=== PATIENT | male | born 1985 | race Caucasian/White ===

== ENCOUNTER 2020-11-28 10:21 | Emergency (ER) | payer MEDICAID, SELFPAY ==
--- NOTE | ~2020-11-28 | XR_ITS ---
EXAMINATION: XR FOOT, RIGHT CLINICAL INFORMATION: Status post fall with bruising to the proximal toes COMPARISON: None TECHNIQUE: AP, lateral, and oblique views of the right foot. FINDINGS: There is a minimally displaced vertical fracture extending to the mid and distal segments of proximal phalanx second digit with mild soft tissue swelling. There is intra-articular extension to the PIP joint. No additional fractures seen. The ankle mortise and subtalar joints are normal. There is calcaneal heel enthesophyte. XR/XR foot RT min 3V IMPRESSION: Nondisplaced longitudinal fracture mid and distal segments of proximal phalanx second digit with intra-articular extension to PIP joint. Mild soft tissue swelling
--- NOTE | ~2020-11-28 | CT_ITS ---
EXAMINATION: CT HEAD WITHOUT CONTRAST CLINICAL INFORMATION: Status post fall with loss of consciousness and headache COMPARISON: None TECHNIQUE: Contiguous axial imaging was performed from the skull base to vertex without intravenous administration of contrast. This CT examination was performed using dose optimization techniques as appropriate, variously including the following: *Automated exposure control *Adjustment of mA and/or kV according to patient size (this includes techniques or standardized protocols for targeted exams where dose is matched to indication/reason for exam; i.e. extremities or head) *Use of iterative reconstruction technique DLP: 855.31 mGy-cm FINDINGS: There is no evidence of acute intracranial hemorrhage or territorial infarction. No abnormal mass effect or midline shift is seen. Page to white matter differentiation is well preserved. No extra-axial fluid collections are identified. The ventricles are normal in size. There is no abnormal attenuation within the brain parenchyma. The osseous structures and soft tissues are normal. The mastoid air cells and visualized portions of the paranasal sinuses are well aerated. CT/CT head/brain wo con IMPRESSION: No acute intracranial pathology.
--- NOTE | ~2020-11-28 | CT_ITS ---
EXAMINATION: CT CERVICAL SPINE WITHOUT CONTRAST CLINICAL INFORMATION: Status post fall with loss of consciousness COMPARISON: None TECHNIQUE: Helical imaging of the cervical spine was performed in the axial plane with generation of coronal and sagittal reformatted images. This CT examination was performed using dose optimization techniques as appropriate, variously including the following: *Automated exposure control *Adjustment of mA and/or kV according to patient size (this includes techniques or standardized protocols for targeted exams where dose is matched to indication/reason for exam; i.e. extremities or head) *Use of iterative reconstruction technique DLP: 698.49 mGy-cm FINDINGS: There is straightening of the normal lordosis of the cervical spine. The vertebral body heights and intervertebral disc spaces are maintained. No acute fracture or dislocation. There is an old fracture of the right first rib. No significant degenerative changes. The prevertebral soft tissues are normal. The airway is patent. Mastoid air cells are well aerated. CT/CT cervical spine wo con IMPRESSION: No acute bony abnormality of the cervical spine.
[2020-11-28 10:27] VITALS: BP 188/89; PULSE 88; RESP 18; TEMP 36.1; O2SAT 98; BMI 39.0
--- NOTE | 2020-11-28 10:42 | ED.FALL ---
HPI - Fall General Chief Complaint: Fall Stated Complaint: FELL IN SHOWER Time Seen by Provider: 11/28/20 10:34 Source: patient Mode of arrival: wheelchair Limitations: no limitations History of Present Illness HPI Narrative: 35 yo male with history of DM2, alcohol use who presents to the ER with right foot pain and headache after be slipped and fell in the shower last night. He states he drank 4 beers at approximately 6 pm. He took a shower when it was still light out. When he was washing his feet, he slipped, fell back hit his head and lost consciousness for possibly several hours. He reports when he woke up it was dark outside and the water the hitting him. He was able to get up out of the shower but says he was dizzy and had a headache. He noticed a cut to the outside of his right foot. He was able to sleep ok but when he got up to get ready for work this morning his foot pain was worse. He is barely able to walk on it. He also reports a migraine headache. No neck pain, vision changes, N/V, confusion or lethargy. He is not on anticoagulation. MD complaint: fall Onset (ago): day(s) Fall from: standing Fall witnessed: no Place fall occurred: home (lives alone in a motel) Loss of consciousness: yes Prolonged down time: unclear Context: tripped/slipped and alcohol use Location of injury: head Location of injury - extremities: right: foot (lateral aspect and proximal toes 2-4) Severity: moderate Severity scale (1-10): 6 Quality: aching Associated symptoms (after fall): headache, unable to walk and vertigo (last night, now resolved) Related Data Previous Rx's Medication Instructions Recorded ibuprofen 600 mg PO Q8H PRN #10 tab 11/28/20 Allergies Allergy/AdvReac Type Severity Reaction Status Date / Time amoxicillin [AMOXICILLIN] Allergy Unknown ANAPHYLAXIS Verified 11/28/20 10:27 bee pollen [BEE STINGS] Allergy Unknown ANAPHYLAXIS Verified 11/28/20 10:27 Review of Systems Review of Systems: Constitutional: No Fever, No Chills ENT/Mouth: No sore throat, No Rhinorrhea, No Swallowing Difficulty Eyes: No Eye Pain, No Swelling, No Redness Cardiovascular: No Chest Pain, No SOB, No Orthopnea, No Edema Respiratory: No Cough, No Sputum, No Wheezing, No dyspnea Gastrointestinal: No Nausea, No Vomiting, No Diarrhea, No abdominal Pain, No Hematochezia, No Melena Genitourinary: No Dysuria, No Urinary Frequency, No Hematuria Musculoskeletal: + joint pain, + Myalgias Skin: No Skin Lesions, No rash Neuro: No Weakness, No Numbness, + Dizziness, + Headache Psych: No Anxiety/Panic, No Depression Heme/Lymph: + Bruising, No Lymphadenopathy Endocrine: No Polyuria, No Polydipsia [facility] Past Medical History Attestation statement: The following information was validated with the patient. Medical History Diabetes type 2, controlled Social History Social History Advance Directives: Yes Advance Directives Information Provided: Yes Advance Directives on File: No Physical Exam Vital Signs: Vital Signs: Last Vital Signs Temp 97.0 F 11/28/20 10:27 Pulse 88 11/28/20 10:27 Resp 18 11/28/20 10:27 BP 188/89 H 11/28/20 10:27 Pulse Ox 98 11/28/20 10:27 Body Mass Index 39.0 Appearance: Alert. Oriented X3. No acute distress. Head/Neck: atraumatic, normocephalic. no palpable hematoma or skull fracutre. no cervical spinal tenderness, normal ROM Eyes: Pupils equal, round and reactive to light. EOMI, no nystagmus ENT: Pharynx normal. No dental trauma Neck: Normal inspection. Neck supple. CVS: Normal heart rate and rhythm. Pulses normal. Respiratory: No respiratory distress. Breath sounds normal. Abdomen: Soft and nontender. +BS x4 Skin: Skin warm and dry. Normal skin color. Normal skin turgor. No rashes. Extremities: right upper thigh with large ecchymosis, right foot cool to touch with 2+ DP pulse, ecchymosis to proximal digits 2-4 with tenderness, superficial laceration to lateral aspect of the foot, no active bleeding. leg compartments are soft and compressible Neuro: Oriented X 3. No motor deficit. No sensory deficit. Course Course Course Narrative: 35 y/o male presenting with right foot pain and headache s/p fall in the shower last night with LOC and potential significant down time. Neuro exam is intact. Suspect ETOH playing a role. Will get CT head/C-spine, lab workup, EKG and XR's of the foot. No evidence of compartment syndrome. Reevaluation(s) Reevaluation #1: CT head and neck are unremarkable. XR foot showed 2nd digit proximal phalanx fracture, non-displaced. Amirah taped with great toe. Will provide post-op shoe. Reevaluation #2: Labs pending. Signed out to Giorgi Callahan will assume care. MDM - Fall Lab Data Result diagrams: 11/28/20 10:58 11/28/20 10:58 Labs: Lab Results 11/28/20 11/28/20 Range/Units 10:46 10:58 WBC 7.5 (4.8-10.8) X10*3/uL RBC 4.47 L (4.60-5.80) X10*6/uL Hgb 13.9 L (14.0-18.0) g/dl Hct 41.0 L (42-52) % MCV 91.7 (80-98) fL MCH 31.1 (27.0-33.0) pg MCHC 33.9 (31.0-36.0) g/dl RDW 11.4 (11.0-16.0) % Plt Count 260 (160-400) X10*3/uL MPV 10.3 (9.4-12.4) fL Immature Gran % (Auto) 0.1 (0.0-0.4) % Neut % (Auto) 72.6 (45-73) % Lymph % (Auto) 19.9 L (20-40) % [place] % (Auto) 6.6 (2-11) % Eos % (Auto) 0.1 (0-4) % Baso % (Auto) 0.7 (0-2) % Lymph # (Auto) 1.5 (1.2-4.9) X10*3/uL [place] # (Auto) 0.5 (0.1-1.2) X10*3/uL Eos # (Auto) 0.0 (0.0-0.4) X10*3/uL Baso # (Auto) 0.1 (0.0-0.2) X10*3/uL Abs Immat Gran (auto) 0.01 (0.00-0.03) X10*3/uL Absolute Neuts (auto) 5.4 (2.0-8.3) X10*3/uL Absolute Nucleated RBC 0.000 (0.0-0.012) X10*3/uL Nucleated RBC % (auto) 0.0 (0.0-0.2) /100WBC POC Glucose 200 H (60-115) mg/dL Discharge Plan Discharge Clinical Impression: Fracture of toe of left foot Qualifiers: Encounter type: initial encounter Toe: lesser toe Fracture type: closed Phalanx: proximal Fracture alignment: nondisplaced Qualified Code(s): S92.515A - Nondisplaced fracture of proximal phalanx of left lesser toe(s), initial encounter for closed fracture Concussion with loss of consciousness Qualifiers: Encounter type: initial encounter Qualified Code(s): S06.0X9A - Concussion with loss of consciousness of unspecified duration, initial encounter Patient Disposition: Home, Self-Care Instructions: Toe Fracture (ED), Abuse of Alcohol (ED) Additional Instructions: You likely sustained a concussion. Recommend physical and mental rest. Avoid screen time on phones and televisions. Your x-ray showed a broken bone in your 2nd toe. Recommend amirah taping them together for support. Wear post-op shoe for comfort. Follow up with Orthopedics. Recommend cutting back on your alcohol intake. This was a big factor in your fall. Prescriptions: New ibuprofen 600 mg tablet 600 mg PO Q8H PRN (Reason: pain) Qty: 10 RF: 0 Referrals: Praveen Lara PA-C [[facility]] - 1 week (broken toe)
--- NOTE | 2020-11-28 10:47 | ECG_ITS ---
Test Reason : SYNCOPE Blood Pressure : / mmHG Vent. Rate : 072 BPM Atrial Rate : 072 BPM P-R Int : 166 ms QRS Dur : 098 ms QT Int : 380 ms P-R-T Axes : 037 037 028 degrees QTc Int : 416 ms Normal sinus rhythm with sinus arrhythmia Normal ECG No previous ECGs available Referred By: Adriana Drake Electronically Signed By:DELORIS WILLIS
[2020-11-28 10:55] LABS: Glucose, Whole Blood 200 mg/dL (60-115)
[2020-11-28 11:01] LABS: MANUAL DIFF FLAG NO
[2020-11-28 11:05] LABS: Basophils Absolute Auto 0.1 X10*3/uL (0.0-0.2); Basophils Percent Auto 0.7 % (0-2); Eosinophils Percent Auto 0.1 % (0-4); Hemoglobin 13.9 g/dl (14.0-18.0); Imm Gran Abs Auto 0.01 X10*3/uL (0.00-0.03); Imm Gran Pct Auto 0.1 % (0.0-0.4); Lymphocytes Absolute Auto 1.5 X10*3/uL (1.2-4.9); Lymphocytes Percent Auto 19.9 % (20-40); Mean Corpuscular HGB Conc 33.9 g/dl (31.0-36.0); Mean Corpuscular Hemoglobin 31.1 pg (27.0-33.0); Mean Corpuscular Volume 91.7 fL (80-98); Mean Platelet Volume 10.3 fL (9.4-12.4); Monocytes Absolute Auto 0.5 X10*3/uL (0.1-1.2); Monocytes Percent Auto 6.6 % (2-11); Neutrophils Absolute Auto 5.4 X10*3/uL (2.0-8.3); Neutrophils Percent Auto 72.6 % (45-73); Platelet Count 260 X10*3/uL (160-400); Red Blood Count 4.47 X10*6/uL (4.60-5.80); Red Cell Distribution Width 11.4 % (11.0-16.0); White Blood Count 7.5 X10*3/uL (4.8-10.8)
[2020-11-28 13:44] VITALS: BP 143/55; PULSE 72; RESP 20; TEMP 36.6; O2SAT 98
[2020-11-28 13:54] LABS: Glucose Urine UA 100 MG/DL (NEG); Leukocyte Esterase Urine NEG (NEG); Nitrite Urine NEG (NEG); Specific Gravity - Urine 1.025 (1.005-1.025); Urine Blood NEG (NEG); Urine Ketones NEG (NEG); Urine Protein TRACE MG/DL (NEG-TRACE)
[2020-11-28 13:56] LABS: Appearance Urine HAZY; Color Urine YELLOW
[2020-11-28 13:58] LABS: Ethanol < 10 mg/dL
[2020-11-28 14:00] LABS: Alanine Aminotransferase 57 U/L (0-40); Albumin Level 4.2 g/dL (3.5-5.0); Alkaline Phosphatase 103 U/L (39-117); Anion Gap 12 (12-20); Aspartate Amino Transferase 40 U/L (5-37); Bilirubin Direct 0.3 mg/dL (0.0-0.5); Bilirubin Total 0.6 mg/dL (0.0-1.0); Blood Urea Nitrogen 15 mg/dL (9-16); Calcium 8.9 mg/dL (8.4-10.2); Carbon Dioxide 23 mmol/L (22-29); Chloride 106 mmol/L (96-108); Creatinine Clr Calc Pharmacy 180.6; Estimated Glomerular Filt Rate > 60; Glucose Random 148 mg/dL (60-115); Potassium 4.2 mmol/L (3.3-5.1); Sodium 137 mmol/L (135-145); Total Protein 6.8 g/dL (6.5-8.0)
[2020-11-28 14:23] LABS: Amphetamine Screen Urine Not Detected (Not Detect); Barbiturates, Urine Not Detected (Not Detect); Benzodiazepines Screen Urine Not Detected (Not Detect); Cannabinoid Screen Urine POSITIVE (Not Detect); Cocaine Screen Urine Not Detected (Not Detect); Opiate Screen Urine Not Detected (Not Detect); Phencyclidine Screen Urine Not Detected (Not Detect)
== END 2020-11-28 14:44 | disposition home or self-care (01) ==
PROVIDERS: Physician Assistant; Emergency Provider Emergency Medicine Emergency Medical Services
DX: S92.515A Nondisplaced fracture of proximal phalanx of left lesser toe(s), initial encounter for closed fracture (principal); S06.9X9A Unspecified intracranial injury with loss of consciousness of unspecified duration, initial encounter; M54.9 Dorsalgia, unspecified; M54.2 Cervicalgia; M79.672 Pain in left foot; W18.2XXA Fall in (into) shower or empty bathtub, initial encounter; Y93.E1 Activity, personal bathing and showering; Y92.002 Bathroom of unspecified non-institutional (private) residence as the place of occurrence of the external cause; Y99.9 Unspecified external cause status; Z79.899 Other long term (current) drug therapy
CPT/HCPCS: 36415; 70450; 72125; 73630; 80048; 80076; 80307; 81003; 82077; 82550; 82947; 85025; 93005; 99284

== ENCOUNTER 2021-10-26 18:03 | Emergency (ER) | payer MEDICAID, SELFPAY ==
--- NOTE | ~2021-10-26 | XR_ITS ---
EXAMINATION: XR CHEST CLINICAL INFORMATION: Coughing, question pneumonia COMPARISON: None TECHNIQUE: Frontal view of the chest was obtained. FINDINGS: No significant abnormality is noted involving the heart, lungs, mediastinum, bony thorax or soft tissues. XR/XR chest 1V IMPRESSION: No acute cardiopulmonary process.
[2021-10-26 18:29] VITALS: BP 127/77; PULSE 115; RESP 22; TEMP 37.2; O2SAT 97; BMI 38.0
[2021-10-26 18:52] LABS: Strep A Nucleic Acid Negative (Negative)
--- NOTE | 2021-10-26 19:51 | ED.GENADULT ---
HPI - General Adult General Chief complaint: Upper Respiratory Symptoms Stated complaint: coughing/throat pain Time Seen by Provider: 10/26/21 19:25 Source: patient Mode of arrival: ambulatory Limitations: no limitations History of Present Illness HPI narrative: 36-year-old male presents to the ED for coughing, body aches, nasal congestion, chills, and lose voice since this past . Patient states constant coughing/coughing fits. Patient states he tested himself 4 times for COVID and came back negative. Patient denies any shortness of breath, calf pain, coughing up blood, pleurisy, recent long travel, recent surgery, or any history of blood clots. Patint denies any estrogen hormonal use. Patient denies any chest pain. Related Data Previous Rx's Medication Instructions Recorded ibuprofen 600 mg tablet 600 mg PO Q8H PRN #10 tab 11/28/20 hydrocodone-homatropine 5 mg-1.5 5 ml PO Q4-6H PRN 3 Days #473 ml 10/26/21 mg/5 mL oral syrup (Hycodan (with homatropine)) Allergies Allergy/AdvReac Type Severity Reaction Status Date / Time amoxicillin [AMOXICILLIN] Allergy Unknown ANAPHYLAXIS Verified 11/28/20 10:27 bee pollen [BEE STINGS] Allergy Unknown ANAPHYLAXIS Verified 11/28/20 10:27 tizanidine Allergy Hives Verified 10/26/21 18:32 Review of Systems Review of Systems: Coughing, laryngitis, body aches, chills Yes all other systems are reviewed and are negative PMFSH Past Medical History Medical History Diabetes type 2, controlled Social History Social History Advance Directives: No Advance Directives Information Provided: No Physical Exam ED Vital Signs: Vital Signs - 24 hr 10/26/21 18:29 10/26/21 20:13 10/26/21 21:35 Temperature 99.0 F 99.0 F Pulse Rate 115 H 115 H 87 Respiratory Rate 22 H 22 H 18 Blood Pressure 127/77 127/73 Pulse Oximetry 97 96 BMI result Body Mass Index 38.0 Const General: cooperative, healthy appearing, comfortable, no acute distress, well developed, alert, awake and Physically active Orientation/consciousness: patient oriented x3 HENMT Head: Yes normal to inspection, Yes No palpable skull fracture present, Yes normocephalic, Yes atraumatic and No abrasion Ears: hearing grossly normal bilaterally, external ears normal, TM's normal bilaterally, EAC's normal, mastoids normal and no periauricular adenopathy Throat: Yes posterior oropharynx normal, Yes tonsils normal and Yes uvula midline Eyes General: appearance normal, both eyes and all related structures Neck Neck: Yes normal visual inspection, Yes full ROM, Yes no lymphadenopathy, Yes no meningeal signs, Yes trachea midline, Yes supple, No anterior neck swelling and No tender Chest Chest palpation & inspection: normal inspection of the chest and normal palpation of entire chest wall Resp Effort & Inspection: normal respiratory effort and able to speak in complete sentences Auscultation: clear to auscultation bilaterally Cardio Jugular venous distension: no JVD Heart sounds: S1 normal heart sound present and S2 normal heart sound present GI Inspection: Yes normal to inspection and No abdominal wall ecchymosis Palpation (GI): Soft to palpation, not firm, nontender, no guarding and not rigid General: No CVA tenderness and Yes no CVA tenderness Back/Spine/Pelvis Back: no CVA tenderness, No CVA tenderness and No back tenderness Skin General skin exam: no rashes or lesions noted and elasticity normal Neuro General: patient oriented x3, gait normal, no meningeal signs and CN's II-XI intact bilaterally Cranial nerves: Yes CN's II-XII intact bilaterally Extrem Other: Lower extremities negative for swelling, pain edema, or calf tenderness. General: Yes normal to inspection and Yes full ROM Psych Appearance: grossly normal, well kempt and not disheveled Course Course Course Narrative: Patient will be swabbed for strep, COVID, influenza and have a chest x-ray ordered. Reevaluation(s) Reevaluation #1: Patient's chest x-ray normal. COVID and influenza swab came back negative. Will discharge with Vicodin for cough and patient informed to continue using inhaler given by respiratory therapist. Not suspecting VT or PE. Patient feels better after using albuterol inhaler. Time: 21:04 Medical Decision Making [facility] Narrative Medical decision making narrative: Bronchitis Lab Data Labs: Lab Results 10/26/21 10/26/21 10/26/21 Range/Units 18:34 19:51 19:51 COVID-19 ([place]) Negative (Negative) COVID-19 Clin Com See Note Influenza Type A ([place]) Negative (Negative) Influenza Type B ([place]) Negative (Negative) Influenza A & B Note See Note S. pyogenes GrpA [place] Negative (Negative) Discharge Plan Discharge Clinical Impression: Bronchitis Patient Disposition: Home, Self-Care Instructions: Acute Bronchitis (ED) Additional Instructions: Your x-ray, COVID swab, influenza swab came back negative. Continue using albuterol inhaler given to you by respiratory therapist 2 puffs every 6 hours as needed. You also be discharged with coughing medication. Return to ED for any shortness of breath, coughing up blood, leg swelling, fever, chills, calf pain, chest pain, chest pain on inspiration, shortness of breath, passing out, dizziness, or any other concerning symptoms. Please follow-up with primary care provider Prescriptions: New hydrocodone-homatropine [Hycodan (with homatropine)] 5-1.5 mg/5 mL syrup 5 ml PO Q4-6H PRN (Reason: cough) 3 Days Qty: 473 0RF Rx Instructions: side effect is drowsiness. Do not take at work or while driving. No Action ibuprofen 600 mg tablet 600 mg PO Q8H PRN (Reason: pain) Qty: 10 0RF Stand Alone Forms: Work/School Release Interventions: ED Discharge Assessment Last Done: 10/26/21 21:48 Discharge Date/Time: 10/26/21 21:49 Print Language: Mauritian
[2021-10-26] MEDS: Albuterol Sulfate 90 MCG 8 GM INHALER 4 PUFF INHALE (20:09)
[2021-10-26 20:13] VITALS: PULSE 115; RESP 22
[2021-10-26 20:18] LABS: COVID-19 Test Negative (Negative); Influenza A Negative (Negative); Influenza B2 Negative (Negative)
[2021-10-26] MEDS: guaiFENesin 200 MG/10 ML 10 ML LIQUID PO (20:19)
[2021-10-26 21:35] VITALS: BP 127/73; PULSE 87; RESP 18; TEMP 37.2; O2SAT 96
== END 2021-10-26 21:49 | disposition home or self-care (01) ==
PROVIDERS: Physician Assistant; Emergency Provider Emergency Medicine
DX: J40 Bronchitis, not specified as acute or chronic (principal); E11.9 Type 2 diabetes mellitus without complications; Z20.822 Contact with and (suspected) exposure to COVID-19
CPT/HCPCS: 36415; 71045; 87502; 87635; 87651; 94640; 94664; 99284

== ENCOUNTER 2022-11-25 14:00 | Emergency (ER) | payer MEDICAID, SELFPAY ==
[2022-11-25 14:04] VITALS: BP 150/77; PULSE 78; RESP 18; TEMP 35.9; O2SAT 96; BMI 73.8
--- NOTE | 2022-11-25 14:04 | ED.GENADULT ---
HPI - General Adult General Chief complaint: Psychiatric Symptoms Stated complaint: crisis Time Seen by Provider: 11/25/22 14:40 Source: patient Mode of arrival: ambulatory Limitations: no limitations History of Present Illness HPI narrative: 37-year-old male with history of PTSD, depression, anxiety, possible bipolar disorder presents for psychiatric evaluation. Patient has been off of his medications for approximately 6 months. He has noticed a slow downward spiral. He has been using cocaine and alcohol on a regular basis. His last use of alcohol was last night his last use of cocaine was this morning. He does describe some mild to moderate withdrawal type symptoms. He denies any suicidal homicidal ideation. He has been to detox and psychiatric hospitalization in the past. There is no clear relieving features. Symptoms are worsened by polysubstance abuse and not taking medications. There is no clear relieving features. Related Data Previous Rx's Medication Instructions Recorded ibuprofen 600 mg tablet 600 mg PO Q8H PRN pain #10 tabs 11/28/20 hydrocodone-homatropine 5 mg-1.5 5 ml PO Q4-6H PRN cough 3 days 10/26/21 mg/5 mL oral syrup (Hycodan (with #473 mL homatropine)) codeine 10 mg-guaifenesin 100 mg/5 5 ml PO Q4-6H PRN cold symptoms 10/28/21 mL oral liquid #120 mL Allergies Allergy/AdvReac Type Severity Reaction Status Date / Time amoxicillin [AMOXICILLIN] Allergy Unknown ANAPHYLAXIS Verified 11/25/22 14:09 bee pollen [BEE STINGS] Allergy Unknown ANAPHYLAXIS Verified 11/25/22 14:09 tizanidine Allergy Hives Verified 11/25/22 14:09 Review of Systems Review of Systems: CONSTITUTIONAL: Denies weight loss, fever and chills. HEENT: Denies changes in vision and hearing. RESPIRATORY: Denies SOB and cough. CV: Denies palpitations no CP. GI: Denies abdominal pain, nausea, vomiting and diarrhea. : Denies dysuria and urinary frequency. MSK: Denies myalgia and joint pain. SKIN: Denies rash and pruritus. NEUROLOGICAL: Denies headache and syncope. All other ROS are negative unless in HPI PMFSH Past Medical History Medical History Diabetes type 2, controlled Social History Social History Alcohol intake: current Alcohol intake frequency: 3 or more drinks per day Alcohol type: beer and hard liquor Smoked in Last 30 Days: Yes Use of substances other than those prescribed or required for medical reasons: Yes Substance Use Type: Crack/Cocaine Substance Use Frequency: Chronic Longstanding Last Used Substance: Hours (ago) Any prior treatment program specific to substance use: Yes Advance Directives: No Advance Directives Information Provided: Yes Physical Exam ED Vital Signs: Vital Signs - 24 hr 11/25/22 14:04 11/25/22 15:52 Temperature 96.6 F L 97.9 F Pulse Rate 78 58 Respiratory Rate 18 16 Blood Pressure 150/77 H 116/49 L Pulse Oximetry 96 98 Oxygen Delivery Method Room Air Room Air BMI result Body Mass Index 73.8 GEN: Well developed, no acute distress, alert, oriented HEENT: Normocephalic, atraumatic, normal external ears, nose appears normal, no oropharyngeal edema or exudates Eyes: Normal to appearance Neck: Supple, no lymphadenopathy Respiratory: Talks in complete sentences, no respiratory distress, clear to auscultation bilaterally Cardiovascular: Regular rate and rhythm, no murmurs rubs or gallops Abdomen: Soft, nontender, nondistended, no guarding, no rebound Back: No CVA tenderness Extremities: No clubbing cyanosis or edema Neurologic: No focal neurologic deficits, cranial nerves 2-12 intact, strength is 5/5 bilaterally Skin: No rash Course Course Course Narrative: RME performed by Nikky Whitlock PA-C. Patient is a 37 year old assigned male at presenting to the emergency department in a crisis. Patient states that he has been off of his meds for a few months and has been drinking more and more. Labs ordered. Patient placed back in the waiting room pending room availability and results. Reevaluation(s) Reevaluation #1: Medically cleared for evaluation Time: 15:26 Reevaluation #2: Patient will be sign out to Dr. Hamilton pending evaluation Time: 16:16 Medical Decision Making Medical Decision Making [facility] Narrative: 37-year-old male with history of polysubstance abuse, previous psychiatric diagnoses presents for psychiatric evaluation. Denies suicidality. He does admit to polysubstance abuse. He has been off of his medications for quite sometime. Will medically clear the patient. Patient will require psychiatric evaluation. Once had evaluations complete, appropriate disposition can be made. Differential Diagnosis Differential Diagnoses: The differential diagnosis associated with the presentation includes (Substance induced mood disorder, bipolar disorder, depression, anxiety, PTSD) Substance induced mood disorder Admission/Observation Consideration of admission/observation: Escalation of care including admission/observation considered Consult Healthcare Provider Management of the patient was discussed with: Behavioral Health Provider Lab Data MDM Lab Attestation statement: I reviewed the patient's lab results. 11/25/22 14:36 11/25/22 14:36 Labs: Lab Results 11/25/22 11/25/22 11/25/22 Range/Units 14:36 14:36 14:36 WBC 7.3 (4.8-10.8) X10*3/uL RBC 4.99 (4.60-5.80) X10*6/uL Hgb 14.9 (14.0-18.0) g/dl Hct 44.1 (42.0-52.0) % MCV 88.4 (80.0-98.0) fL MCH 29.9 (27.0-33.0) pg MCHC 33.8 (31.0-36.0) g/dl RDW 11.8 (11.0-16.0) % Plt Count 269 (160-400) X10*3/uL MPV 9.9 (9.4-12.4) fL Immature Gran % (Auto) 0.1 (0.0-0.4) % Neut % (Auto) 59.7 (45-73) % Lymph % (Auto) 32.3 (20-40) % [place] % (Auto) 6.6 (2-11) % Eos % (Auto) 0.8 (0-4) % Baso % (Auto) 0.5 (0-2) % Lymph # (Auto) 2.4 (1.2-4.9) X10*3/uL [place] # (Auto) 0.5 (0.1-1.2) X10*3/uL Eos # (Auto) 0.1 (0.0-0.4) X10*3/uL Baso # (Auto) 0.0 (0.0-0.2) X10*3/uL Abs Immat Gran (auto) 0.01 (0.00-0.03) X10*3/uL Absolute Neuts (auto) 4.4 (2.0-8.3) x10*3/uL Absolute Nucleated RBC 0.000 (0.0-0.012) X10*3/uL Nucleated RBC % (auto) 0.0 (0.0-0.2) /100WBC Sodium 142 (135-145) mmol/L Potassium 4.0 (3.3-5.1) mmol/L Chloride 108 (96-108) mmol/L Carbon Dioxide 25 (22-29) mmol/L Anion Gap 13 (12-20) BUN 10 (9-16) mg/dL Creatinine 0.77 (0.5-1.4) mg/dL Estim Creat Clear Calc 257.2 Estimated GFR > 60 Random Glucose 162 H (60-115) mg/dL Calcium 9.0 (8.4-10.2) mg/dL Total Bilirubin 0.7 (0.0-1.0) mg/dL AST 10 (5-37) U/L ALT 10 (0-40) U/L Alkaline Phosphatase 85 (39-117) U/L Total Protein 6.9 (6.5-8.0) g/dL Albumin 4.1 (3.5-5.0) g/dL Urine Color Yellow Urine Appearance Cloudy Urine pH 5.5 (5.0-9.0) Ur Specific [place] >= 1.030 H (1.005-1.025) Urine Protein Trace (Neg-Trace) mg/dL Urine Glucose (UA) 500 H (Negative) mg/dL Urine Ketones Negative (Negative) mg/dL Urine Blood Negative (Negative) Urine Nitrite Negative (Negative) Ur Leukocyte Esterase Small (1+) H (Negative) Urine RBC 3-5 H (0-2) /HPF Urine WBC 21-50 (0-5) /HPF Ur Squamous Epith Cells 3-5 (0-2) /HPF Urine Bacteria 4+ (None Seen) Hyaline Casts 0-2 (0-2) /LPF Salicylates < 5.0 L (15-30) mg/dL Urine Opiates Screen (Not Detect) Urine Fentanyl Screen (Not Detect) Acetaminophen < 17 (<30) mcg/mL Ur Barbiturates Screen (Not Detect) Ur Phencyclidine Scrn (Not Detect) Ur Amphetamines Screen (Not Detect) U Benzodiazepines Scrn (Not Detect) Urine Cocaine Screen (Not Detect) U Marijuana (THC) Screen (Not Detect) Ethyl Alcohol < 10 mg/dL 11/25/22 Range/Units 14:36 WBC (4.8-10.8) X10*3/uL RBC (4.60-5.80) X10*6/uL Hgb (14.0-18.0) g/dl Hct (42.0-52.0) % MCV (80.0-98.0) fL MCH (27.0-33.0) pg MCHC (31.0-36.0) g/dl RDW (11.0-16.0) % Plt Count (160-400) X10*3/uL MPV (9.4-12.4) fL Immature Gran % (Auto) (0.0-0.4) % Neut % (Auto) (45-73) % Lymph % (Auto) (20-40) % [place] % (Auto) (2-11) % Eos % (Auto) (0-4) % Baso % (Auto) (0-2) % Lymph # (Auto) (1.2-4.9) X10*3/uL [place] # (Auto) (0.1-1.2) X10*3/uL Eos # (Auto) (0.0-0.4) X10*3/uL Baso # (Auto) (0.0-0.2) X10*3/uL Abs Immat Gran (auto) (0.00-0.03) X10*3/uL Absolute Neuts (auto) (2.0-8.3) x10*3/uL Absolute Nucleated RBC (0.0-0.012) X10*3/uL Nucleated RBC % (auto) (0.0-0.2) /100WBC Sodium (135-145) mmol/L Potassium (3.3-5.1) mmol/L Chloride (96-108) mmol/L Carbon Dioxide (22-29) mmol/L Anion Gap (12-20) BUN (9-16) mg/dL Creatinine (0.5-1.4) mg/dL Estim Creat Clear Calc Estimated GFR Random Glucose (60-115) mg/dL Calcium (8.4-10.2) mg/dL Total Bilirubin (0.0-1.0) mg/dL AST (5-37) U/L ALT (0-40) U/L Alkaline Phosphatase (39-117) U/L Total Protein (6.5-8.0) g/dL Albumin (3.5-5.0) g/dL Urine Color Urine Appearance Urine pH (5.0-9.0) Ur Specific [place] (1.005-1.025) Urine Protein (Neg-Trace) mg/dL Urine Glucose (UA) (Negative) mg/dL Urine Ketones (Negative) mg/dL Urine Blood (Negative) Urine Nitrite (Negative) Ur Leukocyte Esterase (Negative) Urine RBC (0-2) /HPF Urine WBC (0-5) /HPF Ur Squamous Epith Cells (0-2) /HPF Urine Bacteria (None Seen) Hyaline Casts (0-2) /LPF Salicylates (15-30) mg/dL Urine Opiates Screen Not Detected (Not Detect) Urine Fentanyl Screen Not Detected (Not Detect) Acetaminophen (<30) mcg/mL Ur Barbiturates Screen Not Detected (Not Detect) Ur Phencyclidine Scrn Not Detected (Not Detect) Ur Amphetamines Screen Not Detected (Not Detect) U Benzodiazepines Scrn Not Detected (Not Detect) Urine Cocaine Screen POSITIVE H (Not Detect) U Marijuana (THC) Screen POSITIVE H (Not Detect) Ethyl Alcohol mg/dL Independent Interpretation I performed an independent interpretation of an: EKG (Normal sinus rhythm heart rate 67, normal intervals, no acute ST elevations depressions) Discharge Plan Discharge Clinical Impression: Polysubstance abuse, History of post traumatic stress disorder, History of depression, Homelessness Patient Disposition: Still a Patient Prescriptions: No Action ibuprofen 600 mg tablet 600 mg PO Q8H PRN (Reason: pain) Qty: 10 0RF hydrocodone-homatropine [Hycodan (with homatropine)] 5-1.5 mg/5 mL syrup 5 ml PO Q4-6H PRN (Reason: cough) 3 Days Qty: 473 0RF Rx Instructions: side effect is drowsiness. Do not take at work or while driving. codeine-guaifenesin 10-100 mg/5 mL liquid 5 ml PO Q4-6H PRN (Reason: cold symptoms) Qty: 120 0RF Interventions: [place]-Suicide Risk Severity Scale Last Done: 11/25/22 15:14
--- NOTE | 2022-11-25 14:05 | ECG_ITS ---
Test Reason : med clearance Blood Pressure : / mmHG Vent. Rate : 067 BPM Atrial Rate : 067 BPM P-R Int : 196 ms QRS Dur : 106 ms QT Int : 420 ms P-R-T Axes : 000 113 139 degrees QTc Int : 443 ms Sinus rhythm with Premature atrial complexes Left posterior fascicular block Abnormal ECG When compared with ECG of 28-NOV-2020 11:02, Premature atrial complexes are now Present Left posterior fascicular block is now Present Referred By: Nikky Whitlock Electronically Signed By:DELORIS WILLIS
[2022-11-25 14:44] LABS: Appearance Urine Cloudy; Basophils Percent Auto 0.5 % (0-2); Color Urine Yellow; Eosinophils Absolute Auto 0.1 X10*3/uL (0.0-0.4); Eosinophils Percent Auto 0.8 % (0-4); Glucose Urine UA 500 mg/dL (Negative); Hematocrit 44.1 % (42.0-52.0); Hemoglobin 14.9 g/dl (14.0-18.0); Imm Gran Abs Auto 0.01 X10*3/uL (0.00-0.03); Imm Gran Pct Auto 0.1 % (0.0-0.4); Leukocyte Esterase Urine Small (1+) (Negative); Lymphocytes Absolute Auto 2.4 X10*3/uL (1.2-4.9); Lymphocytes Percent Auto 32.3 % (20-40); MANUAL DIFF FLAG NO; Mean Corpuscular HGB Conc 33.8 g/dl (31.0-36.0); Mean Corpuscular Hemoglobin 29.9 pg (27.0-33.0); Mean Corpuscular Volume 88.4 fL (80.0-98.0); Mean Platelet Volume 9.9 fL (9.4-12.4); Monocytes Absolute Auto 0.5 X10*3/uL (0.1-1.2); Monocytes Percent Auto 6.6 % (2-11); Neutrophils Absolute Auto 4.4 x10*3/uL (2.0-8.3); Neutrophils Percent Auto 59.7 % (45-73); Nitrite Urine Negative (Negative); PH 5.5 (5.0-9.0); Platelet Count 269 X10*3/uL (160-400); Red Blood Count 4.99 X10*6/uL (4.60-5.80); Red Cell Distribution Width 11.8 % (11.0-16.0); Specific Gravity - Urine >= 1.030 (1.005-1.025); UMIC TRIGGER UA YES; Urine Blood Negative (Negative); Urine Ketones Negative (Negative); Urine Protein Trace mg/dL (Neg-Trace); White Blood Count 7.3 X10*3/uL (4.8-10.8)
[2022-11-25 14:54] LABS: Bacteria Urine 4+ (None Seen); Hyaline Casts Urine 0-2 /LPF (0-2); WBC Urine 21-50 /HPF (0-5)
[2022-11-25 14:55] LABS: Amphetamine Screen Urine Not Detected (Not Detect); Barbiturates, Urine Not Detected (Not Detect); Benzodiazepines Screen Urine Not Detected (Not Detect); Cannabinoid Screen Urine POSITIVE (Not Detect); Cocaine Screen Urine POSITIVE (Not Detect); Fentanyl, urine Not Detected (Not Detect); Opiate Screen Urine Not Detected (Not Detect); Phencyclidine Screen Urine Not Detected (Not Detect)
[2022-11-25 15:00] LABS: Acetaminophen LAB < 17 mcg/mL (<30); Alanine Aminotransferase 10 U/L (0-40); Albumin Level 4.1 g/dL (3.5-5.0); Alkaline Phosphatase 85 U/L (39-117); Anion Gap 13 (12-20); Aspartate Amino Transferase 10 U/L (5-37); Bilirubin Total 0.7 mg/dL (0.0-1.0); Blood Urea Nitrogen 10 mg/dL (9-16); Carbon Dioxide 25 mmol/L (22-29); Chloride 108 mmol/L (96-108); Creatinine Clr Calc Pharmacy 257.2; Estimated Glomerular Filt Rate > 60; Ethanol < 10 mg/dL; Glucose Random 162 mg/dL (60-115); Salicylate < 5.0 mg/dL (15-30); Sodium 142 mmol/L (135-145); Total Protein 6.9 g/dL (6.5-8.0)
--- NOTE | 2022-11-25 15:13 | PC.NURSE ---
Report received from CYNTHIA Ayala Pt reports his last use of cocaine and ETOH was 4-5 hours prior to admission here. This RN placed patient on monitor for possible ETOH withdrawal. pt normal sinus in the 60-70s at this time. Pt has 1:1 sitter for safety due to suicidal ideation. Plan of care, monitor for withdrawal symptoms at this time
[2022-11-25 15:52] VITALS: BP 116/49; PULSE 58; RESP 16; TEMP 36.6; O2SAT 98
--- NOTE | 2022-11-25 17:30 | PC.NURSE ---
pt reports feeling withdrawal symptoms, appears more sweaty than before, tremor in hand noted as wel. pt endorses headache as well as visual hallucinations. MD acosta
[2022-11-25] MEDS: LORazepam 1 MG TABLET 2 MG PO (17:45)
--- NOTE | 2022-11-25 17:51 | PC.NURSE ---
pt medicated per MAR for withdrawal symptoms
[2022-11-25 18:00] VITALS: BP 124/53; PULSE 61; RESP 16; TEMP 36.6; O2SAT 97
[2022-11-25] MEDS: Ibuprofen 600 MG TABLET PO (18:36)
--- NOTE | 2022-11-25 19:57 | PC.NURSE ---
CARE team in to speak with patient at this time
[2022-11-25 20:00] VITALS: BP 139/59; PULSE 73; RESP 16; TEMP 36.8; O2SAT 97
== END 2022-11-25 20:39 | disposition home or self-care (01) ==
PROVIDERS: Physician Assistant Medical; Emergency Provider Emergency Medicine
DX: F19.10 Other psychoactive substance abuse, uncomplicated (principal); F43.10 Post-traumatic stress disorder, unspecified; F32.A Depression, unspecified; E11.9 Type 2 diabetes mellitus without complications; Z59.00 Homelessness unspecified; Z79.899 Other long term (current) drug therapy
CPT/HCPCS: 36415; 80053; 80143; 80179; 80307; 81001; 85025; 93005; 99285; S9485

== ENCOUNTER 2023-10-04 10:39 | Inpatient (IN) | payer MEDICAID, SELFPAY ==
--- NOTE | ~2023-10-04 | CT_ITS ---
EXAMINATION: CT ABDOMEN AND PELVIS WITH CONTRAST CLINICAL INFORMATION: Follow-up small bowel obstruction COMPARISON: 10/04/2023 TECHNIQUE: Multidetector volumetric images were obtained from the superior aspect of the liver through the pubic symphysis following administration 85 mL of Omnipaque 350 intravenous contrast. Sagittal and coronal reformatted images were obtained on the technologist's workstation. Oral contrast: No This CT examination was performed using dose optimization techniques as appropriate, variously including the following: *Automated exposure control *Adjustment of mA and/or kV according to patient size (this includes techniques or standardized protocols for targeted exams where dose is matched to indication/reason for exam; i.e. extremities or head) *Use of iterative reconstruction technique DLP: 1745 mGy-cm FINDINGS: CERTIFIED REAL ESTATE APPRAISER: NG tube, sidehole in the gastric fundus. Significant decrease in number and caliber of dilated small bowel loops. Left base atelectasis. LUNG BASES: Increasing bibasilar atelectasis. Heart size within normal limits. No pericardial effusion LIVER, GALLBLADDER, AND BILIARY TREE: The liver is normal in size, shape, and attenuation. Too small to characterize posterior right hepatic hypodensity, likely cyst. No biliary ductal dilatation is present. The gallbladder is moderately distended with mild sludge. No evidence of radiopaque gallstones, gallbladder wall thickening, or obvious pericholecystic inflammatory changes. PANCREAS: Unremarkable. SPLEEN: Unremarkable. ADRENAL GLANDS: Unremarkable. KIDNEYS AND URETERS: The kidneys are normal in size, shape, and attenuation. No hydronephrosis, hydroureter, or calculi seen. No perinephric stranding. BLADDER: Under distended but unremarkable. GASTROINTESTINAL TRACT: Small hiatal hernia. NG tube with internal tip at the lateral gastric sidewall, sidehole in the proximal medial gastric fundus. Stomach contains small amount of contrast and fluid but is is under distended. Number and degree of small bowel dilated bowel loops have significantly improved with only one remaining prominent bowel loop in the left upper quadrant. Contrast filled normal appearing terminal ileum and appendix. The proximal ascending colon is decompressed likely resulting in thickened appearance of the collins and contrast reaches the rectosigmoid which is decompressed. There is no proximal colonic dilatation suggesting fixed process. Scattered diverticulosis without diverticulitis. PERITONEUM: Small amount of free pelvic fluid has decreased previous study. ABDOMINAL WALL: No significant hernia is appreciated. LYMPH NODES: No pathologic lymphadenopathy. VASCULAR: Mild atherosclerotic calcifications nonaneurysmal aorta and iliac arteries noteworthy given patient's stated age. Unremarkable inferior vena cava and iliac veins. Patent portal system. PELVIC VISCERA: Unremarkable. OSSEOUS STRUCTURES: No suspicious osseous lesions. CT/CT abdomen pelvis w IV con IMPRESSION: Significant improvement in small bowel dilatation. No evidence of mechanical small bowel obstruction. Decreasing free pelvic fluid. Indwelling NG tube as described. Diverticulosis without diverticulitis. Increasing bibasilar atelectasis. Fleischner guidelines were followed.
--- NOTE | ~2023-10-04 | XR_ITS ---
EXAMINATION: XR CHEST CLINICAL INFORMATION: Nasogastric tube placement. COMPARISON: 10/26/2021. TECHNIQUE: Frontal view of the chest was obtained. FINDINGS: Lung volumes are low. The lung apices are not imaged. The cardiomediastinal silhouette is within normal limits and stable. There is mild atelectatic change at the lung bases. The lungs are otherwise clear. A gastric tube extends below the diaphragm into left upper quadrant. The bony structures and soft tissues are unremarkable. XR/XR chest 1V IMPRESSION: Lung apices are not imaged. 1. Gastric tube extends below the diaphragm into the left upper quadrant. 2. Low lung volumes with bibasilar atelectasis.
--- NOTE | ~2023-10-04 | CT_ITS ---
EXAMINATION: CT ABDOMEN AND PELVIS WITH CONTRAST CLINICAL INFORMATION: Left-sided abdominal pain COMPARISON: None available. TECHNIQUE: Multidetector volumetric images were obtained from the superior aspect of the liver through the pubic symphysis following administration 85 mL of Omnipaque 350 intravenous contrast. Sagittal and coronal reformatted images were obtained on the technologist's workstation. Oral contrast: No This CT examination was performed using dose optimization techniques as appropriate, variously including the following: *Automated exposure control *Adjustment of mA and/or kV according to patient size (this includes techniques or standardized protocols for targeted exams where dose is matched to indication/reason for exam; i.e. extremities or head) *Use of iterative reconstruction technique DLP: 994 mGy-cm FINDINGS: LUNG BASES: The visualized lung bases are unremarkable aside from atelectasis in the lingula.. LIVER, GALLBLADDER, AND BILIARY TREE: The liver is normal in size, shape, and attenuation. No focal hepatic lesion or biliary ductal dilatation is present. The gallbladder is unremarkable with no evidence of radiopaque gallstones, gallbladder wall thickening, or obvious pericholecystic inflammatory changes. PANCREAS: Unremarkable. SPLEEN: Unremarkable. ADRENAL GLANDS: Unremarkable. KIDNEYS AND URETERS: The kidneys are normal in size, shape, and attenuation. No hydronephrosis, hydroureter, or calculi seen. No perinephric stranding. BLADDER: Poorly distended with a thickened symmetric wall. GASTROINTESTINAL TRACT: The stomach is markedly distended with fluid. There is dilatation of proximal small bowel loops with decompression of the distal small bowel/ileum. A definite site of mechanical obstruction is not seen although the transition zone is in the right lower quadrant. The appendix is unremarkable. Fluid is present in the rectosigmoid. The remainder of the colon is unremarkable. A few scattered colonic diverticula present without diverticulitis. ABDOMINAL WALL: No significant hernia is appreciated. LYMPH NODES: No retroperitoneal lymphadenopathy. VASCULAR: Unremarkable. PELVIC VISCERA: The prostate and seminal vesicles are unremarkable. A small amount of free pelvic fluid is present. OSSEOUS STRUCTURES: Unremarkable. CT/CT abdomen pelvis w IV con IMPRESSION: 1. Small bowel obstruction with transition zone in the right lower quadrant. A definite obstructing lesion is not seen. 2. Incidental note made of a thickened bladder wall, colonic diverticulosis without diverticulitis and a small amount of free pelvic fluid. Fleischner guidelines were followed.
[2023-10-04 10:43] VITALS: BP 142/88; PULSE 75; O2SAT 95
[2023-10-04 10:48] VITALS: BP 109/82; PULSE 90; RESP 20; TEMP 36.9; O2SAT 96; BMI 34.4
--- NOTE | 2023-10-04 10:59 | ED_ITS ---
HPI - Abdominal Pain General Chief Complaint: Abdominal Pain Stated Complaint: ABD PAIN/DISTENTION X5 HOURS PER EMS Time Seen by Provider: 10/04/23 20:55 Source: patient Mode of arrival: ambulatory Limitations: no limitations History of Present Illness HPI narrative: 38-year-old male history of diabetes presents to the ED or left-sided abdominal pain with diarrhea for the past 6 days. Patient states diarrhea is clear. Patient denies any new antibiotic, recent hospital admission, recent travel. Related Data Home Medications ?Medication ?Instructions ?Recorded ?Confirmed omeprazole 20 mg capsule,delayed 20 mg PO DAILY PRN Acid Reflux 10/05/23 10/05/23 release Allergies Allergy/AdvReac Type Severity Reaction Status Date / Time amoxicillin [AMOXICILLIN] Allergy Unknown ANAPHYLAXIS Verified 11/25/22 14:09 bee pollen [BEE STINGS] Allergy Unknown ANAPHYLAXIS Verified 11/25/22 14:09 tizanidine Allergy Hives Verified 11/25/22 14:09 Review of Systems Review of Systems Left-sided abdominal pain Yes all other systems are reviewed and are negative PMFSH Past Medical History Medical History Diabetes type 2, controlled Social History Social History Alcohol intake: current Alcohol intake frequency: 3 or more drinks per day Alcohol type: beer and hard liquor Patient Tobacco Use Status: Never used Tobacco Smoked in Last 30 Days: Yes Substance Use Type: Crack/Cocaine Advance Directives: No Advance Directives Information Provided: No Nutrition Risks: No Nutritional Risk Physical Exam ED Vital Signs: Vital Signs - 24 hr 10/04/23 19:57 10/05/23 00:37 Temperature 97 F 98.0 F Pulse Rate 81 Respiratory Rate 18 16 Blood Pressure 138/100 H 135/64 Pulse Oximetry 95 Oxygen Delivery Method Room Air Room Air BMI result Body Mass Index 34.4 Const General: cooperative, healthy appearing, comfortable, no acute distress, well developed, alert, awake and Physically active Orientation/consciousness: oriented to person, oriented to place, oriented to time and patient oriented x3 HENMT Head: Yes normal to inspection, Yes No palpable skull fracture present, Yes normocephalic, Yes atraumatic and No abrasion Eyes General: appearance normal, both eyes and all related structures Neck Neck: Yes normal visual inspection, Yes full ROM, Yes no lymphadenopathy, Yes no meningeal signs, Yes trachea midline, Yes supple, No anterior neck swelling and No tender Chest Chest palpation & inspection: normal inspection of the chest and normal palpation of entire chest wall Resp Effort & Inspection: normal respiratory effort and able to speak in complete sentences Cardio Jugular venous distension: no JVD Heart sounds: S1 normal heart sound present and S2 normal heart sound present GI Inspection: Yes normal to inspection Palpation (GI): Soft to palpation, not firm, Tenderness to palpation present (GI) in the LLQ and in the LUQ, no guarding and not rigid General: No CVA tenderness and Yes no CVA tenderness Back/Spine/Pelvis Back: no CVA tenderness, No CVA tenderness and No back tenderness Skin General skin exam: no rashes or lesions noted, elasticity normal and turgor normal Neuro General: oriented to person, oriented to place, oriented to time, patient oriented x3, gait normal, tone normal, moves all extremities, Normal light touch and pain sensation, no meningeal signs, no focal motor deficits, CN's II-XI intact bilaterally and normal sensation to monofilament Extrem General: Yes normal to inspection and Yes full ROM Psych Appearance: grossly normal, well kempt and not disheveled Course Course Course Narrative: This is an RME: Additional HPI, ROS, PE not included below will be deferred to primary provider. This is a 38-year-old male presenting to the emergency department with complaints of left-sided abdominal pain, and diarrhea. Patient states that the abdominal pain started about 6 hours ago, endorsing loose stool for the last 3 days. No vomiting. No bloody or black stool. History of bleeding ulcers, ETOH use, denies daily use. No fevers or vomiting. Vital signs stable. Abdomen is diffusely tender throughout even to light palpation. Plan: Labs, would benefit from CT with IV contrast. Medical Decision Making Medical Decision Making MDM Narrative: 38-year-old male presents to ED for abdominal pain with diarrhea for 6 days. White count [address]6866, UA pending. Patient has significant family history of cardiac NM. Patient has family members under 50 with history of heart attacks. Due to this do EKG and troponin. Morphine ordered. Pepcid ordered 2:39am: Patient be admitted for small-bowel obstruction. Case discussed with Dr. Florez surgeon. 2nd troponin negative ( did not increase by 50%). Differential Diagnosis Differential Diagnoses: The differential diagnosis associated with the presentation includes (Appendicitis diverticulitis colitis cholecystitis GERD) Admission/Observation Consideration of admission/observation: Escalation of care including admission/observation considered Consult Healthcare Provider Management of the patient was discussed with: Caramel Coloring Operator (Dr. Florez) Lab Data MDM Lab Attestation statement: I reviewed the patient's lab results. 10/04/23 11:48 10/04/23 11:48 Labs: Lab Results 10/04/23 10/04/23 10/04/23 Range/Units 11:48 20:47 22:09 WBC 17.0 H (4.8-10.8) X10*3/uL RBC 5.87 H (4.60-5.80) X10*6/uL Hgb 17.6 (14.0-18.0) g/dl Hct 51.0 (42.0-52.0) % MCV 86.9 (80.0-98.0) fL MCH 30.0 (27.0-33.0) pg MCHC 34.5 (31.0-36.0) g/dl RDW 11.8 (11.0-16.0) % Plt Count 318 (160-400) X10*3/uL MPV 10.5 (9.4-12.4) fL Immature Gran % (Auto) 0.4 (0.0-0.4) % Neut % (Auto) 67.4 (45-73) % Lymph % (Auto) 23.5 (20-40) % [place] % (Auto) 7.8 (2-11) % Eos % (Auto) 0.6 (0-4) % Baso % (Auto) 0.3 (0-2) % Lymph # (Auto) 4.0 (1.2-4.9) X10*3/uL [place] # (Auto) 1.3 H (0.1-1.2) X10*3/uL Eos # (Auto) 0.1 (0.0-0.4) X10*3/uL Baso # (Auto) 0.1 (0.0-0.2) X10*3/uL Abs Immat Gran (auto) 0.07 H (0.00-0.03) X10*3/uL Absolute Neuts (auto) 11.5 H (2.0-8.3) x10*3/uL Absolute Nucleated RBC 0.000 (0.0-0.012) X10*3/uL Nucleated RBC % (auto) 0.0 (0.0-0.2) /100WBC Sodium 135 (135-145) mmol/L Potassium 4.3 (3.3-5.1) mmol/L Chloride 105 (96-108) mmol/L Carbon Dioxide 19 L (22-29) mmol/L Anion Gap 15 (12-20) BUN 24 H (9-16) mg/dL Creatinine 1.06 (0.5-1.4) mg/dL Estim Creat Clear Calc 114.4 Estimated GFR > 60 Random Glucose 233 H (60-115) mg/dL Calcium 10.3 H D (8.4-10.2) mg/dL Total Bilirubin 0.6 (0.0-1.0) mg/dL AST 12 (5-37) U/L ALT 16 (0-40) U/L Alkaline Phosphatase 115 (39-117) U/L Troponin I High Sens 51.8 H (<3.5-35.0) ng/L Total Protein 9.0 H (6.5-8.0) g/dL Albumin 4.8 (3.5-5.0) g/dL Lipase 26 (8-78) U/L Urine Color Yellow Urine Appearance Clear Urine pH 5.5 (5.0-9.0) Ur Specific [place] >= 1.030 H (1.005-1.025) Urine Protein Trace (Neg-Trace) mg/dL Urine Glucose (UA) 250 H (Negative) mg/dL Urine Ketones Negative (Negative) mg/dL Urine Blood Negative (Negative) Urine Nitrite Negative (Negative) Ur Leukocyte Esterase Negative (Negative) Urine Opiates Screen Not Detected (Not Detect) Urine Fentanyl Screen Not Detected (Not Detect) Ur Barbiturates Screen Not Detected (Not Detect) Ur Phencyclidine Scrn Not Detected (Not Detect) Ur Amphetamines Screen POSITIVE H (Not Detect) U Benzodiazepines Scrn Not Detected (Not Detect) Urine Cocaine Screen POSITIVE H (Not Detect) U Marijuana (THC) Screen POSITIVE H (Not Detect) Ethyl Alcohol < 10 mg/dL C. difficile Tox B Gene (Negative) Influenza Type A (PCR) (Negative) Influenza Type B (PCR) (Negative) RSV RNA Qual (PCR) (Negative) SARS-CoV-2 RNA (RT-PCR) (Negative) 10/04/23 10/05/23 Range/Units 23:10 01:15 WBC (4.8-10.8) X10*3/uL RBC (4.60-5.80) X10*6/uL Hgb (14.0-18.0) g/dl Hct (42.0-52.0) % MCV (80.0-98.0) fL MCH (27.0-33.0) pg MCHC (31.0-36.0) g/dl RDW (11.0-16.0) % Plt Count (160-400) X10*3/uL MPV (9.4-12.4) fL Immature Gran % (Auto) (0.0-0.4) % Neut % (Auto) (45-73) % Lymph % (Auto) (20-40) % [place] % (Auto) (2-11) % Eos % (Auto) (0-4) % Baso % (Auto) (0-2) % Lymph # (Auto) (1.2-4.9) X10*3/uL [place] # (Auto) (0.1-1.2) X10*3/uL Eos # (Auto) (0.0-0.4) X10*3/uL Baso # (Auto) (0.0-0.2) X10*3/uL Abs Immat Gran (auto) (0.00-0.03) X10*3/uL Absolute Neuts (auto) (2.0-8.3) x10*3/uL Absolute Nucleated RBC (0.0-0.012) X10*3/uL Nucleated RBC % (auto) (0.0-0.2) /100WBC Sodium (135-145) mmol/L Potassium (3.3-5.1) mmol/L Chloride (96-108) mmol/L Carbon Dioxide (22-29) mmol/L Anion Gap (12-20) BUN (9-16) mg/dL Creatinine (0.5-1.4) mg/dL Estim Creat Clear Calc Estimated GFR Random Glucose (60-115) mg/dL Calcium (8.4-10.2) mg/dL Total Bilirubin (0.0-1.0) mg/dL AST (5-37) U/L ALT (0-40) U/L Alkaline Phosphatase (39-117) U/L Troponin I High Sens 33.0 (<3.5-35.0) ng/L Total Protein (6.5-8.0) g/dL Albumin (3.5-5.0) g/dL Lipase (8-78) U/L Urine Color Urine Appearance Urine pH (5.0-9.0) Ur Specific [place] (1.005-1.025) Urine Protein (Neg-Trace) mg/dL Urine Glucose (UA) (Negative) mg/dL Urine Ketones (Negative) mg/dL Urine Blood (Negative) Urine Nitrite (Negative) Ur Leukocyte Esterase (Negative) Urine Opiates Screen (Not Detect) Urine Fentanyl Screen (Not Detect) Ur Barbiturates Screen (Not Detect) Ur Phencyclidine Scrn (Not Detect) Ur Amphetamines Screen (Not Detect) U Benzodiazepines Scrn (Not Detect) Urine Cocaine Screen (Not Detect) U Marijuana (THC) Screen (Not Detect) Ethyl Alcohol mg/dL C. difficile Tox B Gene NEGATIVE (Negative) Influenza Type A (PCR) NEGATIVE (Negative) Influenza Type B (PCR) NEGATIVE (Negative) RSV RNA Qual (PCR) NEGATIVE (Negative) SARS-CoV-2 RNA (RT-PCR) NEGATIVE (Negative) Independent Interpretation I performed an independent interpretation of an: EKG (Normal sinus rhythm. Rate ) and CT Scan Radiology Impression Discussion of test interpretation with radiology: I have reviewed the radiologist's reading. Independent Historian Clinical information obtained from an independent historian. History obtained from or confirmed by: Other (Patient) External Record Review External record reviewed: Other (Prior visits) Medications Administered Generic Name Dose Route Start Last Admin Trade Name Freq PRN Reason Stop Dose Admin Enoxaparin Sodium 40 mg 10/05/23 03:00 10/05/23 03:02 Enoxaparin Sodium 40 Mg/0.4 Ml Syringe SUBCUT Not Given DAILY MARY Hydromorphone HCl 0.5 mg 10/05/23 02:17 10/05/23 11:11 Hydromorphone Hcl 0.5 Mg/0.5 Ml Syringe IVPUSH 0.5 mg Q3H PRN Administration Pain, Severe (Pain Scale 7-10) Protocol Acetaminophen 1,000 mg in 100 mls @ 400 mls/hr 10/05/23 03:00 10/05/23 10:32 Ofirmev IV 10/05/23 21:14 Infused Q6H MARY Infusion Dextrose/Lactated Ringer's 1,000 mls @ 125 mls/hr 10/05/23 02:30 10/05/23 03:16 D5lr IVCONT 125 mls/hr .Q8H MARY Administration Ondansetron HCl 4 mg 10/05/23 02:17 10/05/23 08:11 Ondansetron Hcl 4 Mg/2 Ml Vial IVPUSH 4 mg QID PRN Administration Nausea Sodium Chloride 3 ml 10/05/23 08:00 10/05/23 10:07 0.9 % Sodium Chloride Flush 3 Ml Syringe IVFLUSH 3 ml QSHIFT MARY Administration Discontinued Medications Generic Name Dose Route Start Last Admin Trade Name Freq PRN Reason Stop Dose Admin Famotidine 20 mg 10/04/23 21:46 10/04/23 22:13 Famotidine/Pf 20 Mg/2 Ml Vial IVPUSH 10/04/23 21:47 20 mg ONCE ONE Administration Sodium Chloride 1,000 mls @ 999 mls/hr 10/04/23 22:09 10/05/23 00:41 Ns IV 10/04/23 23:09 Infused .Q1H1M STA Infusion Iohexol 85 ml 10/04/23 20:17 10/04/23 20:17 Iohexol 350 Mg/Ml 100 Ml Infus..Btl IV 10/04/23 20:18 85 ml ONCE ONE Administration Morphine Sulfate 4 mg 10/04/23 20:31 10/04/23 20:45 Morphine Sulfate 4 Mg/Ml Cartridge IVPUSH 10/04/23 20:32 4 mg ONCE ONE Administration Protocol Morphine Sulfate 4 mg 10/04/23 21:30 10/04/23 22:13 Morphine Sulfate 4 Mg/Ml Cartridge IVPUSH 10/04/23 21:31 4 mg ONCE ONE Administration Protocol Critical Care Time Critical Care Time Critical Care Time: Yes Total Critical Care Time: 60 Attestation: Small bowel obstruction. SPoke with Dr. Florez for consultation and admission. Patient admitted. Morphine ordered. Patient having NG tube placed by nurse Discharge Plan Discharge Clinical Impression: SBO (small bowel obstruction) Patient Disposition: Admitted As Inpatient
[2023-10-04 11:53] LABS: MANUAL DIFF FLAG NO
[2023-10-04 12:06] LABS: Basophils Absolute Auto 0.1 X10*3/uL (0.0-0.2); Basophils Percent Auto 0.3 % (0-2); Eosinophils Absolute Auto 0.1 X10*3/uL (0.0-0.4); Eosinophils Percent Auto 0.6 % (0-4); Hemoglobin 17.6 g/dl (14.0-18.0); Imm Gran Abs Auto 0.07 X10*3/uL (0.00-0.03); Imm Gran Pct Auto 0.4 % (0.0-0.4); Lymphocytes Percent Auto 23.5 % (20-40); Mean Corpuscular HGB Conc 34.5 g/dl (31.0-36.0); Mean Corpuscular Volume 86.9 fL (80.0-98.0); Mean Platelet Volume 10.5 fL (9.4-12.4); Monocytes Absolute Auto 1.3 X10*3/uL (0.1-1.2); Monocytes Percent Auto 7.8 % (2-11); Neutrophils Absolute Auto 11.5 x10*3/uL (2.0-8.3); Neutrophils Percent Auto 67.4 % (45-73); Platelet Count 318 X10*3/uL (160-400); Red Blood Count 5.87 X10*6/uL (4.60-5.80); Red Cell Distribution Width 11.8 % (11.0-16.0)
[2023-10-04 12:11] LABS: Alanine Aminotransferase 16 U/L (0-40); Albumin Level 4.8 g/dL (3.5-5.0); Alkaline Phosphatase 115 U/L (39-117); Anion Gap 15 (12-20); Aspartate Amino Transferase 12 U/L (5-37); Bilirubin Total 0.6 mg/dL (0.0-1.0); Blood Urea Nitrogen 24 mg/dL (9-16); Calcium 10.3 mg/dL (8.4-10.2); Carbon Dioxide 19 mmol/L (22-29); Chloride 105 mmol/L (96-108); Creatinine Clr Calc Pharmacy 114.4; Estimated Glomerular Filt Rate > 60; Ethanol < 10 mg/dL; Glucose Random 233 mg/dL (60-115); Lipase 26 U/L (8-78); Potassium 4.3 mmol/L (3.3-5.1); Sodium 135 mmol/L (135-145)
[2023-10-04 19:57] VITALS: BP 138/100; RESP 18; TEMP 36.1
[2023-10-04] MEDS: iohexoL 350 MG/ML 100 ML INFUS..BTL 85 ML IV (20:17)
[2023-10-04] MEDS: Morphine Sulfate 4 MG/ML CARTRIDGE IVPUSH ×2 (20:45→22:13)
[2023-10-04 21:01] LABS: Amphetamine Screen Urine POSITIVE (Not Detect); Barbiturates, Urine Not Detected (Not Detect); Benzodiazepines Screen Urine Not Detected (Not Detect); Cannabinoid Screen Urine POSITIVE (Not Detect); Cocaine Screen Urine POSITIVE (Not Detect); Fentanyl, urine Not Detected (Not Detect); Opiate Screen Urine Not Detected (Not Detect); Phencyclidine Screen Urine Not Detected (Not Detect)
[2023-10-04 21:13] LABS: Appearance Urine Clear; Color Urine Yellow; Glucose Urine UA 250 mg/dL (Negative); Leukocyte Esterase Urine Negative (Negative); Nitrite Urine Negative (Negative); PH 5.5 (5.0-9.0); Specific Gravity - Urine >= 1.030 (1.005-1.025); Urine Blood Negative (Negative); Urine Ketones Negative (Negative); Urine Protein Trace mg/dL (Neg-Trace)
--- NOTE | 2023-10-04 21:30 | ECG_ITS ---
Test Reason : ABD PAIN Blood Pressure : / mmHG Vent. Rate : 088 BPM Atrial Rate : 088 BPM P-R Int : 170 ms QRS Dur : 090 ms QT Int : 364 ms P-R-T Axes : 037 059 029 degrees QTc Int : 440 ms Normal sinus rhythm Normal ECG When compared with ECG of 25-NOV-2022 14:37, Premature atrial complexes are no longer Present Left posterior fascicular block is no longer Present Referred By: Sav Rebolledo Electronically Signed By:ECHO CHAUDHARI MD
[2023-10-04] MEDS: Famotidine/PF 20 MG/2 ML VIAL IVPUSH (22:13)
[2023-10-04] MEDS: 0.9 % Sodium Chloride 1,000 ML 999 ML IV (22:13)
[2023-10-04 22:33] LABS: Troponin-I High Sensitivity 51.8 ng/L (<3.5-35.0)
[2023-10-04 23:55] LABS: Influenza A PCR NEGATIVE (Negative); Influenza B PCR NEGATIVE (Negative); Resp Syncy Virus RNA Qual PCR NEGATIVE (Negative); SARS COV2 PCR INHOUSE NEGATIVE (Negative)
[2023-10-05] VITALS (7 sets, daily range): BP systolic 118–165; BP diastolic 64–81; PULSE 56–81; RESP 16–20; TEMP 36.3–36.7; O2SAT 94–96; BMI 39.3
[2023-10-05 00:10] LABS: CDiff Gene PCR NEGATIVE (Negative)
--- NOTE | 2023-10-05 00:39 | PC.NURSE ---
late entry- assumed care of pt. pt resting in stretcher, no acute distress noted. pt reports 3/10 lower abdominal pain at this time, reports pain medications had helped.
[2023-10-05] MEDS: ondansetron HCL 4 MG/2 ML VIAL IVPUSH ×2 (03:01→08:11)
[2023-10-05] MEDS: HYDROmorphone HCl 0.5 MG/0.5 ML SYRINGE IVPUSH ×6 (03:01→20:59)
[2023-10-05] MEDS: Acetaminophen 1,000 MG/100 ML PIGGYBACK 400 MG IV ×4 (03:02→20:50)
[2023-10-05] MEDS: Dextrose 5 % and Lactated Ring 1,000 ML 125 ML IVCONT ×3 (03:16→18:27)
--- NOTE | 2023-10-05 06:06 | PC.NURSE ---
0300- NG tube placed, xray at bedside to confirm placement 0316- D5LR begun per provider order ([place] started). vital signs updated. 021- xrays sent to provider via [place] Text to confirm placement of NG tube 0327- low intermittent suction begun per provider order.
--- NOTE | 2023-10-05 07:52 | P.HPGS_ITS ---
History of Present Illness History of Present Illness Date of Service: 10/05/23 Chief complaint: Small bowel obstruction Narrative: Boston Rubin is a 38 year old male presenting with complaints of abdominal pain located mainly in the lower abdomen. This began approximately 4 days prior to admission increased in severity over the next several days. He reports nausea without vomiting. He has also had multiple episodes of loose/watery diarrhea. He is uncertain if he had any fever or chills. He denies any sick contacts or recent travel. He subsequently presented to the emergency department for further evaluation. He was noted to be diffusely tender and distended. Workup with CT abdomen and pelvis revealed in distended stomach and small bowel with a transition point in the distal small bowel. Findings were suggestive of a partial small-bowel obstruction. A nasogastric tube was placed in the emergency department. this morning he continues to note some abdominal distention and tenderness. Review of Systems Review of Systems: Yes all other systems are reviewed and are negative Constitutional: Constitutional: Denies chills, Denies fever(s), Denies headache(s), Denies poor appetite and Denies weakness ENT: Denies headache(s) Cardiovascular: Cardiovascular: Denies chest pain, Denies irregular heart rhythm, Denies palpitations and Denies dyspnea Respiratory: Respiratory: Denies cough, Denies excessive phlegm production and Denies dyspnea Gastrointestinal: Gastrointestinal: Reports abdominal pain, Reports bloating, Reports change in bowel habits, Denies constipation, Denies heartburn, Reports diarrhea, Reports nausea and Denies vomiting Genitourinary: Genitourinary: Denies difficulty urinating and Denies urinary frequency Musculoskeletal: Musculoskeletal: Denies back pain, Denies muscle weakness and Denies numbness Integumentary/Breasts: Skin/Breast: Denies changing lesions and Denies unusual bruising Neurologic: Denies headache(s), Denies numbness, Denies paresthesias and Denies weakness Psychiatric: Psychiatric: Denies anxiety and Denies depression Endocrine: Endocrine: Denies palpitations Hematologic/Lymphatic: Hematologic/Lymphatic: Denies lymphadenopathy PMFSH Past Medical History Medical History Diabetes type 2, controlled Social History Social History Alcohol intake: current Alcohol intake frequency: 3 or more drinks per day Alcohol type: beer and hard liquor Patient Tobacco Use Status: Never used Tobacco Smoked in Last 30 Days: Yes Substance Use Type: Crack/Cocaine Advance Directives: No Advance Directives Information Provided: No Nutrition Risks: No Nutritional Risk Meds Allergies Allergy/AdvReac Type Severity Reaction Status Date / Time amoxicillin [AMOXICILLIN] Allergy Unknown ANAPHYLAXIS Verified 11/25/22 14:09 bee pollen [BEE STINGS] Allergy Unknown ANAPHYLAXIS Verified 11/25/22 14:09 tizanidine Allergy Hives Verified 11/25/22 14:09 Active Medications: Current Medications Enoxaparin Sodium (Enoxaparin Sodium 40 Mg/0.4 Ml Syringe) 40 mg SUBCUT DAILY [facility] Last Admin: 10/05/23 03:02 Dose: Not Given Hydromorphone HCl (Hydromorphone Hcl 0.5 Mg/0.5 Ml Syringe) 0.5 mg IVPUSH Q3H PRN; Protocol PRN Reason: Pain, Severe (Pain Scale 7-10) Last Admin: 10/05/23 03:01 Dose: 0.5 mg Acetaminophen (Ofirmev) 1,000 mg in 100 mls @ 400 mls/hr IV Q6H [facility] Stop: 10/05/23 21:14 Last Infusion: 10/05/23 03:17 Dose: Infused Dextrose/Lactated Ringer's (D5lr) 1,000 mls @ 125 mls/hr IVCONT .Q8H [facility] Last Admin: 10/05/23 03:16 Dose: 125 mls/hr Ondansetron HCl (Ondansetron Hcl 4 Mg/2 Ml Vial) 4 mg IVPUSH QID PRN PRN Reason: Nausea Last Admin: 10/05/23 03:01 Dose: 4 mg Sodium Chloride (0.9 % Sodium Chloride Flush 3 Ml Syringe) 3 [facility] Zolpidem Tartrate (Zolpidem Tartrate 5 Mg Tablet) 5 mg PO BEDTIME PRN PRN Reason: Insomnia Home Medications ?Medication ?Instructions ?Recorded ?Confirmed ?Last Taken ?Type omeprazole 20 mg capsule,delayed 20 mg PO DAILY PRN Acid Reflux 10/05/23 10/05/23 10/03/23 History release Physical Exam Vital Signs: Vital Signs: Last Vital Signs Temp 98.0 F 10/05/23 03:16 Pulse 81 10/05/23 03:16 Resp 17 10/05/23 03:16 BP 137/80 10/05/23 03:16 Pulse Ox 94 10/05/23 03:16 O2 Del Method Room Air 10/05/23 03:16 BMI result Body Mass Index 34.4 Const: General: cooperative and no acute distress Nutritional Appearance: well nourished Orientation/consciousness: patient oriented x3 Limitations: no limitations HEENT: Head: Yes normocephalic and Yes atraumatic Ears: hearing grossly normal bilaterally Resp: Effort & Inspection: normal respiratory effort, no audible wheezes, no cough and no respiratory distress Cardio: Jugular venous distension: no JVD GI: Inspection: Yes normal to inspection Palpation (GI): Soft to palpation, Tenderness to palpation present (GI), no guarding and not rigid Percussion: Yes tympanic to percussion Auscultation: Absent bowel sounds Rectal Exam - Male: Yes deferred Skin: Other: Warm, dry, no rash Neuro: General: patient oriented x3 Extrem: General: Yes no clubbing, cyanosis or edema Results Results Labs: Short CBC 10/04/23 Range/Units 11:48 WBC 17.0 H (4.8-10.8) X10*3/uL Hgb 17.6 (14.0-18.0) g/dl Hct 51.0 (42.0-52.0) % Plt Count 318 (160-400) X10*3/uL BMP 10/04/23 11:48 Sodium 135 Potassium 4.3 Chloride 105 Carbon Dioxide 19 L BUN 24 H Creatinine 1.06 Calcium 10.3 H D Liver Function 10/04/23 Range/Units 11:48 Total Bilirubin 0.6 (0.0-1.0) mg/dL AST 12 (5-37) U/L ALT 16 (0-40) U/L Alkaline Phosphatase 115 (39-117) U/L Albumin 4.8 (3.5-5.0) g/dL Urine 10/04/23 Range/Units 20:47 Urine Color Yellow Urine Appearance Clear Urine pH 5.5 (5.0-9.0) Ur Specific [place] >= 1.030 H (1.005-1.025) Urine Protein Trace (Neg-Trace) mg/dL Urine Glucose (UA) 250 H (Negative) mg/dL Assessment and Plan (1) SBO (small bowel obstruction): Status: Acute Plan 38-year-old male patient with no prior surgical history presenting with abdominal distension and diarrhea. Workup with CT abdomen and pelvis was suggestive of a partial small-bowel obstruction. A nasogastric tube has been placed due to gastric distension. This will be placed at low intermittent suction. If there is no improvement after [address] with oral contrast may be required. Hospitalist consultation for management of diabetes. Quality Stroke Does the patient have a stroke diagnosis?: No VTE Prior VTE?: No VTE Risk Level:: Surgical - moderate VTE Device Contraindication: N/A - Device Ordered VTE Drug Contraindication: N/A - Med Ordered Procedures Date of Service Date of Service: 10/05/23
--- NOTE | 2023-10-05 09:01 | PHA.MEDREC ---
Pharmacy Consult ? Medication Reconciliation Pharmacy has completed the medication reconciliation. Spoke to patient and confirmed medication list.
[2023-10-05] MEDS: 0.9 % Sodium Chloride Flush 3 ML SYRINGE IVFLUSH (10:07)
[2023-10-05 11:20] LABS: Adenovirus F 40/41 Not Detected (Not Detect.); Astrovirus Not Detected (Not Detect.); Campylobacter Not Detected (Not Detect.); Cryptosporidium Not Detected (Not Detect.); Cyclospora cayetanensis Not Detected (Not Detect.); E. coli EAEC Not Detected (Not Detect.); E. coli EPEC Not Detected (Not Detect.); E. coli ETEC Not Detected (Not Detect.); E. coli STEC Not Detected (Not Detect.); Entamoeba histolytica Not Detected (Not Detect.); Giardia lamblia Not Detected (Not Detect.); Plesiomonas shigelloides Not Detected (Not Detect.); Rotavirus A Not Detected (Not Detect.); Salmonella Not Detected (Not Detect.); Sapovirus Not Detected (Not Detect.); Shigella sp./EIEC Not Detected (Not Detect.); Vibrio Not Detected (Not Detect.); Vibrio Cholerae Not Detected (Not Detect.); Yersinia enterocolitica Not Detected (Not Detect.)
--- NOTE | 2023-10-05 11:56 | MHC.IC ---
PT POSITIVE FOR [facility]OVIR[facility]. STRICT CONTACT PRECAUTIONS AND HAND WASHING W SOAP AND WATER. CLEAN SURFACES WITH BLEACH.
[2023-10-05] MEDS: Nicotine 21 MG PATCH.TD24 TRANSDERMA (14:32)
--- NOTE | 2023-10-05 14:39 | P.CONIM_ITS ---
History of Present Illness Data of Consult Service Date: 10/05/23 Requesting physician: Graham Florez Primary Care Provider: None Physician HPI Reason for consult: diabetes This is a 38-year-old male who presented to the emergency department with abdominal pain and diarrhea, found to have concern for small-bowel obstruction and admitted to the surgical service. An NG-tube was placed with improvement of abdominal distension. He continues to report generalized abdominal discomfort. The hospitalists were asked to see in consultation due to history of diabetes. Patient reports a history of diabetes which was diagnosed approximately 6 years ago. He has been noncompliant with his metformin as he states that his PCP told him his blood sugars have gotten better. He has not seen his PCP in the past 2 years. He does not check his blood sugar or follow a diabetic diet. Review of Systems 2 Review of Systems: Yes all other systems are reviewed and are negative Constitutional: Constitutional: Denies chills and Denies fever(s) Cardiovascular: Cardiovascular: Denies chest pain and Denies palpitations Gastrointestinal: Gastrointestinal: Reports abdominal pain, Reports diarrhea and Reports nausea Endocrine: Endocrine: Denies palpitations [facility] Medical History (Updated 10/05/23 @ 14:51 by RICHARD Garcia) Diabetes type 2, controlled Family History (Updated 10/05/23 @ 14:43 by RICHARD Garcia) Other CAD (coronary artery disease) Social History (Updated 10/05/23 @ 14:43 by RICHARD Garcia) Alcohol intake: current Alcohol intake frequency: 3 or more drinks per day Alcohol type: beer and hard liquor Patient Tobacco Use Status: Current everyday Tobacco user Substance Use Type: Crack/Cocaine Meds Allergies Allergy/AdvReac Type Severity Reaction Status Date / Time amoxicillin [AMOXICILLIN] Allergy Unknown ANAPHYLAXIS Verified 11/25/22 14:09 bee pollen [BEE STINGS] Allergy Unknown ANAPHYLAXIS Verified 11/25/22 14:09 tizanidine Allergy Hives Verified 11/25/22 14:09 Active Medications: Current Medications Enoxaparin Sodium (Enoxaparin Sodium 40 Mg/0.4 Ml Syringe) 40 mg SUBCUT DAILY [facility] Last Admin: 10/05/23 03:02 Dose: Not Given Hydromorphone HCl (Hydromorphone Hcl 0.5 Mg/0.5 Ml Syringe) 0.5 mg IVPUSH Q3H PRN; Protocol PRN Reason: Pain, Severe (Pain Scale 7-10) Last Admin: 10/05/23 14:33 Dose: 0.5 mg Acetaminophen (Ofirmev) 1,000 mg in 100 mls @ 400 mls/hr IV Q6H [facility] Stop: 10/05/23 21:14 Last Admin: 10/05/23 14:33 Dose: 400 mls/hr Dextrose/Lactated Ringer's (D5lr) 1,000 mls @ 125 mls/hr IVCONT .Q8H [facility] Last Admin: 10/05/23 11:56 Dose: 125 mls/hr Nicotine (Nicotine 21 Mg Patch.Td24) 21 mg TRANSDERMA DAILY [facility] Last Admin: 10/05/23 14:32 Dose: 21 mg Ondansetron HCl (Ondansetron Hcl 4 Mg/2 Ml Vial) 4 mg IVPUSH QID PRN PRN Reason: Nausea Last Admin: 10/05/23 08:11 Dose: 4 mg Sodium Chloride (0.9 % Sodium Chloride Flush 3 Ml Syringe) 3 ml IVFLUSH QSHIFT [facility] Last Admin: 10/05/23 10:07 Dose: 3 ml Zolpidem Tartrate (Zolpidem Tartrate 5 Mg Tablet) 5 mg PO BEDTIME PRN PRN Reason: Insomnia Home Medications ?Medication ?Instructions ?Recorded ?Confirmed ?Last Taken ?Type omeprazole 20 mg capsule,delayed 20 mg PO DAILY PRN Acid Reflux 10/05/23 10/05/23 10/03/23 History release Physical Exam 2 Vital Signs and Narrative: Vital Signs: Last Vital Signs Temp 97.5 F 10/05/23 14:11 Pulse 65 10/05/23 14:11 Resp 20 10/05/23 14:11 BP 154/71 H 10/05/23 14:11 Pulse Ox 94 10/05/23 14:11 O2 Del Method Room Air 10/05/23 14:11 BMI result Body Mass Index 34.4 Const: General: cooperative, comfortable, alert and awake Nutritional Appearance: overweight Orientation/consciousness: patient oriented x3 Resp: Effort & Inspection: normal respiratory effort, able to speak in complete sentences, no respiratory distress and no use of accessory muscles Cardio: Rate: regular rate GI: Other: hypoactive BS, soft, generalized pain to palpation; no guarding Neuro: General: patient oriented x3, moves all extremities and CN's II-XI intact bilaterally Extrem: General: Yes no pedal edema Results Labs 10/04/23 11:48 10/04/23 11:48 Labs: Laboratory Results - last 24 hr 10/04/23 10/04/23 10/04/23 20:47 22:09 23:10 Troponin I High Sens 51.8 H Urine Color Yellow Urine Appearance Clear Urine pH 5.5 Ur Specific [place] >= 1.030 H Urine Protein Trace Urine Glucose (UA) 250 H Urine Ketones Negative Urine Blood Negative Urine Nitrite Negative Ur Leukocyte Esterase Negative Stl C. cayetanensis PCR Not Detected Stool Rotavirus A PCR Not Detected Stl Adenov F 40/41 PCR Not Detected Stool Astrovirus (PCR) Not Detected Stool Campylobacter PCR Not Detected Stool Cryptosporidium PCR Not Detected Stl Sh Tox Pr E STEC PCR Not Detected Stool E coli O157 PCR Not applicable Stl Enterotoxigenic E PCR Not Detected Stool EPEC (PCR) Not Detected Stool EAEC (PCR) Not Detected Stl E. histolytica PCR Not Detected Stool Giardia Lamblia PCR Not Detected Stl P. shigelloides PCR Not Detected Stool Salmonella PCR Not Detected Stool Sapovirus (PCR) Not Detected Stl Shigella/EIEC PCR Not Detected St Y.enterocolitica PCR Not Detected Stool Vibrio (PCR) Not Detected Stl Vibrio cholerae PCR Not Detected Stl Norovirus GI/GII PCR See Comment Urine Opiates Screen Not Detected Urine Fentanyl Screen Not Detected Ur Barbiturates Screen Not Detected Ur Phencyclidine Scrn Not Detected Ur Amphetamines Screen POSITIVE H U Benzodiazepines Scrn Not Detected Urine Cocaine Screen POSITIVE H U Marijuana (THC) Screen POSITIVE H C. difficile Tox B Gene NEGATIVE Influenza Type A (PCR) NEGATIVE Influenza Type B (PCR) NEGATIVE RSV RNA Qual (PCR) NEGATIVE SARS-CoV-2 RNA (RT-PCR) NEGATIVE 10/05/23 01:15 Troponin I High Sens 33.0 Urine Color Urine Appearance Urine pH Ur Specific [place] Urine Protein Urine Glucose (UA) Urine Ketones Urine Blood Urine Nitrite Ur Leukocyte Esterase Stl C. cayetanensis PCR Stool Rotavirus A PCR Stl Adenov F 40/41 PCR Stool Astrovirus (PCR) Stool Campylobacter PCR Stool Cryptosporidium PCR Stl Sh Tox Pr E STEC PCR Stool E coli O157 PCR Stl Enterotoxigenic E PCR Stool EPEC (PCR) Stool EAEC (PCR) Stl E. histolytica PCR Stool Giardia Lamblia PCR Stl P. shigelloides PCR Stool Salmonella PCR Stool Sapovirus (PCR) Stl Shigella/EIEC PCR St Y.enterocolitica PCR Stool Vibrio (PCR) Stl Vibrio cholerae PCR Stl Norovirus GI/GII PCR Urine Opiates Screen Urine Fentanyl Screen Ur Barbiturates Screen Ur Phencyclidine Scrn Ur Amphetamines Screen U Benzodiazepines Scrn Urine Cocaine Screen U Marijuana (THC) Screen C. difficile Tox B Gene Influenza Type A (PCR) Influenza Type B (PCR) RSV RNA Qual (PCR) SARS-CoV-2 RNA (RT-PCR) Imaging Radiologist's Impressions: Impressions Abdomen/Pelvis CT 10/04/23 20:39 IMPRESSION: 1. Small bowel obstruction with transition zone in the right lower quadrant. A definite obstructing lesion is not seen. 2. Incidental note made of a thickened bladder wall, colonic diverticulosis without diverticulitis and a small amount of free pelvic fluid. Fleischner guidelines were followed. Chest X-Ray 10/05/23 03:00 IMPRESSION: Lung apices are not imaged. 1. Gastric tube extends below the diaphragm into the left upper quadrant. 2. Low lung volumes with bibasilar atelectasis. Assessment and Plan (1) SBO (small bowel obstruction): Status: Acute (2) Diabetes type 2, controlled: Status: Acute Plan This is a 38-year-old male with history of type 2 diabetes, tobacco dependence who presented to the emergency department with 4 day history of abdominal pain and diarrhea found to have partial small-bowel obstruction, admitted to the surgical service and NG tube placed Partial small-bowel obstruction s/p NGT placement management as per surgery GI panel + for norovirus but analyzer issue causing false positives and therefore needs to be confirmed by outside lab T2DM noncompliant with metformin for several years check Hba1c follow POCs, if sugars are elevated can cover with SSI tobacco dependence smoking cessation advices NRT dvt ppx - lovenox Thank you for allowing us to participate in the care of this patient. We will follow along with you
--- NOTE | 2023-10-05 16:42 | MHC.EDTECH ---
THIS PCT ASSUMED CARE OF PATIENT AT 1500 ,VITALS TAKEN AND PATIENT BELONINGS LIST DONE .
[2023-10-05 16:45] LABS: Glucose, Whole Blood 186 mg/dL (60-115)
[2023-10-05 21:15] LABS: Glucose, Whole Blood 144 mg/dL (60-115)
[2023-10-06] MEDS: HYDROmorphone HCl 0.5 MG/0.5 ML SYRINGE IVPUSH ×7 (00:31→22:08)
[2023-10-06] MEDS: Dextrose 5 % and Lactated Ring 1,000 ML 125 ML IVCONT ×3 (02:10→17:48)
[2023-10-06 03:35] VITALS: BP 168/90; PULSE 75; RESP 18; TEMP 36.6; O2SAT 95
[2023-10-06] MEDS: ondansetron HCL 4 MG/2 ML VIAL IVPUSH ×4 (04:07→22:08)
[2023-10-06] MEDS: Nicotine 21 MG PATCH.TD24 TRANSDERMA (07:27)
--- NOTE | 2023-10-06 07:27 | P.PNGS_ITS ---
Subjective Subjective Date of Service: 10/06/23 Interval history: continues to complain of abdominal pain mainly in the upper abdomen. No further BM since yesterday. NGT with clear output consistent with Ice/water. Physical Exam 2 Vital Signs: Vital Signs: Last Vital Signs Temp 97.8 F 10/06/23 03:35 Pulse 75 10/06/23 03:35 Resp 18 10/06/23 03:35 BP 168/90 H 10/06/23 03:35 Pulse Ox 95 10/06/23 03:35 O2 Del Method Room Air 10/06/23 03:35 BMI result Body Mass Index 39.3 Const: General: no acute distress Nutritional Appearance: well nourished Orientation/consciousness: patient oriented x3 Limitations: no limitations HEENT: Other: NGT in place Resp: Effort & Inspection: normal respiratory effort GI: Other: distended, tender to palpation in the RUQ and LUQ. No rebound or guarding. Skin: Other: warm, dry and no rash Neuro: General: patient oriented x3 Extrem: General: Yes no clubbing, cyanosis or edema Objective Data Active Medications Dextrose (Dextrose 50 % 25 Gm/50 Ml Syringe) 25 gm IVPUSH Q15M PRN; Protocol PRN Reason: per Hypoglycemia Standing Ord. Enoxaparin Sodium (Enoxaparin Sodium 40 Mg/0.4 Ml Syringe) 40 mg SUBCUT DAILY [facility] Last Admin: 10/06/23 07:18 Dose: Not Given Documented By: PAULA Non-Admin Reason: Patient Refused Glucose (Glucose Gel 15 Gm Gel..Gram.) 15 gm PO Q15M PRN; Protocol PRN Reason: per Hypoglycemia Standing Ord. Hydromorphone HCl (Hydromorphone Hcl 0.5 Mg/0.5 Ml Syringe) 0.5 mg IVPUSH Q3H PRN; Protocol PRN Reason: Pain, Severe (Pain Scale 7-10) Last Admin: 10/06/23 04:07 Dose: 0.5 mg Documented By: CLINTON Dextrose/Lactated Ringer's (D5lr) 1,000 mls @ 125 mls/hr IVCONT .Q8H [facility] Last Admin: 10/06/23 02:10 Dose: 125 mls/hr Documented By: CLINTON Nicotine (Nicotine 21 Mg Patch.Td24) 21 mg TRANSDERMA DAILY [facility] Last Admin: 10/05/23 14:32 Dose: 21 mg Documented By: CLEMENTE Ondansetron HCl (Ondansetron Hcl 4 Mg/2 Ml Vial) 4 mg IVPUSH QID PRN PRN Reason: Nausea Last Admin: 10/06/23 04:07 Dose: 4 mg Documented By: CLINTON Sodium Chloride (0.9 % Sodium Chloride Flush 3 Ml Syringe) 3 ml IVFLUSH QSHIFT [facility] Last Admin: 10/06/23 07:06 Dose: Not Given Documented By: PAULA Non-Admin Reason: IV Running Zolpidem Tartrate (Zolpidem Tartrate 5 Mg Tablet) 5 mg PO BEDTIME PRN PRN Reason: Insomnia Labs 10/04/23 11:48 10/04/23 11:48 Labs: Laboratory Results - last 24 hr 10/04/23 10/05/23 10/05/23 23:10 16:41 21:10 POC Glucose 186 H 144 H Stl C. cayetanensis PCR Not Detected Stool Rotavirus A PCR Not Detected Stl Adenov F 40/41 PCR Not Detected Stool Astrovirus (PCR) Not Detected Stool Campylobacter PCR Not Detected Stool Cryptosporidium PCR Not Detected Stl Sh Tox Pr E STEC PCR Not Detected Stool E coli O157 PCR Not applicable Stl Enterotoxigenic E PCR Not Detected Stool EPEC (PCR) Not Detected Stool EAEC (PCR) Not Detected Stl E. histolytica PCR Not Detected Stool Giardia Lamblia PCR Not Detected Stl P. shigelloides PCR Not Detected Stool Salmonella PCR Not Detected Stool Sapovirus (PCR) Not Detected Stl Shigella/EIEC PCR Not Detected St Y.enterocolitica PCR Not Detected Stool Vibrio (PCR) Not Detected Stl Vibrio cholerae PCR Not Detected Stl Norovirus GI/GII PCR See Comment Procedures Date of Service Date of Service: 10/06/23 Progress Note: A&P Assessment and plan (1) SBO (small bowel obstruction): Status: Acute Plan HD #2 small bowel obstruction, partial with history of diarrhea. Awaiting Norovirus studies. Continues to report abdominal pain. NGT with decreased output, mainly water. Will check CT abdomen and pelvis with oral contrast today; if no obstruction, will remove NGT and start clears. Diabetes management as per Hospitalist team. Time Spent With Patient Time: Total time managing care of this patient today ____ minutes. Quality Stroke Does the patient have a stroke diagnosis?: No VTE Prior VTE?: No VTE Risk Level:: Surgical - moderate VTE Device Contraindication: N/A - Device Ordered VTE Drug Contraindication: N/A - Med Ordered
[2023-10-06 07:45] LABS: MANUAL DIFF FLAG NO
[2023-10-06 07:47] LABS: Basophils Percent Auto 0.2 % (0-2); Eosinophils Absolute Auto 0.1 X10*3/uL (0.0-0.4); Eosinophils Percent Auto 0.9 % (0-4); Hematocrit 42.1 % (42.0-52.0); Hemoglobin 14.8 g/dl (14.0-18.0); Imm Gran Abs Auto 0.02 X10*3/uL (0.00-0.03); Imm Gran Pct Auto 0.2 % (0.0-0.4); Lymphocytes Absolute Auto 2.9 X10*3/uL (1.2-4.9); Lymphocytes Percent Auto 32.2 % (20-40); Mean Corpuscular HGB Conc 35.2 g/dl (31.0-36.0); Mean Corpuscular Hemoglobin 30.1 pg (27.0-33.0); Mean Corpuscular Volume 85.7 fL (80.0-98.0); Monocytes Absolute Auto 0.7 X10*3/uL (0.1-1.2); Monocytes Percent Auto 7.8 % (2-11); Neutrophils Absolute Auto 5.2 x10*3/uL (2.0-8.3); Neutrophils Percent Auto 58.7 % (45-73); Platelet Count 233 X10*3/uL (160-400); Red Blood Count 4.91 X10*6/uL (4.60-5.80); Red Cell Distribution Width 11.6 % (11.0-16.0); White Blood Count 8.9 X10*3/uL (4.8-10.8)
[2023-10-06 08:00] VITALS: BP 172/90; PULSE 69; RESP 17; TEMP 36.3; O2SAT 94
[2023-10-06 08:08] LABS: Estimated Average Glucose 157 mg/dL; Hemoglobin A1c % 7.1 % (<6.0)
[2023-10-06 08:33] LABS: Anion Gap 17 (12-20); Blood Urea Nitrogen 12 mg/dL (9-16); Carbon Dioxide 26 mmol/L (22-29); Chloride 103 mmol/L (96-108); Creatinine Clr Calc Pharmacy 164.4; Estimated Glomerular Filt Rate > 60; Glucose Random 158 mg/dL (60-115); Potassium 3.5 mmol/L (3.3-5.1); Sodium 142 mmol/L (135-145)
--- NOTE | 2023-10-06 09:32 | PC.NURSE ---
0900 NGT disconnected from suction and oral contrast administered through NGT, NGT clamped until back from CT scan
[2023-10-06 09:46] LABS: Glucose, Whole Blood 175 mg/dL (60-115)
--- NOTE | 2023-10-06 11:22 | MHC.CM.PN ---
PT REPORTS HE LIVES WITH A ROOMMATE, HOWEVER THEY ARE MOVING OUT SOON HE DENIES USE OF DME OR SERVICES HE BELIEVES HE HAS MH FOR INSURANCE PT DOES NOT HAVE A PCP, LIST PROVIDED HE BELIEVES HE HAS A HCP NAMING HIS MOTHER HIS AGENT, COPY REQUESTED DCP: HOME NO SERVICES PT MAY NEED ASSISTANCE WITH TRANSPORT
--- NOTE | 2023-10-06 13:13 | PC.NURSE ---
[address] scan, per Dr. Florez pt does not have an obstruction and to remove NGT. NGT was removed at 1310, pt tolerated well and is started on a clear liquid diet
[2023-10-06] MEDS: iohexoL 350 MG/ML 100 ML INFUS..BTL IV (13:19)
[2023-10-06] MEDS: Barium Sulfate Oral (Berry) 450 ML ORAL.SUSP 900 ML PO (13:20)
--- NOTE | 2023-10-06 13:33 | HO.PM.IMPN ---
Subjective Subjective Date of Service: 10/06/23 Interval History: Seen and examined this morning Follow-up for partial small bowel obstruction Persistent abdominal pain, passing gas, no diarrhea Review of Systems Review of Systems: Yes all other systems are reviewed and are negative Constitutional Constitutional: Denies chills and Denies fever(s) Cardiovascular Cardiovascular: Denies chest pain Gastrointestinal Gastrointestinal: Reports abdominal pain Physical Exam Vital Signs: Vital Signs: Last Vital Signs Temp 97.4 F 10/06/23 08:00 Pulse 69 10/06/23 08:00 Resp 17 10/06/23 08:00 BP 172/90 H 10/06/23 08:00 Pulse Ox 94 10/06/23 08:00 O2 Del Method Room Air 10/06/23 08:00 BMI result Body Mass Index 39.3 Const: General: cooperative, comfortable, alert and awake Nutritional Appearance: overweight Orientation/consciousness: patient oriented x3 Resp: Effort & Inspection: normal respiratory effort, able to speak in complete sentences, no respiratory distress and no use of accessory muscles Cardio: Rate: regular rate GI: Other: hypoactive BS, soft, generalized pain to palpation; no guarding Neuro: General: patient oriented x3, moves all extremities and CN's II-XI intact bilaterally Extrem: General: Yes no pedal edema Objective Data Active Medications Enoxaparin Sodium (Enoxaparin Sodium 40 Mg/0.4 Ml Syringe) 40 mg SUBCUT DAILY [facility] Last Admin: 10/06/23 07:18 Dose: Not Given Documented By: PAULA Non-Admin Reason: Patient Refused Glucose (Glucose Gel 15 Gm Gel..Gram.) 15 gm PO Q15M PRN; Protocol PRN Reason: per Hypoglycemia Standing Ord. Hydromorphone HCl (Hydromorphone Hcl 0.5 Mg/0.5 Ml Syringe) 0.5 mg IVPUSH Q3H PRN; Protocol PRN Reason: Pain, Severe (Pain Scale 7-10) Last Admin: 10/06/23 11:06 Dose: 0.5 mg Documented By: PAULA Dextrose/Lactated Ringer's (D5lr) 1,000 mls @ 125 mls/hr IVCONT .Q8H REPLACED [facility] Last Admin: 10/06/23 10:15 Dose: 125 mls/hr Documented By: PAULA Dextrose (D10) 250 mls @ 750 mls/hr IV Q15M PRN PRN Reason: per Hypoglycemia Standing Ord. Nicotine (Nicotine 21 Mg Patch.Td24) 21 mg TRANSDERMA DAILY [facility] Last Admin: 10/06/23 07:27 Dose: 21 mg Documented By: PAULA Ondansetron HCl (Ondansetron Hcl 4 Mg/2 Ml Vial) 4 mg IVPUSH QID PRN PRN Reason: Nausea Last Admin: 10/06/23 11:06 Dose: 4 mg Documented By: PAULA Sodium Chloride (0.9 % Sodium Chloride Flush 3 Ml Syringe) 3 ml IVFLUSH QSHIFT REPLACED BY [facility] Last Admin: 10/06/23 07:06 Dose: Not Given Documented By: PAULA Non-Admin Reason: IV Running Zolpidem Tartrate (Zolpidem Tartrate 5 Mg Tablet) 5 mg PO BEDTIME PRN PRN Reason: Insomnia Labs 10/06/23 07:44 10/06/23 07:28 Labs: Laboratory Results - last 24 hr 10/05/23 10/05/23 10/06/23 16:41 21:10 07:28 MCV MCH MCHC RDW Plt Count MPV Immature Gran % (Auto) Neut % (Auto) Lymph % (Auto) [place] % (Auto) Eos % (Auto) Baso % (Auto) Lymph # (Auto) [place] # (Auto) Eos # (Auto) Baso # (Auto) Abs Immat Gran (auto) Absolute Neuts (auto) Absolute Nucleated RBC Nucleated RBC % (auto) Anion Gap 17 Estim Creat Clear Calc 164.4 Estimated GFR > 60 POC Glucose 186 H 144 H Random Glucose 158 H Estimat Average Glucose 157 Hemoglobin A1c % 7.1 H Calcium 9.0 D 10/06/23 10/06/23 07:44 09:32 MCV 85.7 MCH 30.1 MCHC 35.2 RDW 11.6 Plt Count 233 D MPV 10.0 Immature Gran % (Auto) 0.2 Neut % (Auto) 58.7 Lymph % (Auto) 32.2 [place] % (Auto) 7.8 Eos % (Auto) 0.9 Baso % (Auto) 0.2 Lymph # (Auto) 2.9 [place] # (Auto) 0.7 Eos # (Auto) 0.1 Baso # (Auto) 0.0 Abs Immat Gran (auto) 0.02 Absolute Neuts (auto) 5.2 Absolute Nucleated RBC 0.000 Nucleated RBC % (auto) 0.0 Anion Gap Estim Creat Clear Calc Estimated GFR POC Glucose 175 H Random Glucose Estimat Average Glucose Hemoglobin A1c % Calcium Assessment and Plan (1) Diabetes type 2, controlled: Status: Acute Plan This is a 38-year-old male with history of type 2 diabetes, tobacco dependence who presented to the emergency department with 4 day history of abdominal pain and diarrhea found to have partial small-bowel obstruction, admitted to the surgical service and NG tube placed Partial small-bowel obstruction s/p NGT placement 10/[address] scan showing no evidence of obstruction and improvement in stomach dilation. Plan to remove NG tube per surgery GI panel + for norovirus but analyzer issue causing false positives and therefore needs to be confirmed by outside lab - awaiting result T2DM noncompliant with metformin for several years Hba1c 7.1 follow POCs, if sugars are elevated can cover with SSI consider resuming metformin on discharge vs outpatient follow up with PCP tobacco dependence smoking cessation advised NRT elevated blood pressure readings Possibly secondary to pain Follow blood pressure trend and consider starting lisinopril 5 mg if continues to be elevated dvt ppx - lovenox Thank you for allowing us to participate in the care of this patient. We will follow along with you Quality Stroke Does the patient have a stroke diagnosis?: No VTE Prior VTE?: No VTE Risk Level:: Surgical - moderate VTE Device Contraindication: N/A - Device Ordered VTE Drug Contraindication: N/A - Med Ordered
[2023-10-06 15:20] VITALS: BP 188/88; PULSE 71; RESP 18; TEMP 36; O2SAT 93
[2023-10-06 15:35] LABS: Glucose, Whole Blood 170 mg/dL (60-115)
[2023-10-06 16:44] VITALS: BP 154/88
[2023-10-06 20:00] VITALS: BP 154/86; PULSE 70; RESP 18; TEMP 36.1; O2SAT 96
[2023-10-06 20:15] LABS: Glucose, Whole Blood 158 mg/dL (60-115)
[2023-10-07] MEDS: Dextrose 5 % and Lactated Ring 1,000 ML 125 ML IVCONT ×2 (01:42→09:02)
[2023-10-07] MEDS: HYDROmorphone HCl 0.5 MG/0.5 ML SYRINGE IVPUSH ×5 (01:46→21:08)
--- NOTE | 2023-10-07 02:52 | PC.NURSE ---
0116- HOSPITALIST ON DUTY ORDERED ATIVAN FOR THIS PATIENT IN ERROR, WRONG ROOM ORDER WAS FOR DIFFERENT RN, THEREFORE, WILL SHOW CANCELED ON AUG.
[2023-10-07 04:00] VITALS: BP 172/86; PULSE 58; RESP 16; TEMP 36.1; O2SAT 96
[2023-10-07 04:19] LABS: Glucose, Whole Blood 127 mg/dL (60-115)
[2023-10-07 07:42] VITALS: BP 184/80; PULSE 79; RESP 18; TEMP 36.7; O2SAT 94
[2023-10-07] MEDS: Nicotine 21 MG PATCH.TD24 TRANSDERMA (09:01)
--- NOTE | 2023-10-07 09:56 | PM.PNGS ---
Subjective Subjective Date of Service: 10/07/23 Interval history: no further nausea - he was put back on NPO yesterday after having nausea from liquids he feels he drank liquids to quickly passing flatus feels better today no significant pain want to eat Physical Exam Vital Signs: Vital Signs: Last Vital Signs Temp 98.1 F 10/07/23 07:42 Pulse 79 10/07/23 07:42 Resp 18 10/07/23 07:42 BP 184/80 H 10/07/23 07:42 Pulse Ox 94 10/07/23 07:42 O2 Del Method Room Air 10/07/23 07:42 BMI result Body Mass Index 39.3 Const: General: comfortable and no acute distress Cardio: Rate: regular rate GI: Inspection: No distended Palpation (GI): Soft to palpation, not firm, nontender and no guarding Objective Data Active Medications Enoxaparin Sodium (Enoxaparin Sodium 40 Mg/0.4 Ml Syringe) 40 mg SUBCUT DAILY [facility] Last Admin: 10/07/23 09:07 Dose: Not Given Documented By: LANETTE Non-Admin Reason: Patient Refused Glucose (Glucose Gel 15 Gm Gel..Gram.) 15 gm PO Q15M PRN; Protocol PRN Reason: per Hypoglycemia Standing Ord. Hydromorphone HCl (Hydromorphone Hcl 0.5 Mg/0.5 Ml Syringe) 0.5 mg IVPUSH Q3H PRN; Protocol PRN Reason: Pain, Severe (Pain Scale 7-10) Last Admin: 10/07/23 09:13 Dose: 0.5 mg Documented By: KAITY Dextrose/Lactated Ringer's (D5lr) 1,000 mls @ 125 mls/hr IVCONT .Q8H [facility] Last Admin: 10/07/23 09:02 Dose: 125 mls/hr Documented By: LANETTE Dextrose (D10) 250 mls @ 750 mls/hr IV Q15M PRN PRN Reason: per Hypoglycemia Standing Ord. Nicotine (Nicotine 21 Mg Patch.Td24) 21 mg TRANSDERMA DAILY [facility] Last Admin: 10/07/23 09:01 Dose: 21 mg Documented By: LANETTE Ondansetron HCl (Ondansetron Hcl 4 Mg/2 Ml Vial) 4 mg IVPUSH QID PRN PRN Reason: Nausea Last Admin: 10/06/23 22:08 Dose: 4 mg Documented By: YAN Sodium Chloride (0.9 % Sodium Chloride Flush 3 Ml Syringe) 3 ml IVFLUSH QSHIFT [facility] Last Admin: 10/07/23 09:03 Dose: Not Given Documented By: LANETTE Non-Admin Reason: IV Running Zolpidem Tartrate (Zolpidem Tartrate 5 Mg Tablet) 5 mg PO BEDTIME PRN PRN Reason: Insomnia Labs 10/06/23 07:44 10/06/23 07:28 Labs: Laboratory Results - last 24 hr 10/04/23 10/06/23 10/06/23 23:10 15:22 20:11 POC Glucose 170 H 158 H Stool Norovirus (PCR) SEE NOTE 10/07/23 04:09 POC Glucose 127 H Stool Norovirus (PCR) Procedures Date of Service Date of Service: 10/07/23 Progress Note: A&P Assessment and plan (1) SBO (small bowel obstruction): Status: Acute Assessment and Plan: CT shows contrast going through GI tract final report on norovirus - negative some other form of gastroenteritis? looks well clear liquids advance diet as tolerated exam benign Time Spent With Patient Time: Total time managing care of this patient today ____ minutes. Quality Stroke Does the patient have a stroke diagnosis?: No VTE Prior VTE?: No VTE Risk Level:: Surgical - moderate VTE Device Contraindication: N/A - Device Ordered VTE Drug Contraindication: N/A - Med Ordered
[2023-10-07 11:34] LABS: Glucose, Whole Blood 210 mg/dL (60-115)
[2023-10-07 12:48] LABS: Glucose, Whole Blood 236 mg/dL (60-115)
[2023-10-07 13:04] VITALS: BP 187/81
[2023-10-07] MEDS: lisinopriL 5 MG TABLET PO (13:05)
[2023-10-07] MEDS: Insulin Lispro 100 UNIT/ML 3 ML VIAL SUBCUT (13:05)
--- NOTE | 2023-10-07 13:08 | HO.PM.IMPN ---
Subjective Subjective Date of Service: 10/07/23 Interval History: seen and examined this morning follow up for pSBO abdominal pain better this am, no BM Review of Systems Review of Systems: Yes all other systems are reviewed and are negative Constitutional Constitutional: Denies chills and Denies fever(s) Physical Exam Vital Signs: Vital Signs: Last Vital Signs Temp 98.1 F 10/07/23 07:42 Pulse 79 10/07/23 07:42 Resp 18 10/07/23 07:42 BP 187/81 H 10/07/23 13:04 Pulse Ox 94 10/07/23 07:42 O2 Del Method Room Air 10/07/23 07:42 BMI result Body Mass Index 39.3 Const: General: cooperative, comfortable, no acute distress and awake Nutritional Appearance: overweight Orientation/consciousness: patient oriented x3 Resp: Effort & Inspection: normal respiratory effort, able to speak in complete sentences, no respiratory distress and no use of accessory muscles Cardio: Rate: regular rate GI: Other: soft, NT, ND Neuro: General: patient oriented x3, moves all extremities and CN's II-XI intact bilaterally Extrem: General: Yes no pedal edema Objective Data Active Medications Enoxaparin Sodium (Enoxaparin Sodium 40 Mg/0.4 Ml Syringe) 40 mg SUBCUT DAILY [facility] Last Admin: 10/07/23 09:07 Dose: Not Given Documented By: LANETTE Non-Admin Reason: Patient Refused Glucose (Glucose Gel 15 Gm Gel..Gram.) 15 gm PO Q15M PRN; Protocol PRN Reason: per Hypoglycemia Standing Ord. Hydromorphone HCl (Hydromorphone Hcl 0.5 Mg/0.5 Ml Syringe) 0.5 mg IVPUSH Q3H PRN; Protocol PRN Reason: Pain, Severe (Pain Scale 7-10) Last Admin: 10/07/23 09:13 Dose: 0.5 mg Documented By: KAITY Dextrose/Lactated Ringer's (D5lr) 1,000 mls @ 125 mls/hr IVCONT .Q8H [facility] Last Admin: 10/07/23 09:02 Dose: 125 mls/hr Documented By: LANETTE Dextrose (D10) 250 mls @ 750 mls/hr IV Q15M PRN PRN Reason: per Hypoglycemia Standing Ord. Insulin Human Lispro (Insulin Lispro 100 Unit/Ml 3 Ml Vial) 0 unit SUBCUT QIDACHS [facility]; Protocol Lisinopril (Lisinopril 5 Mg Tablet) 5 mg PO DAILY [facility]; Protocol Nicotine (Nicotine 21 Mg Patch.Td24) 21 mg TRANSDERMA DAILY [facility] Last Admin: 10/07/23 09:01 Dose: 21 mg Documented By: LANETTE Ondansetron HCl (Ondansetron Hcl 4 Mg/2 Ml Vial) 4 mg IVPUSH QID PRN PRN Reason: Nausea Last Admin: 10/06/23 22:08 Dose: 4 mg Documented By: YAN Sodium Chloride (0.9 % Sodium Chloride Flush 3 Ml Syringe) 3 ml IVFLUSH QSHIFT [facility] Last Admin: 10/07/23 09:03 Dose: Not Given Documented By: LANETTE Non-Admin Reason: IV Running Zolpidem Tartrate (Zolpidem Tartrate 5 Mg Tablet) 5 mg PO BEDTIME PRN PRN Reason: Insomnia Labs 10/06/23 07:44 10/06/23 07:28 Labs: Laboratory Results - last 24 hr 10/04/23 10/06/23 10/06/23 23:10 15:22 20:11 POC Glucose 170 H 158 H Stool Norovirus (PCR) SEE NOTE 10/07/23 10/07/23 10/07/23 04:09 11:29 12:44 POC Glucose 127 H 210 H 236 H Stool Norovirus (PCR) Assessment and Plan (1) Diabetes type 2, controlled: Status: Acute (2) SBO (small bowel obstruction): Status: Acute (3) HTN (hypertension): Status: Acute Plan This is a 38-year-old male with history of type 2 diabetes, tobacco dependence who presented to the emergency department with 4 day history of abdominal pain and diarrhea found to have partial small-bowel obstruction, admitted to the surgical service and NG tube placed Partial small-bowel obstruction s/p NGT repeat CT scan showing no evidence of obstruction and improvement in stomach dilation. GI panel negative advancing diet T2DM noncompliant with metformin for several years Hba1c 7.1 follow POCs, initiate SSI now that patient starting on diet consider resuming metformin on discharge vs outpatient follow up with PCP HTN start lisinopril 5 mg stop IVF tobacco dependence smoking cessation advised NRT dvt ppx - lovenox Thank you for allowing us to participate in the care of this patient. We will follow along with you Quality Stroke Does the patient have a stroke diagnosis?: No VTE Prior VTE?: No VTE Risk Level:: Surgical - moderate VTE Device Contraindication: N/A - Device Ordered VTE Drug Contraindication: N/A - Med Ordered
[2023-10-07 15:11] VITALS: BP 142/80; PULSE 58; RESP 18; TEMP 36.3; O2SAT 95
[2023-10-07 16:24] LABS: Glucose, Whole Blood 114 mg/dL (60-115)
[2023-10-07] MEDS: ondansetron HCL 4 MG/2 ML VIAL IVPUSH (16:33)
[2023-10-07] MEDS: 0.9 % Sodium Chloride Flush 3 ML SYRINGE IVFLUSH (16:42)
[2023-10-07 19:09] VITALS: BP 159/93; PULSE 60; RESP 18; TEMP 36.4; O2SAT 96
[2023-10-07 20:46] LABS: Glucose, Whole Blood 114 mg/dL (60-115)
[2023-10-07 23:23] LABS: Glucose, Whole Blood 170 mg/dL (60-115)
[2023-10-08] MEDS: ondansetron HCL 4 MG/2 ML VIAL IVPUSH ×2 (00:11→16:27)
[2023-10-08] MEDS: HYDROmorphone HCl 0.5 MG/0.5 ML SYRINGE IVPUSH ×6 (00:12→21:17)
[2023-10-08] MEDS: 0.9 % Sodium Chloride Flush 3 ML SYRINGE IVFLUSH ×3 (00:13→16:30)
[2023-10-08 03:39] VITALS: BP 160/78; PULSE 60; RESP 16; TEMP 36.9; O2SAT 98
[2023-10-08 07:24] VITALS: BP 184/83; PULSE 61; RESP 18; TEMP 36.2; O2SAT 95
[2023-10-08 07:47] LABS: Glucose, Whole Blood 119 mg/dL (60-115)
[2023-10-08] MEDS: Nicotine 21 MG PATCH.TD24 TRANSDERMA (08:13)
[2023-10-08] MEDS: lisinopriL 5 MG TABLET PO ×2 (08:13→16:27)
--- NOTE | 2023-10-08 09:57 | P.PNGS_ITS ---
Subjective Subjective Date of Service: 10/08/23 Interval history: Tolerating diet Passing flatus He says that he still feels a little bloated No diarrhea No nausea Physical Exam 2 Vital Signs: Vital Signs: Last Vital Signs Temp 97.2 F 10/08/23 07:24 Pulse 61 10/08/23 07:24 Resp 18 10/08/23 07:24 BP 184/83 H 10/08/23 07:24 Pulse Ox 95 10/08/23 07:24 O2 Del Method Room Air 10/08/23 07:24 BMI result Body Mass Index 39.3 Const: General: comfortable and no acute distress Resp: Effort & Inspection: normal respiratory effort Cardio: Rate: regular rate GI: Palpation (GI): Soft to palpation, not firm, nontender and no guarding Objective Data Active Medications Enoxaparin Sodium (Enoxaparin Sodium 40 Mg/0.4 Ml Syringe) 40 mg SUBCUT DAILY [facility] Last Admin: 10/08/23 08:08 Dose: Not Given Documented By: KAITY Non-Admin Reason: Patient Refused Glucose (Glucose Gel 15 Gm Gel..Gram.) 15 gm PO Q15M PRN; Protocol PRN Reason: per Hypoglycemia Standing Ord. Hydromorphone HCl (Hydromorphone Hcl 0.5 Mg/0.5 Ml Syringe) 0.5 mg IVPUSH Q3H PRN; Protocol PRN Reason: Pain, Severe (Pain Scale 7-10) Last Admin: 10/08/23 08:13 Dose: 0.5 mg Documented By: KAITY Dextrose (D10) 250 mls @ 750 mls/hr IV Q15M PRN PRN Reason: per Hypoglycemia Standing Ord. Insulin Human Lispro (Insulin Lispro 100 Unit/Ml 3 Ml Vial) 0 unit SUBCUT QIDACHS [facility]; Protocol Last Admin: 10/08/23 08:09 Dose: Not Given Documented By: KAITY Non-Admin Reason: No Insulin Coverage Lisinopril (Lisinopril 5 Mg Tablet) 5 mg PO DAILY [facility]; Protocol Last Admin: 10/08/23 08:13 Dose: 5 mg Documented By: KAITY Nicotine (Nicotine 21 Mg Patch.Td24) 21 mg TRANSDERMA DAILY [facility] Last Admin: 10/08/23 08:13 Dose: 21 mg Documented By: KAITY Ondansetron HCl (Ondansetron Hcl 4 Mg/2 Ml Vial) 4 mg IVPUSH QID PRN PRN Reason: Nausea Last Admin: 10/08/23 00:11 Dose: 4 mg Documented By: ROSEANNA Sodium Chloride (0.9 % Sodium Chloride Flush 3 Ml Syringe) 3 ml IVFLUSH QSHIFT [facility] Last Admin: 10/08/23 08:14 Dose: 3 ml Documented By: KAITY Zolpidem Tartrate (Zolpidem Tartrate 5 Mg Tablet) 5 mg PO BEDTIME PRN PRN Reason: Insomnia Labs 10/06/23 07:44 10/06/23 07:28 Labs: Laboratory Results - last 24 hr 10/07/23 10/07/23 10/07/23 11:29 12:44 16:21 POC Glucose 210 H 236 H 114 10/07/23 10/07/23 10/08/23 20:43 23:19 07:28 POC Glucose 114 170 H 119 H Procedures Date of Service Date of Service: 10/08/23 Progress Note: A&P Assessment and plan (1) SBO (small bowel obstruction): Status: Acute Assessment and Plan: Clinically not obstructed Tolerating diet Passing flatus CT scan shows good passage of poor contrast Exam remains benign He states he is not ready to be discharged - feels some bloating Time Spent With Patient Time: Total time managing care of this patient today ____ minutes. Quality Stroke Does the patient have a stroke diagnosis?: No VTE Prior VTE?: No VTE Risk Level:: Surgical - moderate VTE Device Contraindication: N/A - Device Ordered VTE Drug Contraindication: N/A - Med Ordered
[2023-10-08 11:25] LABS: Glucose, Whole Blood 139 mg/dL (60-115)
--- NOTE | 2023-10-08 12:09 | HO.PM.IMPN ---
Subjective Subjective Date of Service: 10/08/23 Interval History: seen and examined, follow up for medical consultation still with some abdominal pain and bloating; no nausea or vomiting Review of Systems Review of Systems: Yes all other systems are reviewed and are negative Constitutional Constitutional: Denies chills and Denies fever(s) ENT Ears, Nose, Mouth, and Throat: Denies dizziness Cardiovascular Cardiovascular: Denies chest pain, Denies palpitations and Denies dyspnea Respiratory Respiratory: Denies cough and Denies dyspnea Gastrointestinal Gastrointestinal: Reports abdominal pain Neurologic Neurologic: Denies dizziness Endocrine Endocrine: Denies palpitations Physical Exam Vital Signs: Vital Signs: Last Vital Signs Temp 97.2 F 10/08/23 07:24 Pulse 61 10/08/23 07:24 Resp 18 10/08/23 07:24 BP 184/83 H 10/08/23 07:24 Pulse Ox 95 10/08/23 07:24 O2 Del Method Room Air 10/08/23 07:24 BMI result Body Mass Index 39.3 Const: General: cooperative, comfortable, no acute distress, alert and awake Nutritional Appearance: overweight Orientation/consciousness: patient oriented x3 Resp: Effort & Inspection: normal respiratory effort, able to speak in complete sentences, no respiratory distress and no use of accessory muscles Cardio: Rate: regular rate GI: Other: soft, NT, ND Neuro: General: patient oriented x3, moves all extremities and CN's II-XI intact bilaterally Extrem: General: Yes no pedal edema Objective Data Active Medications Enoxaparin Sodium (Enoxaparin Sodium 40 Mg/0.4 Ml Syringe) 40 mg SUBCUT DAILY [facility] Last Admin: 10/08/23 08:08 Dose: Not Given Documented By: KAITY Non-Admin Reason: Patient Refused Glucose (Glucose Gel 15 Gm Gel..Gram.) 15 gm PO Q15M PRN; Protocol PRN Reason: per Hypoglycemia Standing Ord. Hydromorphone HCl (Hydromorphone Hcl 0.5 Mg/0.5 Ml Syringe) 0.5 mg IVPUSH Q3H PRN; Protocol PRN Reason: Pain, Severe (Pain Scale 7-10) Last Admin: 10/08/23 11:33 Dose: 0.5 mg Documented By: KAITY Dextrose (D10) 250 mls @ 750 mls/hr IV Q15M PRN PRN Reason: per Hypoglycemia Standing Ord. Insulin Human Lispro (Insulin Lispro 100 Unit/Ml 3 Ml Vial) 0 unit SUBCUT QIDACHS [facility]; Protocol Last Admin: 10/08/23 11:31 Dose: Not Given Documented By: KAITY Non-Admin Reason: No Insulin Coverage Lisinopril (Lisinopril 5 Mg Tablet) 5 mg PO DAILY [facility]; Protocol Last Admin: 10/08/23 08:13 Dose: 5 mg Documented By: KAITY Nicotine (Nicotine 21 Mg Patch.Td24) 21 mg TRANSDERMA DAILY [facility] [place] Last Admin: 10/08/23 08:13 Dose: 21 mg Documented By: KAITY Ondansetron HCl (Ondansetron Hcl 4 Mg/2 Ml Vial) 4 mg IVPUSH QID PRN PRN Reason: Nausea Last Admin: 10/08/23 00:11 Dose: 4 mg Documented By: ROSEANNA Sodium Chloride (0.9 % Sodium Chloride Flush 3 Ml Syringe) 3 ml IVFLUSH QSHIFT [facility] Last Admin: 10/08/23 08:14 Dose: 3 ml Documented By: KAITY Zolpidem Tartrate (Zolpidem Tartrate 5 Mg Tablet) 5 mg PO BEDTIME PRN PRN Reason: Insomnia Labs 10/06/23 07:44 10/06/23 07:28 Labs: Laboratory Results - last 24 hr 10/07/23 10/07/23 10/07/23 12:44 16:21 20:43 POC Glucose 236 H 114 114 10/07/23 10/08/23 10/08/23 23:19 07:28 11:21 POC Glucose 170 H 119 H 139 H Assessment and Plan (1) HTN (hypertension): Status: Acute (2) Diabetes type 2, controlled: Status: Acute Plan This is a 38-year-old male with history of type 2 diabetes, tobacco dependence who presented to the emergency department with 4 day history of abdominal pain and diarrhea found to have partial small-bowel obstruction, admitted to the surgical service and NG tube placed Partial small-bowel obstruction s/p NGT repeat CT scan showing no evidence of obstruction and improvement in stomach dilation. GI panel negative advancing diet T2DM noncompliant with metformin for several years Hba1c 7.1 follow POCs, initiate SSI now that patient starting on diet consider resuming metformin 500 bid on discharge vs outpatient follow up with PCP to resume meds importance of compliance with diabetic diet discussed HTN start lisinopril 5 mg - may need to increase to 10 mg tobacco dependence smoking cessation advised NRT dvt ppx - lovenox Thank you for allowing us to participate in the care of this patient. We will follow along with you Quality Stroke Does the patient have a stroke diagnosis?: No VTE Prior VTE?: No VTE Risk Level:: Surgical - moderate VTE Device Contraindication: N/A - Device Ordered VTE Drug Contraindication: N/A - Med Ordered
[2023-10-08 13:39] VITALS: BP 173/76; PULSE 70
[2023-10-08 15:16] VITALS: PULSE 60; RESP 18; TEMP 35.9; O2SAT 94
--- NOTE | 2023-10-08 16:18 | PM.EVENT ---
Event Note Date of Service: 10/09/23 Event Note: states he is not ready to be discharged describes some bloating, abdl cramping abd soft, benign, minmal tenderness not localized clinically looks well stable VS will place back on clears labs in AM Time Spent With Patient Time: Total time managing care of this patient today ____ minutes.
[2023-10-08 16:27] LABS: Glucose, Whole Blood 165 mg/dL (60-115)
[2023-10-08] MEDS: Lactated Ringers 1,000 ML 80 ML IVCONT (16:48)
[2023-10-08] MEDS: Insulin Lispro 100 UNIT/ML 3 ML VIAL SUBCUT (16:50)
[2023-10-08 19:48] LABS: Glucose, Whole Blood 129 mg/dL (60-115)
[2023-10-08 19:51] VITALS: BP 157/62; PULSE 60; RESP 18; TEMP 36.9; O2SAT 97
[2023-10-09] MEDS: HYDROmorphone HCl 0.5 MG/0.5 ML SYRINGE IVPUSH ×7 (00:22→21:45)
[2023-10-09 03:30] VITALS: BP 162/77; PULSE 59; RESP 18; TEMP 36.6; O2SAT 96
[2023-10-09] MEDS: Lactated Ringers 1,000 ML 80 ML IVCONT (03:48)
[2023-10-09 06:38] LABS: Hematocrit 37.3 % (42.0-52.0); Hemoglobin 13.1 g/dl (14.0-18.0); Mean Corpuscular HGB Conc 35.1 g/dl (31.0-36.0); Mean Corpuscular Hemoglobin 29.9 pg (27.0-33.0); Mean Corpuscular Volume 85.2 fL (80.0-98.0); Mean Platelet Volume 10.1 fL (9.4-12.4); Platelet Count 251 X10*3/uL (160-400); Red Blood Count 4.38 X10*6/uL (4.60-5.80); Red Cell Distribution Width 11.1 % (11.0-16.0); White Blood Count 6.9 X10*3/uL (4.8-10.8)
[2023-10-09 06:56] LABS: Anion Gap 11 (12-20); Blood Urea Nitrogen 9 mg/dL (9-16); Calcium 8.7 mg/dL (8.4-10.2); Carbon Dioxide 24 mmol/L (22-29); Chloride 104 mmol/L (96-108); Creatinine Clr Calc Pharmacy 173.2; Estimated Glomerular Filt Rate > 60; Glucose Random 84 mg/dL (60-115); Potassium 3.8 mmol/L (3.3-5.1); Sodium 135 mmol/L (135-145)
[2023-10-09 07:25] VITALS: BP 166/75; PULSE 61; RESP 12; TEMP 36.8; O2SAT 96
[2023-10-09 07:42] LABS: Glucose, Whole Blood 98 mg/dL (60-115)
--- NOTE | 2023-10-09 08:14 | P.PNGS_ITS ---
Subjective Subjective Date of Service: 10/10/23 Interval history: Now complains of migraine Denies abdominal pain Passing flatus Wants to try to eat again Physical Exam 2 Vital Signs: Vital Signs: Last Vital Signs Temp 98.2 F 10/09/23 07:25 Pulse 61 10/09/23 07:25 Resp 12 10/09/23 07:25 BP 166/75 H 10/09/23 07:25 Pulse Ox 96 10/09/23 07:25 O2 Del Method Room Air 10/09/23 07:25 BMI result Body Mass Index 39.3 Const: General: comfortable and no acute distress Resp: Effort & Inspection: normal respiratory effort Cardio: Rate: regular rate GI: Palpation (GI): Soft to palpation, not firm, nontender and no guarding Objective Data Active Medications Enoxaparin Sodium (Enoxaparin Sodium 40 Mg/0.4 Ml Syringe) 40 mg SUBCUT DAILY [facility] Last Admin: 10/08/23 08:08 Dose: Not Given Documented By: KAITY Non-Admin Reason: Patient Refused Glucose (Glucose Gel 15 Gm Gel..Gram.) 15 gm PO Q15M PRN; Protocol PRN Reason: per Hypoglycemia Standing Ord. Hydromorphone HCl (Hydromorphone Hcl 0.5 Mg/0.5 Ml Syringe) 0.5 mg IVPUSH Q3H PRN; Protocol PRN Reason: Pain, Severe (Pain Scale 7-10) Last Admin: 10/09/23 07:23 Dose: 0.5 mg Documented By: AIDA Dextrose (D10) 250 mls @ 750 mls/hr IV Q15M PRN PRN Reason: per Hypoglycemia Standing Ord. Lactated Ringer's (Lr) 1,000 mls @ 80 mls/hr IVCONT .[id number] [facility] Last Admin: 10/09/23 03:48 Dose: 80 mls/hr Documented By: YAN Insulin Human Lispro (Insulin Lispro 100 Unit/Ml 3 Ml Vial) 0 unit SUBCUT QIDACHS [facility]; Protocol Last Admin: 10/09/23 07:52 Dose: Not Given Documented By: AIDA Non-Admin Reason: No Insulin Coverage Lisinopril (Lisinopril 10 Mg Tablet) 10 mg PO DAILY [facility]; Protocol Nicotine (Nicotine 21 Mg Patch.Td24) 21 mg TRANSDERMA DAILY [facility] Last Admin: 10/08/23 08:13 Dose: 21 mg Documented By: KAITY Ondansetron HCl (Ondansetron Hcl 4 Mg/2 Ml Vial) 4 mg IVPUSH QID PRN PRN Reason: Nausea Last Admin: 10/08/23 16:27 Dose: 4 mg Documented By: LANETTE Sodium Chloride (0.9 % Sodium Chloride Flush 3 Ml Syringe) 3 ml IVFLUSH QSHIFT [facility] Last Admin: 10/08/23 23:55 Dose: Not Given Documented By: YAN Non-Admin Reason: IV Running Zolpidem Tartrate (Zolpidem Tartrate 5 Mg Tablet) 5 mg PO BEDTIME PRN PRN Reason: Insomnia Labs 10/09/23 05:49 10/09/23 05:49 Labs: Laboratory Results - last 24 hr 10/08/23 10/08/23 10/08/23 11:21 16:22 19:17 MCV MCH MCHC RDW Plt Count MPV Absolute Nucleated RBC Nucleated RBC % (auto) Anion Gap Estim Creat Clear Calc Estimated GFR POC Glucose 139 H 165 H 129 H Random Glucose Calcium 10/09/23 10/09/23 05:49 07:30 MCV 85.2 MCH 29.9 MCHC 35.1 RDW 11.1 Plt Count 251 MPV 10.1 Absolute Nucleated RBC 0.000 Nucleated RBC % (auto) 0.0 Anion Gap 11 L Estim Creat Clear Calc 173.2 Estimated GFR > 60 POC Glucose 98 Random Glucose 84 Calcium 8.7 Procedures Date of Service Date of Service: 10/10/23 Progress Note: A&P Assessment and plan (1) SBO (small bowel obstruction): Status: Acute Assessment and Plan: Denies abdominal pain, nausea or vomiting We will reach try regular diet Ambulate Labs okay Abdominal exam remains benign Time Spent With Patient Time: Total time managing care of this patient today ____ minutes. Quality Stroke Does the patient have a stroke diagnosis?: No VTE Prior VTE?: No VTE Risk Level:: Surgical - moderate VTE Device Contraindication: N/A - Device Ordered VTE Drug Contraindication: N/A - Med Ordered
[2023-10-09] MEDS: Nicotine 21 MG PATCH.TD24 TRANSDERMA (08:17)
[2023-10-09] MEDS: lisinopriL 10 MG TABLET PO (08:19)
[2023-10-09 11:53] LABS: Glucose, Whole Blood 238 mg/dL (60-115)
[2023-10-09] MEDS: Insulin Lispro 100 UNIT/ML 3 ML VIAL SUBCUT ×3 (12:16→21:43)
--- NOTE | 2023-10-09 12:31 | MHC.CM.PN ---
EMR REVIEWED. PER MD ROUNDS PATIENT IS NOT MEDICALLY CLEARED FOR DC. NO CHANGES TO DC PLAN. CM WILL CONTINUE TO FOLLOW.
[2023-10-09 15:36] VITALS: BP 180/83; PULSE 68; RESP 18; TEMP 36.2; O2SAT 92
[2023-10-09] MEDS: Magnesium Hydrox/Alum Hydrox 30 ML ORAL.SUSP PO (15:51)
[2023-10-09 16:22] LABS: Glucose, Whole Blood 151 mg/dL (60-115)
[2023-10-09] MEDS: 0.9 % Sodium Chloride Flush 3 ML SYRINGE IVFLUSH ×2 (17:42→21:45)
[2023-10-09] MEDS: ondansetron HCL 4 MG/2 ML VIAL IVPUSH (18:31)
[2023-10-09 19:41] VITALS: BP 188/76; PULSE 76; RESP 18; TEMP 36.5; O2SAT 92
[2023-10-09 20:30] LABS: Glucose, Whole Blood 187 mg/dL (60-115)
[2023-10-09 21:42] VITALS: BP 182/84
[2023-10-09 23:45] VITALS: BP 172/80
[2023-10-10] MEDS: HYDROmorphone HCl 0.5 MG/0.5 ML SYRINGE IVPUSH ×3 (01:28→07:49)
[2023-10-10 03:30] VITALS: BP 166/70; PULSE 65; RESP 18; TEMP 36.5; O2SAT 97
[2023-10-10 07:15] LABS: Glucose, Whole Blood 155 mg/dL (60-115)
[2023-10-10 07:46] VITALS: BP 158/68; PULSE 59; RESP 12; TEMP 36.1; O2SAT 95
--- NOTE | 2023-10-10 07:55 | PM.PNGS ---
Subjective Subjective Date of Service: 10/10/23 Interval history: feels well tolerating diet says he is ready to go home has BMs, no diarrhea Physical Exam Vital Signs: Vital Signs: Last Vital Signs Temp 97.0 F 10/10/23 07:46 Pulse 59 10/10/23 07:46 Resp 12 10/10/23 07:46 BP 158/68 H 10/10/23 07:46 Pulse Ox 95 10/10/23 07:46 O2 Del Method Room Air 10/10/23 07:46 BMI result Body Mass Index 39.3 Const: General: comfortable and no acute distress Orientation/consciousness: patient oriented x3 Neck: Neck: Yes no lymphadenopathy Resp: Auscultation: clear to auscultation bilaterally Cardio: Rhythm: regular rhythm GI: Palpation (GI): Soft to palpation, nontender and no guarding Neuro: General: patient oriented x3 Objective Data Active Medications Al Hydroxide/Mg Hydroxide (Magnesium Hydrox/Alum Hydrox 30 Ml Oral.Susp) 30 ml PO Q6H PRN PRN Reason: Heartburn Last Admin: 10/09/23 15:51 Dose: 30 ml Documented By: AIDA Enoxaparin Sodium (Enoxaparin Sodium 40 Mg/0.4 Ml Syringe) 40 mg SUBCUT DAILY [facility] Last Admin: 10/09/23 08:21 Dose: Not Given Documented By: AIDA Non-Admin Reason: Patient Refused Glucose (Glucose Gel 15 Gm Gel..Gram.) 15 gm PO Q15M PRN; Protocol PRN Reason: per Hypoglycemia Standing Ord. Hydromorphone HCl (Hydromorphone Hcl 0.5 Mg/0.5 Ml Syringe) 0.5 mg IVPUSH Q3H PRN; Protocol PRN Reason: Pain, Severe (Pain Scale 7-10) Last Admin: 10/10/23 07:49 Dose: 0.5 mg Documented By: AIDA Dextrose (D10) 250 mls @ 750 mls/hr IV Q15M PRN PRN Reason: per Hypoglycemia Standing Ord. Insulin Human Lispro (Insulin Lispro 100 Unit/Ml 3 Ml Vial) 0 unit SUBCUT QIDACHS [facility]; Protocol Last Admin: 10/09/23 21:43 Dose: 2 unit Documented By: SPARKLE Lisinopril (Lisinopril 10 Mg Tablet) 10 mg PO DAILY [facility]; Protocol Last Admin: 10/09/23 08:19 Dose: 10 mg Documented By: AIDA Nicotine (Nicotine 21 Mg Patch.Td24) 21 mg TRANSDERMA DAILY [facility] Last Admin: 10/09/23 08:17 Dose: 21 mg Documented By: AIDA Ondansetron HCl (Ondansetron Hcl 4 Mg/2 Ml Vial) 4 mg IVPUSH QID PRN PRN Reason: Nausea Last Admin: 10/09/23 18:31 Dose: 4 mg Documented By: AIDA Sodium Chloride (0.9 % Sodium Chloride Flush 3 Ml Syringe) 3 ml IVFLUSH QSHIFT [facility] Last Admin: 10/09/23 21:45 Dose: 3 ml Documented By: SPARKLE Labs 10/09/23 05:49 10/09/23 05:49 Labs: Laboratory Results - last 24 hr 10/09/23 10/09/23 10/09/23 11:48 16:13 20:20 POC Glucose 238 H 151 H 187 H 10/10/23 07:11 POC Glucose 155 H Procedures Date of Service Date of Service: 10/10/23 Progress Note: A&P Assessment and plan (1) SBO (small bowel obstruction): Status: Acute Assessment and Plan: clinically not obstructed possible enteritis looks well says he is ready to be discharged good GI function counseled on DM control, BP needs ffup with PCP seen by hospitalist Time Spent With Patient Time: Total time managing care of this patient today ____ minutes. Quality Stroke Does the patient have a stroke diagnosis?: No VTE Prior VTE?: No VTE Risk Level:: Surgical - moderate VTE Device Contraindication: N/A - Device Ordered VTE Drug Contraindication: N/A - Med Ordered
[2023-10-10] MEDS: lisinopriL 10 MG TABLET PO (08:07)
[2023-10-10] MEDS: 0.9 % Sodium Chloride Flush 3 ML SYRINGE IVFLUSH (08:09)
[2023-10-10] MEDS: Insulin Lispro 100 UNIT/ML 3 ML VIAL SUBCUT (08:10)
--- NOTE | 2023-10-10 08:33 | MHC.CM.PN ---
EMR reviewed. Patient is medically cleared for dc home self care. Patient reports he lives nearby and prefers to walk home. RN aware and agreeable. Patient is unsure if insurance is active. Patient will communicate with [facility] for prescription coverage.
--- NOTE | 2023-10-16 13:17 | PM.DS ---
DS: Providers Provider Date of Service: 10/10/23 Date of admission: 10/05/23 02:19 Primary care physician: None Physician Consults: 10/05/23 12:05 Consult to Hospitalist Routine Comment: Consulting Provider: Hospitalist Reason For Exam: diabetes, med management, norovirus, SBO 10/08/23 09:57 Consult to Hospitalist Routine Comment: Consulting Provider: Hospitalist Reason For Exam: HTN DS: Diagnosis Discharge Diagnosis (1) SBO (small bowel obstruction): Status: Acute DS: Summary Hospital Course Hospital Course: 38-year-old male admitted on 10/05/2023 because of abdominal pain and nausea. His initial CT scan showed small bowel dilatation suggestive of partial small-bowel obstruction. He had an NG tube inserted. He was started on IV fluids and was kept NPO temporarily. He however had a follow-up CT scan with oral contrast on October 06, 2023. This showed that the oral contrast passed all the way distally and did not reveal any obstruction. The NG tube was removed. Also he initially tested positive for norovirus but the definitive test was negative I started on clear liquids which he tolerated. He was passing flatus and actually had some diarrhea. He was on regular diet on his 3rd hospital day but complained of bloating so I had to put him back on clear liquids. He continued to improve thereafter and eventually I restarted him on regular diet which he tolerated. He continued to pass flatus and his diarrhea had improved . He was discharged on October 10, 2023. The impression therefore was possible nonspecific gastroenteritis. At the time of his discharge, he was tolerating regular diet, had good BMs denied abdominal pain. Time Attestation Discharge Coordination Time (in mins): 30 min Quality: Safe Use of Opioids Does Pt have an Active Cancer Diagnosis on the Problem List?: No Quality: Stroke Does the patient have a stroke diagnosis?: No Physical Exam Vital Signs: Vital Signs: Last Vital Signs Temp 97.0 F 10/10/23 07:46 Pulse 59 10/10/23 07:46 Resp 12 10/10/23 07:46 BP 158/68 H 10/10/23 07:46 Pulse Ox 95 10/10/23 07:46 O2 Del Method Room Air 10/10/23 07:46 BMI result Body Mass Index 39.3 Const: General: comfortable and no acute distress Orientation/consciousness: patient oriented x3 Neck: Neck: Yes no lymphadenopathy Resp: Auscultation: clear to auscultation bilaterally Cardio: Rhythm: regular rhythm GI: Palpation (GI): Soft to palpation, nontender and no guarding Neuro: General: patient oriented x3 DS: Data Data Completed and Pending Completed studies during hospitalization [Text1]: Laboratory Results WBC 6.9 X10*3/uL (4.8-10.8) 10/09/23 05:49 RBC 4.38 X10*6/uL (4.60-5.80) L 10/09/23 05:49 Hgb 13.1 g/dl (14.0-18.0) L 10/09/23 05:49 Hct 37.3 % (42.0-52.0) L 10/09/23 05:49 MCV 85.2 fL (80.0-98.0) 10/09/23 05:49 MCH 29.9 pg (27.0-33.0) 10/09/23 05:49 MCHC 35.1 g/dl (31.0-36.0) 10/09/23 05:49 RDW 11.1 % (11.0-16.0) 10/09/23 05:49 Plt Count 251 X10*3/uL (160-400) 10/09/23 05:49 MPV 10.1 fL (9.4-12.4) 10/09/23 05:49 Immature Gran % (Auto) 0.2 % (0.0-0.4) 10/06/23 07:44 Neut % (Auto) 58.7 % (45-73) 10/06/23 07:44 Lymph % (Auto) 32.2 % (20-40) 10/06/23 07:44 [place] % (Auto) 7.8 % (2-11) 10/06/23 07:44 Eos % (Auto) 0.9 % (0-4) 10/06/23 07:44 Baso % (Auto) 0.2 % (0-2) 10/06/23 07:44 Lymph # (Auto) 2.9 X10*3/uL (1.2-4.9) 10/06/23 07:44 [place] # (Auto) 0.7 X10*3/uL (0.1-1.2) 10/06/23 07:44 Eos # (Auto) 0.1 X10*3/uL (0.0-0.4) 10/06/23 07:44 Baso # (Auto) 0.0 X10*3/uL (0.0-0.2) 10/06/23 07:44 Abs Immat Gran (auto) 0.02 X10*3/uL (0.00-0.03) 10/06/23 07:44 Absolute Neuts (auto) 5.2 x10*3/uL (2.0-8.3) 10/06/23 07:44 Absolute Nucleated RBC 0.000 X10*3/uL (0.0-0.012) 10/09/23 05:49 Nucleated RBC % (auto) 0.0 /100WBC (0.0-0.2) 10/09/23 05:49 Sodium 135 mmol/L (135-145) 10/09/23 05:49 Potassium 3.8 mmol/L (3.3-5.1) 10/09/23 05:49 Chloride 104 mmol/L (96-108) 10/09/23 05:49 Carbon Dioxide 24 mmol/L (22-29) 10/09/23 05:49 Anion Gap 11 (12-20) L 10/09/23 05:49 BUN 9 mg/dL (9-16) 10/09/23 05:49 Creatinine 0.75 mg/dL (0.5-1.4) 10/09/23 05:49 Estim Creat Clear Calc 173.2 10/09/23 05:49 Estimated GFR > 60 10/09/23 05:49 POC Glucose 155 mg/dL (60-115) H 10/10/23 07:11 Random Glucose 84 mg/dL (60-115) 10/09/23 05:49 Estimat Average Glucose 157 mg/dL 10/06/23 07:28 Hemoglobin A1c % 7.1 % (<6.0) H 10/06/23 07:28 Calcium 8.7 mg/dL (8.4-10.2) 10/09/23 05:49 Total Bilirubin 0.6 mg/dL (0.0-1.0) 10/04/23 11:48 AST 12 U/L (5-37) 10/04/23 11:48 ALT 16 U/L (0-40) 10/04/23 11:48 Alkaline Phosphatase 115 U/L (39-117) 10/04/23 11:48 Troponin I High Sens 33.0 ng/L (<3.5-35.0) 10/05/23 01:15 Total Protein 9.0 g/dL (6.5-8.0) H 10/04/23 11:48 Albumin 4.8 g/dL (3.5-5.0) 10/04/23 11:48 Lipase 26 U/L (8-78) 10/04/23 11:48 Urine Color Yellow 10/04/23 20:47 Urine Appearance Clear 10/04/23 20:47 Urine pH 5.5 (5.0-9.0) 10/04/23 20:47 Ur Specific [place] >= 1.030 (1.005-1.025) H 10/04/23 20:47 Urine Protein Trace mg/dL (Neg-Trace) 10/04/23 20:47 Urine Glucose (UA) 250 mg/dL (Negative) H 10/04/23 20:47 Urine Ketones Negative mg/dL (Negative) 10/04/23 20:47 Urine Blood Negative (Negative) 10/04/23 20:47 Urine Nitrite Negative (Negative) 10/04/23 20:47 Ur Leukocyte Esterase Negative (Negative) 10/04/23 20:47 Stl C. cayetanensis PCR Not Detected (Not Detect.) 10/04/23 23:10 Stool Rotavirus A PCR Not Detected (Not Detect.) 10/04/23 23:10 Stl Adenov F 40/41 PCR Not Detected (Not Detect.) 10/04/23 23:10 Stool Astrovirus (PCR) Not Detected (Not Detect.) 10/04/23 23:10 Stool Campylobacter PCR Not Detected (Not Detect.) 10/04/23 23:10 Stool Cryptosporidium PCR Not Detected (Not Detect.) 10/04/23 23:10 Stl Sh Tox Pr E STEC PCR Not Detected (Not Detect.) 10/04/23 23:10 Stool E coli O157 PCR Not applicable (Not Detect.) 10/04/23 23:10 Stl Enterotoxigenic E PCR Not Detected (Not Detect.) 10/04/23 23:10 Stool EPEC (PCR) Not Detected (Not Detect.) 10/04/23 23:10 Stool EAEC (PCR) Not Detected (Not Detect.) 10/04/23 23:10 Stl E. histolytica PCR Not Detected (Not Detect.) 10/04/23 23:10 Stool Giardia Lamblia PCR Not Detected (Not Detect.) 10/04/23 23:10 Stl P. shigelloides PCR Not Detected (Not Detect.) 10/04/23 23:10 Stool Salmonella PCR Not Detected (Not Detect.) 10/04/23 23:10 Stool Sapovirus (PCR) Not Detected (Not Detect.) 10/04/23 23:10 Stl Shigella/EIEC PCR Not Detected (Not Detect.) 10/04/23 23:10 St Y.enterocolitica PCR Not Detected (Not Detect.) 10/04/23 23:10 Stool Vibrio (PCR) Not Detected (Not Detect.) 10/04/23 23:10 Stl Vibrio cholerae PCR Not Detected (Not Detect.) 10/04/23 23:10 Stool Norovirus (PCR) SEE NOTE 10/04/23 23:10 Stl Norovirus GI/GII PCR See Comment (Not Detect.) 10/04/23 23:10 Urine Opiates Screen Not Detected (Not Detect) 10/04/23 20:47 Urine Fentanyl Screen Not Detected (Not Detect) 10/04/23 20:47 Ur Barbiturates Screen Not Detected (Not Detect) 10/04/23 20:47 Ur Phencyclidine Scrn Not Detected (Not Detect) 10/04/23 20:47 Ur Amphetamines Screen POSITIVE (Not Detect) H 10/04/23 20:47 U Benzodiazepines Scrn Not Detected (Not Detect) 10/04/23 20:47 Urine Cocaine Screen POSITIVE (Not Detect) H 10/04/23 20:47 U Marijuana (THC) Screen POSITIVE (Not Detect) H 10/04/23 20:47 Ethyl Alcohol < 10 mg/dL 10/04/23 11:48 C. difficile Tox B Gene NEGATIVE (Negative) 10/04/23 23:10 Influenza Type A (PCR) NEGATIVE (Negative) 10/04/23 23:10 Influenza Type B (PCR) NEGATIVE (Negative) 10/04/23 23:10 RSV RNA Qual (PCR) NEGATIVE (Negative) 10/04/23 23:10 SARS-CoV-2 RNA (RT-PCR) NEGATIVE (Negative) 10/04/23 23:10 Impressions Chest X-Ray 10/05/23 03:00 IMPRESSION: Lung apices are not imaged. 1. Gastric tube extends below the diaphragm into the left upper quadrant. 2. Low lung volumes with bibasilar atelectasis. Abdomen/Pelvis CT 10/06/23 13:18 IMPRESSION: Significant improvement in small bowel dilatation. No evidence of mechanical small bowel obstruction. Decreasing free pelvic fluid. Indwelling NG tube as described. Diverticulosis without diverticulitis. Increasing bibasilar atelectasis. Fleischner guidelines were followed. Discharge Plan Discharge Anticipated Discharge Date/Time: 10/10/23 07:56 Patient Disposition: Home, Self-Care Discharge Diagnosis: Gastroenteritis, partial small-bowel obstruction Referrals: Graham Florez MD [Physician] - 3 Weeks Physician,None [Primary Care Provider] - 1 Week Discharge Medications: New lisinopril 10 mg Tablet 10 mg PO DAILY Qty: 30 1RF Protocol: Hold for SBP< HOLD for SBP < : 90 Continued omeprazole 20 mg Capsule,Delayed Release(Dr/Ec) 20 mg PO DAILY PRN (Reason: Acid Reflux) Discharge Orders: Discharge Order (Routine); Ordered 10/10/23 Ordered By: Kanu Jones Diet: Diabetic diet Activity on Discharge: As tolerated Stand Alone Forms: Patient Portal Discharge page Print Language: Australian Activity Restrictions/Additional Instructions: need to ffup- with PCP for hypertension, DM Care Plan Goals: Return to normal activity and diet Health Concerns: Abdominal pain, nausea, vomiting, diarrhea Plan of Treatment: Bowel rest, nasogastric tube decompression Assessment: Viral gastroenteritis, partial small-bowel obstruction Discharge Date/Time: 10/10/23 09:08
== END 2023-10-10 09:08 | disposition home or self-care (01) | DRG 249 ==
LOC: HO.ED 20:55 → HO.EDOVER 10-05 02:36 → HO.S3 10-05 15:54
PROVIDERS: Physician Assistant; Physician Assistant Medical; Surgery; Admitting Provider Surgery; Emergency Provider Internal Medicine; Visit Provider Nurse Practitioner Acute Care
DX: K52.9 Noninfective gastroenteritis and colitis, unspecified (principal); E11.9 Type 2 diabetes mellitus without complications; F17.210 Nicotine dependence, cigarettes, uncomplicated; Z71.6 Tobacco abuse counseling; Z91.148 Patient's other noncompliance with medication regimen for other reason; R03.0 Elevated blood-pressure reading, without diagnosis of hypertension; Z20.822 Contact with and (suspected) exposure to COVID-19; Z79.84 Long term (current) use of oral hypoglycemic drugs; Z79.899 Other long term (current) drug therapy
CPT/HCPCS: 0241U; 36415; 71045; 74177; 80048; 80053; 80307; 81003; 82947; 83036; 83690; 84484; 85025; 85027; 87493; 87507; 93005; 99285; J0131; J1170; J1650; J2270; J2405; J7120; Q9967

== ENCOUNTER → 2023-10-04 21:30 | Outpatient (BNV) | payer MEDICAID, SELFPAY | PROVIDERS: Admitting Provider Surgery; Emergency Provider Internal Medicine; Visit Provider Internal Medicine Cardiovascular Disease | DX: R10.9 Unspecified abdominal pain (principal) | CPT/HCPCS: 93010 ==

== ENCOUNTER → 2023-10-05 02:19 | Outpatient (BNV) | payer MEDICAID, SELFPAY | PROVIDERS: Admitting Provider Surgery; Emergency Provider Internal Medicine; Visit Provider Physician Assistant Medical | DX: K56.609 Unspecified intestinal obstruction, unspecified as to partial versus complete obstruction (principal); E11.9 Type 2 diabetes mellitus without complications; I10 Essential (primary) hypertension | CPT/HCPCS: 99222; 99232 ==

== ENCOUNTER → 2023-10-05 02:19 | Outpatient (BNV) | payer MEDICAID, SELFPAY | PROVIDERS: Admitting Provider Surgery; Emergency Provider Internal Medicine; Visit Provider Surgery | DX: K56.609 Unspecified intestinal obstruction, unspecified as to partial versus complete obstruction (principal) | CPT/HCPCS: 99222; 99231; 99232; 99238; 99499 ==

== ENCOUNTER 2023-10-11 15:08 | Emergency (ER) | payer MEDICAID, SELFPAY | END 2023-10-11 17:05 | disposition left against medical advice (07) | PROVIDERS: Emergency Provider Emergency Medicine | DX: Z53.21 Procedure and treatment not carried out due to patient leaving prior to being seen by health care provider (principal); K57.92 Diverticulitis of intestine, part unspecified, without perforation or abscess without bleeding ==

== ENCOUNTER 2023-10-12 09:34 | Inpatient (IN) | payer MEDICAID, SELFPAY ==
--- NOTE | ~2023-10-12 | CT_ITS ---
EXAMINATION: CT ABDOMEN AND PELVIS WITH CONTRAST CLINICAL INFORMATION: Severe abdominal pain, recent small bowel obstruction COMPARISON: CT abdomen and pelvis 10/06/2023 TECHNIQUE: Multidetector volumetric images were obtained from the superior aspect of the liver through the pubic symphysis following administration 85 mL of Omnipaque 350 intravenous contrast. Sagittal and coronal reformatted images were obtained on the technologist's workstation. Oral contrast: No This CT examination was performed using dose optimization techniques as appropriate, variously including the following: *Automated exposure control *Adjustment of mA and/or kV according to patient size (this includes techniques or standardized protocols for targeted exams where dose is matched to indication/reason for exam; i.e. extremities or head) *Use of iterative reconstruction technique DLP: 975 mGy-cm FINDINGS: LUNG BASES: The heart were normal appendix. ABDOMINAL AND PELVIC WALL: Unremarkable. LIVER AND BILIARY TREE: Unremarkable. GALLBLADDER: Unremarkable. PANCREAS: Unremarkable. SPLEEN: Unremarkable. ADRENAL GLANDS: Unremarkable. KIDNEYS AND URETERS: There are new wedge-shaped focal regions of hypoenhancement in the left kidney suspicious for pyelonephritis. GASTROINTESTINAL TRACT: Colonic diverticulosis without evidence of diverticulitis. The multiple newly dilated loops of stacked and fluid filled small bowel measuring up to 4.4 cm with fecalization of the bowel and which transitions to decompressed bowel in the left upper quadrant, 5:59 where there are several distal thick walled loops of small bowel at the level of the transition in the jejunum. There is edema and engorgement of the mesenteric vessels. No pneumatosis or portal venous gas. VASCULAR: Unremarkable. LYMPH NODES/PERITONEUM: No lymphadenopathy. FREE FLUID: Small volume ascites. BLADDER: Unremarkable. PELVIC VISCERA: Unremarkable. OSSEOUS STRUCTURES: Transitional lumbosacral anatomy with a broad-based bilateral L5 transverse processes pseudoarticulating with the sacrum. CT/CT abdomen pelvis w IV con IMPRESSION: 1. The multiple newly dilated loops of stacked and fluid filled small bowel with fecalization of the bowel and which transitions to decompressed bowel in the left upper quadrant the level of the jejunum suspicious for small bowel obstruction with bowel wall thickening involving the loops of bowel distal to the point of the obstruction. There is edema and engorgement of the mesenteric vessels and small volume ascites. No pneumatosis or portal venous gas. 2. There are new wedge-shaped focal regions of hypoenhancement in the left kidney suspicious for pyelonephritis. Impression [address] Garrido by telephone at 10/12/2023 6:01 PM and it was ascertained that the content and urgency of the report was understood at the time of direct communication.
--- NOTE | ~2023-10-12 | FL_ITS ---
EXAMINATION: FL SMALL BOWEL SERIES CLINICAL INFORMATION: As per CT from 10/12/2023, evaluate moderate grade small bowel obstruction. COMPARISON: No prior fluoroscopy study. CT examination 10/12/2023 with IV contrast. TECHNIQUE: Following a spring repairer helper hand image of the abdomen, contrast was administered orally, and interval abdominal radiographs were performed to assess for contrast progression through the small bowel. 80% Gastroview was utilized for the examination. FINDINGS: Access Clerk image of the abdomen demonstrates a normal bowel gas pattern. No persistent focally dilated loops are identified within the abdomen or pelvis. No organomegaly or abnormal calcifications. Bony structures appear normal aside from transitional lumbar anatomy, with a partially sacralized L5 vertebral body lung bases are clear aside from minimal retrocardial linear atelectasis. Heart size is normal. 30 minute image demonstrates contrast pooling within the fundus of the stomach. Contrast is also progressed into the proximal small bowel/jejunum, which is nondilated and demonstrates a normal fold pattern. 90 minute image demonstrates contrast has progressed through the small bowel into the descending colon. There are no dilated loops of small bowel, and both the proximal and distal small bowel have normal mucosal patterns. The terminal ileum is visualized to some degree and appears normal. A normal appendix fills with contrast. Again, contrast does remain pooled in the fundus of the stomach from later administered oral contrast. FLUOROSCOPY TIME: No fluoroscopy was utilized. Only overhead radiographs were taken. FL/FL small bowel follow through IMPRESSION: Normal small bowel series. No persistent small bowel obstruction.
[2023-10-12 09:46] VITALS: BP 128/86; PULSE 92; O2SAT 97
[2023-10-12 09:55] VITALS: BP 118/79; PULSE 95; RESP 19; TEMP 36.6; O2SAT 98; BMI 33.0
[2023-10-12 10:28] LABS: MANUAL DIFF FLAG NO
[2023-10-12 10:31] LABS: Basophils Absolute Auto 0.1 X10*3/uL (0.0-0.2); Basophils Percent Auto 0.6 % (0-2); Eosinophils Absolute Auto 0.2 X10*3/uL (0.0-0.4); Eosinophils Percent Auto 1.2 % (0-4); Hematocrit 48.2 % (42.0-52.0); Hemoglobin 16.5 g/dl (14.0-18.0); Imm Gran Abs Auto 0.04 X10*3/uL (0.00-0.03); Imm Gran Pct Auto 0.3 % (0.0-0.4); Lymphocytes Absolute Auto 2.9 X10*3/uL (1.2-4.9); Lymphocytes Percent Auto 23.4 % (20-40); Mean Corpuscular HGB Conc 34.2 g/dl (31.0-36.0); Mean Corpuscular Hemoglobin 29.5 pg (27.0-33.0); Mean Corpuscular Volume 86.2 fL (80.0-98.0); Mean Platelet Volume 10.2 fL (9.4-12.4); Monocytes Absolute Auto 0.8 X10*3/uL (0.1-1.2); Monocytes Percent Auto 6.8 % (2-11); Neutrophils Absolute Auto 8.4 x10*3/uL (2.0-8.3); Neutrophils Percent Auto 67.7 % (45-73); Platelet Count 319 X10*3/uL (160-400); Red Blood Count 5.59 X10*6/uL (4.60-5.80); Red Cell Distribution Width 11.8 % (11.0-16.0); White Blood Count 12.4 X10*3/uL (4.8-10.8)
[2023-10-12 10:47] LABS: Alanine Aminotransferase 16 U/L (0-40); Albumin Level 4.4 g/dL (3.5-5.0); Alkaline Phosphatase 97 U/L (39-117); Anion Gap 13 (12-20); Aspartate Amino Transferase 10 U/L (5-37); Bilirubin Direct 0.2 mg/dL (0.0-0.5); Bilirubin Total 0.5 mg/dL (0.0-1.0); Blood Urea Nitrogen 19 mg/dL (9-16); Calcium 9.5 mg/dL (8.4-10.2); Carbon Dioxide 21 mmol/L (22-29); Chloride 107 mmol/L (96-108); Estimated Glomerular Filt Rate > 60; Glucose Random 188 mg/dL (60-115); Lipase 19 U/L (8-78); Potassium 4.4 mmol/L (3.3-5.1); Sodium 137 mmol/L (135-145)
--- NOTE | 2023-10-12 13:04 | ED_ITS ---
HPI - Abdominal Pain General Chief Complaint: Abdominal Pain Stated Complaint: ABD PAIN Time Seen by Provider: 10/12/23 13:00 Source: patient and old records reviewed Mode of arrival: ambulatory Limitations: no limitations History of Present Illness HPI narrative: 38 yo male with PMH of HTN, DM, PTSD just admitted here 10/04-10/09 for PSBO improved with NG tube and fluids/rest back here again with c/o return of pain and n/v leaking liquids from his rectum after eating grilled chicken and an orange last night. States he has not passed flatus. He has intense pain and vomiting. He feels worse than his original admit. He has not had prior surgery. He smokes occasioally , drinks occasionally and snorts cocaine once a month. MD elicited complaint: abdominal pain Pertinent past history: other (recent SBO) Onset (ago): day(s) (last night) Pain Consistency: constant Location: epigastric and periumbilical Severity: moderate Quality: cramping and fullness Radiation: none Migration to: no migration Exacerbating factors: eating Relieving factors: nothing Context: history of similar episodes Associated symptoms: nausea and vomiting Related Data Home Medications ?Medication ?Instructions ?Recorded ?Confirmed omeprazole 20 mg capsule,delayed 20 mg PO DAILY PRN Acid Reflux 10/05/23 10/05/23 release Previous Rx's ?Medication ?Instructions ?Recorded lisinopril 10 mg tablet 10 mg PO DAILY #30 tabs 10/10/23 Allergies Allergy/AdvReac Type Severity Reaction Status Date / Time amoxicillin [AMOXICILLIN] Allergy Unknown ANAPHYLAXIS Verified 10/12/23 09:58 bee pollen [BEE STINGS] Allergy Unknown ANAPHYLAXIS Verified 10/12/23 09:58 tizanidine Allergy Hives Verified 10/12/23 09:58 Review of Systems Review of Systems Constitutional : No Weight loss, No Fever, No Chills ENT/Mouth : No sore throat, No Rhinorrhea Eyes: No Swelling, No Redness Cardiovascular : No Chest Pain, No SOB, NoEdema Respiratory : No Cough, No Sputum, No Wheezing Gastrointestinal : Positive Nausea, Positive Vomiting, positive Diarrhea, positive abdominal Pain, No Hematochezia, No Melena Genitourinary : No Dysuria, No Urinary Frequency, No Hematuria, No Urgency Musculoskeletal : No joint pain, No Myalgias, No Joint Swelling Skin : No Skin Lesions, No rash Neuro : No Weakness, No Numbness, No Dizziness, No Headache All other systems reviewed and are negative. [facility] Past Medical History Attestation statement: The following information was validated with the patient. Source: old records reviewed Medical History Diabetes type 2, controlled Family History Family History (Updated 10/05/23 @ 14:43 by RICHARD Garcia) Other CAD (coronary artery disease) Social History Social History Household Members: None Housing: Apartment Do you presently have visiting nurse or other home services: No Alcohol intake: current Alcohol intake frequency: 3 or more drinks per day Alcohol type: beer and hard liquor Patient Tobacco Use Status: Current everyday Tobacco user Cigarettes Per Day: 20 Substance Use Type: Amphetamines, Crack/Cocaine and Marijuana Advance Directives: No service: No Physical Exam ED Vital Signs: Vital Signs - 24 hr 10/12/23 09:55 Temperature 98 F Pulse Rate 95 Respiratory Rate 19 Blood Pressure 118/79 Pulse Oximetry 98 Oxygen Delivery Method Room Air BMI result Body Mass Index 33.0 Appearance: Alert. Oriented X3. No acute distress. Eyes: Pupils equal, round and reactive to light. ENT: Pharynx normal. Neck: Normal inspection. Neck supple. CVS: Normal heart rate and rhythm. Pulses normal. Respiratory: No respiratory distress. Breath sounds normal. Abdomen: Soft and mild periumbilical ttp no rebound or guarding Skin: Skin warm and dry. Normal skin color. Normal skin turgor. Extremities: No lower extremity edema. No calf ttp Neuro: Oriented X 3. No motor deficit. No sensory deficit. Medical Decision Making Medical Decision Making [facility] Narrative: 38 yo male with HTN, DM, just seen here for PSBO 10/04-10/09 at this time presents again with nausea loose stools and lack of flatus at this time will need basic labs, CT scan to evaluate for recurrent PSBO, IV dilaudid for pain ordered. Differential Diagnosis Differential Diagnoses: The differential diagnosis associated with the presentation includes colitis, diverticulitis, PSBO, enteritis Admission/Observation Consideration of admission/observation: Escalation of care including admission/observation considered admit for further management Consult Healthcare Provider Management of the patient was discussed with: [employer] Specialist (Dr. Jones to admit patient) Lab Data MDM Lab Attestation statement: I reviewed the patient's lab results. 10/12/23 10:13 10/12/23 10:13 Labs: Lab Results 10/12/23 Range/Units 10:13 WBC 12.4 H (4.8-10.8) X10*3/uL RBC 5.59 D (4.60-5.80) X10*6/uL Hgb 16.5 D (14.0-18.0) g/dl Hct 48.2 D (42.0-52.0) % MCV 86.2 (80.0-98.0) fL MCH 29.5 (27.0-33.0) pg MCHC 34.2 (31.0-36.0) g/dl RDW 11.8 (11.0-16.0) % Plt Count 319 D (160-400) X10*3/uL MPV 10.2 (9.4-12.4) fL Immature Gran % (Auto) 0.3 (0.0-0.4) % Neut % (Auto) 67.7 (45-73) % Lymph % (Auto) 23.4 (20-40) % Scurry % (Auto) 6.8 (2-11) % Eos % (Auto) 1.2 (0-4) % Baso % (Auto) 0.6 (0-2) % Lymph # (Auto) 2.9 (1.2-4.9) X10*3/uL Scurry # (Auto) 0.8 (0.1-1.2) X10*3/uL Eos # (Auto) 0.2 (0.0-0.4) X10*3/uL Baso # (Auto) 0.1 (0.0-0.2) X10*3/uL Abs Immat Gran (auto) 0.04 H (0.00-0.03) X10*3/uL Absolute Neuts (auto) 8.4 H (2.0-8.3) x10*3/uL Absolute Nucleated RBC 0.000 (0.0-0.012) X10*3/uL Nucleated RBC % (auto) 0.0 (0.0-0.2) /100WBC Sodium 137 (135-145) mmol/L Potassium 4.4 (3.3-5.1) mmol/L Chloride 107 (96-108) mmol/L Carbon Dioxide 21 L (22-29) mmol/L Anion Gap 13 (12-20) BUN 19 H (9-16) mg/dL Creatinine 0.95 (0.5-1.4) mg/dL Estim Creat Clear Calc 125.0 Estimated GFR > 60 Random Glucose 188 H (60-115) mg/dL Calcium 9.5 D (8.4-10.2) mg/dL Total Bilirubin 0.5 (0.0-1.0) mg/dL Direct Bilirubin 0.2 (0.0-0.5) mg/dL AST 10 (5-37) U/L ALT 16 (0-40) U/L Alkaline Phosphatase 97 (39-117) U/L Total Protein 8.0 (6.5-8.0) g/dL Albumin 4.4 (3.5-5.0) g/dL Lipase 19 (8-78) U/L Independent Interpretation I performed an independent interpretation of an: CT Scan (dilated loops of small bowel looks worse from prior CT scans) Radiology Impression Discussion of test interpretation with radiology: I have reviewed the radiologist's reading. External Record Review External record reviewed: Inpatient record Medications Administered Discontinued Medications Generic Name Dose Route Start Last Admin Trade Name Freq PRN Reason Stop Dose Admin Sodium Chloride 1,000 mls @ 999 mls/hr 10/12/23 13:15 10/12/23 14:19 Ns IVCONT 10/12/23 14:15 999 mls/hr .Q1H1M MARY Administration Iohexol 100 ml 10/12/23 15:12 10/12/23 15:12 Iohexol 350 Mg/Ml 100 Ml Infus..Btl IV 10/12/23 15:13 85 ml ONCE ONE Administration Ondansetron HCl 4 mg 10/12/23 13:14 10/12/23 14:19 Ondansetron Hcl 4 Mg/2 Ml Vial IVPUSH 10/12/23 13:15 4 mg ONCE ONE Administration Discharge Plan Discharge Clinical Impression: Abdominal pain Qualifiers: Abdominal location: generalized Qualified Code(s): R10.84 - Generalized abdominal pain Nausea & vomiting Qualifiers: Vomiting type: unspecified Qualified Code(s): R11.2 - Nausea with vomiting, unspecified Patient Disposition: Admitted As Inpatient Prescriptions: No Action omeprazole 20 mg Capsule,Delayed Release(Dr/Ec) 20 mg PO DAILY PRN (Reason: Acid Reflux) lisinopril 10 mg Tablet 10 mg PO DAILY Qty: 30 1RF Protocol: Hold for SBP< HOLD for SBP < : 90 Print Language: [place]
[2023-10-12] MEDS: 0.9 % Sodium Chloride 1,000 ML 999 ML IVCONT (14:19)
[2023-10-12] MEDS: ondansetron HCL 4 MG/2 ML VIAL IVPUSH (14:19)
[2023-10-12] MEDS: iohexoL 350 MG/ML 100 ML INFUS..BTL IV (15:12)
[2023-10-12] MEDS: Lactated Ringers 1,000 ML 100 ML IVCONT (15:51)
[2023-10-12] MEDS: HYDROmorphone HCl 1 MG/ML SYRINGE IVPUSH (15:51)
[2023-10-12 16:11] VITALS: BP 127/71; PULSE 76; RESP 14; TEMP 36.3; O2SAT 96
--- NOTE | 2023-10-12 16:21 | PHA.MEDREC ---
Pharmacy Consult ? Medication Reconciliation Pharmacy has completed the medication reconciliation. Patient just discharged 10/09 from [facility], utilized discharge summary for med rec. Kelly Isaac, JesúsD
--- NOTE | 2023-10-12 16:48 | P.HPGS_ITS ---
History of Present Illness History of Present Illness Date of Service: 10/17/23 Chief complaint: Abdominal Pain Narrative: Boston Rubin is a 38 year old male here in the ER for abdominal pain. He was actually admitted last October 05, [address] Florez for abdominal pain with a CAT scan showing dilated small bowel loops. He has a question of small-bowel obstruction. He was sent for repeat CT scan with oral contrast on October 05 which showed contrast to be flowing through without evidence of obstruction. His NG tube was removed at that time. He was started on clear liquids and this was slowly advanced. However, he describes some bloating on Monday so we held off on his discharge. This resolved and was discharged home with resolution of symptoms last October 10, 2023. He says that he had been doing well at home until yesterday he started to have some mild abdominal pain which persisted and seemed to be worse last night. He denies vomiting. He did have some loose stools which he says he has had also last week He therefore came back to the ER this morning. He currently says that he still has abdominal pain although better. He says this is not severe at this time. He has no previous abdominal surgery. Review of Systems Constitutional: Constitutional: Denies chills and Denies fever(s) Cardiovascular: Cardiovascular: Denies chest pain, Denies dyspnea and Denies dyspnea on exertion Respiratory: Respiratory: Denies cough, Denies dyspnea and Denies dyspnea on exertion Gastrointestinal: Gastrointestinal: Denies hematochezia and Denies change in bowel habits Genitourinary: Genitourinary: Denies hematuria and Denies difficulty urinating Musculoskeletal: Musculoskeletal: Denies back pain and Denies limited range of motion Neurologic: Denies focal weakness and Denies convulsions Psychiatric: Psychiatric: Denies depression and Denies mood swings [facility] Past Medical History Medical History Diabetes type 2, controlled Family History Family History Other CAD (coronary artery disease) Social History Social History Household Members: None Housing: Apartment Do you presently have visiting nurse or other home services: No Alcohol intake: current Alcohol intake frequency: a few times a month Alcohol type: beer Patient Tobacco Use Status: Current everyday Tobacco user Cigarette Packs Per Day: 1.5 Cigarettes Per Day: 30.0 Second Hand Smoke Exposure: No Substance Use Type: Crack/Cocaine and Marijuana service: No Meds Allergies Allergy/AdvReac Type Severity Reaction Status Date / Time amoxicillin [AMOXICILLIN] Allergy Unknown ANAPHYLAXIS Verified 10/12/23 09:58 bee pollen [BEE STINGS] Allergy Unknown ANAPHYLAXIS Verified 10/12/23 09:58 tizanidine Allergy Hives Verified 10/12/23 09:58 Active Medications: Current Medications Lactated Ringer's (Lr) 1,000 mls @ 100 mls/hr IVCONT .Q10H [facility] Last Admin: 10/12/23 15:51 Dose: 100 mls/hr Home Medications ?Medication ?Instructions ?Recorded ?Confirmed ?Last Taken ?Type omeprazole 20 mg capsule,delayed 20 mg PO DAILY PRN Acid Reflux 10/05/23 10/12/23 10/03/23 History release Physical Exam Vital Signs: Vital Signs: Last Vital Signs Temp 97.4 F 10/12/23 16:11 Pulse 76 10/12/23 16:11 Resp 14 10/12/23 16:11 BP 127/71 10/12/23 16:11 Pulse Ox 96 10/12/23 16:11 O2 Del Method Room Air 10/12/23 16:11 BMI result Body Mass Index 33.0 Results Results Labs: Short CBC 10/12/23 Range/Units 10:13 WBC 12.4 H (4.8-10.8) X10*3/uL Hgb 16.5 D (14.0-18.0) g/dl Hct 48.2 D (42.0-52.0) % Plt Count 319 D (160-400) X10*3/uL BMP 10/12/23 10:13 Sodium 137 Potassium 4.4 Chloride 107 Carbon Dioxide 21 L BUN 19 H Creatinine 0.95 Calcium 9.5 D Liver Function 10/12/23 Range/Units 10:13 Total Bilirubin 0.5 (0.0-1.0) mg/dL Direct Bilirubin 0.2 (0.0-0.5) mg/dL AST 10 (5-37) U/L ALT 16 (0-40) U/L Alkaline Phosphatase 97 (39-117) U/L Albumin 4.4 (3.5-5.0) g/dL Abdomen CT scan report/results: image reviewed CT scan - pelvis: image reviewed Assessment and Plan (1) Abdominal pain: Qualifiers: Abdominal location: generalized Qualified Code(s): R10.84 - Generalized abdominal pain Status: Acute I have reviewed his CAT scan and this again reveals some dilated small bowel loops. He does have good amounts of air in the colon. There was no obvious transition point. There has no significant inflammatory process I am uncertain as to the etiology of his abdominal pain. Review of his CT scan does not suggest any internal hernia I will send him for a small bowel series tomorrow. I will also do a C diff study and stool cultures Otherwise, he has a benign abdominal exam. Except for some leukocytosis, the rest of his lab workup seems unremarkable. Quality Stroke Does the patient have a stroke diagnosis?: No VTE Prior VTE?: No VTE Risk Level:: Medical - low VTE Device Contraindication: Treatment Not Indicated VTE Drug Contraindication: Treatment Not Indicated Procedures Date of Service Date of Service: 10/17/23
[2023-10-12 18:28] VITALS: BP 126/68; PULSE 64; RESP 14; TEMP 36.2; O2SAT 97
[2023-10-12 18:57] LABS: Amphetamine Screen Urine Not Detected (Not Detect); Barbiturates, Urine Not Detected (Not Detect); Benzodiazepines Screen Urine Not Detected (Not Detect); Cannabinoid Screen Urine POSITIVE (Not Detect); Cocaine Screen Urine POSITIVE (Not Detect); Fentanyl, urine Not Detected (Not Detect); Opiate Screen Urine Not Detected (Not Detect); Phencyclidine Screen Urine Not Detected (Not Detect)
--- NOTE | 2023-10-12 19:01 | HO.PM.IMCN ---
History of Present Illness Data of Consult Service Date: 10/12/23 Primary Care Provider: Unknown Physician HPI Reason for consult: Medical management Patient is a 38-year-old male with a PMH significant for hre-yxgzpdk-eizohnohg type 2 diabetes and HTN who re-presented to the ED for evaluation of abdominal pain and diarrhea who was admitted under general surgery services for concern of SBO. Hospitalist consult medical management. Pt initially was hospitalized from 10/03-10/09 for question of SBO. Initially had NGT placed and was treated conservatively. Initially did well first day of discharge, but pain and diarrhea returned yesterday and worsened this morning which prompted return visit to the ED. Repeat CT of abd/pelvis shows multiple dilated bowel loops suspicious for SBO. Pt states has had 8-9 episodes of non-bloody diarrhea since being in the ED. Reports pain is creeping back up, now a 7/10. Pain initially started in LUQ but now more diffuse throughout upper abdomen. Some nausea but no vomiting. Has been passing gas. Denies abdominal bloating. No chest pain/pressure, palpitations. Denies SOB. Reports has been compliant with lisinopril at home but has yet to see PCP to restart diabetes medications. Review of Systems Review of Systems: Abdominal pain Diarrhea Nausea, no vomiting Has been passing gas Denies bloating/distention No chest pain/pressure, palpitations PMFSH Medical History Diabetes type 2, controlled Family History Other CAD (coronary artery disease) Social History Household Members: None Housing: Apartment Do you presently have visiting nurse or other home services: No Alcohol intake: current Alcohol intake frequency: a few times a month Alcohol type: beer Patient Tobacco Use Status: Current everyday Tobacco user Cigarettes Per Day: 20 Substance Use Type: Crack/Cocaine and Marijuana service: No Meds Allergies Allergy/AdvReac Type Severity Reaction Status Date / Time amoxicillin [AMOXICILLIN] Allergy Unknown ANAPHYLAXIS Verified 10/12/23 09:58 bee pollen [BEE STINGS] Allergy Unknown ANAPHYLAXIS Verified 10/12/23 09:58 tizanidine Allergy Hives Verified 10/12/23 09:58 Active Medications: Current Medications Lactated Ringer's (Lr) 1,000 mls @ 100 mls/hr IVCONT .Q10H [facility] Last Admin: 10/12/23 15:51 Dose: 100 mls/hr Lisinopril (Lisinopril 10 Mg Tablet) 10 mg PO DAILY [facility]; Protocol Morphine Sulfate (Morphine Sulfate 4 Mg/Ml Cartridge) 2 mg IVPUSH Q3H PRN; Protocol PRN Reason: Pain, Severe (Pain Scale 7-10) Omeprazole (Omeprazole 20 Mg Capsule.Dr) 20 mg PO DAILY PRN PRN Reason: Acid Reflux Ondansetron HCl (Ondansetron Hcl 4 Mg/2 Ml Vial) 4 mg IVPUSH Q6H PRN PRN Reason: nausea Sodium Chloride (0.9 % Sodium Chloride Flush 3 Ml Syringe) 3 ml IVFLUSH QSHIFT [facility] Home Medications ?Medication ?Instructions ?Recorded ?Confirmed ?Last Taken ?Type omeprazole 20 mg capsule,delayed 20 mg PO DAILY PRN Acid Reflux 10/05/23 10/12/23 10/03/23 History release Physical Exam Vital Signs and Narrative: Vital Signs: Last Vital Signs Temp 97.1 F 10/12/23 18:28 Pulse 64 10/12/23 18:28 Resp 14 10/12/23 18:28 BP 126/68 10/12/23 18:28 Pulse Ox 97 10/12/23 18:28 O2 Del Method Room Air 10/12/23 18:28 BMI result Body Mass Index 33.0 General: AOx3, no acute distress Resp: CTA bilaterally CVS: S1, S2, RRR GI: Hyperactive bowel sounds, diffuse upper abd tenderness, no distention Skin: Warm, dry Neuro: Cranial nerves II-XII grossly intact bilaterally. Motor grossly intact bilaterally Extremities: No edema Psych: Appropriate affect Results Labs 10/12/23 10:13 10/12/23 10:13 Labs: Laboratory Results - last 24 hr 10/12/23 10/12/23 10:13 18:43 MCV 86.2 MCH 29.5 MCHC 34.2 RDW 11.8 Plt Count 319 D MPV 10.2 Immature Gran % (Auto) 0.3 Neut % (Auto) 67.7 Lymph % (Auto) 23.4 Emanuel % (Auto) 6.8 Eos % (Auto) 1.2 Baso % (Auto) 0.6 Lymph # (Auto) 2.9 Emanuel # (Auto) 0.8 Eos # (Auto) 0.2 Baso # (Auto) 0.1 Abs Immat Gran (auto) 0.04 H Absolute Neuts (auto) 8.4 H Absolute Nucleated RBC 0.000 Nucleated RBC % (auto) 0.0 Anion Gap 13 Estim Creat Clear Calc 125.0 Estimated GFR > 60 Random Glucose 188 H Calcium 9.5 D Total Bilirubin 0.5 Direct Bilirubin 0.2 AST 10 ALT 16 Alkaline Phosphatase 97 Total Protein 8.0 Albumin 4.4 Lipase 19 Urine Opiates Screen Not Detected Urine Fentanyl Screen Not Detected Ur Barbiturates Screen Not Detected Ur Phencyclidine Scrn Not Detected Ur Amphetamines Screen Not Detected U Benzodiazepines Scrn Not Detected Urine Cocaine Screen POSITIVE H U Marijuana (THC) Screen POSITIVE H Imaging Radiologist's Impressions: Impressions Abdomen/Pelvis CT 10/12/23 15:13 IMPRESSION: 1. The multiple newly dilated loops of stacked and fluid filled small bowel with fecalization of the bowel and which transitions to decompressed bowel in the left upper quadrant the level of the jejunum suspicious for small bowel obstruction with bowel wall thickening involving the loops of bowel distal to the point of the obstruction. There is edema and engorgement of the mesenteric vessels and small volume ascites. No pneumatosis or portal venous gas. 2. There are new wedge-shaped focal regions of hypoenhancement in the left kidney suspicious for pyelonephritis. Imp[address] Garrido by telephone at 10/12/2023 6:01 PM and it was ascertained that the content and urgency of the report was understood at the time of direct communication. Assessment and Plan (1) Abdominal pain: Qualifiers: Abdominal location: generalized Qualified Code(s): R10.84 - Generalized abdominal pain Status: Acute Plan Patient is a 38-year-old male with a PMH significant for wku-xamgodi-pfregrqkh type 2 diabetes and HTN who re-presented to the ED for evaluation of abdominal pain and diarrhea who was admitted under general surgery services for concern of SBO. Hospitalist consult for medical management. Question of small-bowel obstruction Plan as per General surgery Will get small bowel series tomorrow C diff negative GI panel pending Fvj-dlyrzkz-lbvsqdnpr type 2 diabetes Has been noncompliant with metformin for several years A1c 7.1 on 10/06/2023 Patient NPO, will hold on sliding scale insulin for now Follow POC, cover with SSI sugars remain elevated once diet resumes HTN BP well controlled with current therapies Continue lisinopril Tobacco dependence Smoking cessation counseled NRT Thank you for allowing us to participate in the care of this patient. Will continue following along with you.
[2023-10-12] MEDS: Morphine Sulfate 4 MG/ML CARTRIDGE 2 MG IVPUSH ×2 (19:26→22:29)
[2023-10-12 19:36] LABS: CDiff Gene PCR NEGATIVE (Negative)
[2023-10-12] MEDS: Nicotine 7 MG PATCH.TD24 TRANSDERMA (19:47)
--- NOTE | 2023-10-12 19:51 | PC.NURSE ---
Assumed care of the pt at 1900. Pt resting in bed at this time, complaining of 7/10 pain in the upper abdomen. Pt medicated with PRN medications. Pt also requesting a nicotine patch which was telephone ordered by Dr Jones. Pt is A&Ox4, GCS 15, on an NPO diet. Pt has no other complaints at this time. Pt is admitted, pending room assignment.
[2023-10-12 20:08] VITALS: BP 127/66; PULSE 62; RESP 16; TEMP 36.6; O2SAT 96
[2023-10-13] VITALS (9 sets, daily range): BP systolic 131–169; BP diastolic 51–83; PULSE 58–65; RESP 14–19; TEMP 36.1–36.6; O2SAT 94–97; BMI 32.9
[2023-10-13] MEDS: Morphine Sulfate 4 MG/ML CARTRIDGE 2 MG IVPUSH ×7 (01:34→21:36)
[2023-10-13] MEDS: Lactated Ringers 1,000 ML 100 ML IVCONT ×3 (01:35→22:17)
[2023-10-13 05:23] LABS: MANUAL DIFF FLAG NO
[2023-10-13 05:28] LABS: Basophils Absolute Auto 0.1 X10*3/uL (0.0-0.2); Basophils Percent Auto 0.6 % (0-2); Eosinophils Absolute Auto 0.2 X10*3/uL (0.0-0.4); Eosinophils Percent Auto 2.1 % (0-4); Hematocrit 41.8 % (42.0-52.0); Hemoglobin 14.2 g/dl (14.0-18.0); Imm Gran Abs Auto 0.02 X10*3/uL (0.00-0.03); Imm Gran Pct Auto 0.2 % (0.0-0.4); Lymphocytes Absolute Auto 3.7 X10*3/uL (1.2-4.9); Lymphocytes Percent Auto 42.5 % (20-40); Mean Corpuscular Hemoglobin 29.9 pg (27.0-33.0); Monocytes Absolute Auto 0.7 X10*3/uL (0.1-1.2); Monocytes Percent Auto 8.4 % (2-11); Neutrophils Percent Auto 46.2 % (45-73); Platelet Count 263 X10*3/uL (160-400); Red Blood Count 4.75 X10*6/uL (4.60-5.80); Red Cell Distribution Width 11.7 % (11.0-16.0); White Blood Count 8.6 X10*3/uL (4.8-10.8)
[2023-10-13 05:44] LABS: Anion Gap 11 (12-20); Blood Urea Nitrogen 11 mg/dL (9-16); Calcium 8.8 mg/dL (8.4-10.2); Carbon Dioxide 22 mmol/L (22-29); Chloride 107 mmol/L (96-108); Creatinine Clr Calc Pharmacy 160.5; Estimated Glomerular Filt Rate > 60; Glucose Random 98 mg/dL (60-115); Sodium 136 mmol/L (135-145)
--- NOTE | 2023-10-13 07:56 | PC.NURSE ---
Resumed careof patient, he is currently resting comfortably, call blanc within reach at this time all needs met.
--- NOTE | 2023-10-13 08:23 | PM.PNGS ---
Subjective Subjective Date of Service: 10/17/23 Interval history: sidney he has some abdominal discomfort passed some flatus no vomitting or diarrhea says he was able to sleep last night Physical Exam Vital Signs: Vital Signs: Last Vital Signs Temp 97.8 F 10/13/23 08:22 Pulse 58 10/13/23 08:22 Resp 18 10/13/23 08:22 BP 131/51 L 10/13/23 08:22 Pulse Ox 97 10/13/23 08:22 O2 Del Method Room Air 10/13/23 08:22 BMI result Body Mass Index 33.0 Const: General: comfortable and no acute distress Orientation/consciousness: patient oriented x3 Neck: Neck: Yes no lymphadenopathy Resp: Auscultation: clear to auscultation bilaterally Cardio: Rhythm: regular rhythm GI: Other: some mild diffuse tenderness Palpation (GI): Soft to palpation, Tenderness to palpation present (GI) and no guarding Neuro: General: patient oriented x3 Objective Data Active Medications Lactated Ringer's (Lr) 1,000 mls @ 100 mls/hr IVCONT .Q10H [facility] Last Admin: 10/13/23 01:35 Dose: 100 mls/hr Documented By: SUSANNAH Lisinopril (Lisinopril 10 Mg Tablet) 10 mg PO DAILY [facility]; Protocol Morphine Sulfate (Morphine Sulfate 4 Mg/Ml Cartridge) 2 mg IVPUSH Q3H PRN; Protocol PRN Reason: Pain, Severe (Pain Scale 7-10) Last Admin: 10/13/23 05:33 Dose: 2 mg Documented By: SUSANNAH Omeprazole (Omeprazole 20 Mg Capsule.Dr) 20 mg PO DAILY PRN PRN Reason: Acid Reflux Ondansetron HCl (Ondansetron Hcl 4 Mg/2 Ml Vial) 4 mg IVPUSH Q6H PRN PRN Reason: nausea Sodium Chloride (0.9 % Sodium Chloride Flush 3 Ml Syringe) 3 ml IVFLUSH QSHIFT [facility] Last Admin: 10/13/23 07:57 Dose: Not Given Documented By: JOSE Non-Admin Reason: IV Running Labs 10/13/23 05:14 10/13/23 05:14 Labs: Laboratory Results - last 24 hr 10/12/23 10/12/23 10/13/23 10:13 18:43 05:14 MCV 86.2 88.0 MCH 29.5 29.9 MCHC 34.2 34.0 RDW 11.8 11.7 Plt Count 319 D 263 MPV 10.2 10.0 Immature Gran % (Auto) 0.3 0.2 Neut % (Auto) 67.7 46.2 Lymph % (Auto) 23.4 42.5 H Wagoner % (Auto) 6.8 8.4 Eos % (Auto) 1.2 2.1 Baso % (Auto) 0.6 0.6 Lymph # (Auto) 2.9 3.7 Wagoner # (Auto) 0.8 0.7 Eos # (Auto) 0.2 0.2 Baso # (Auto) 0.1 0.1 Abs Immat Gran (auto) 0.04 H 0.02 Absolute Neuts (auto) 8.4 H 4.0 Absolute Nucleated RBC 0.000 0.000 Nucleated RBC % (auto) 0.0 0.0 Anion Gap 13 11 L Estim Creat Clear Calc 125.0 160.5 Estimated GFR > 60 > 60 Random Glucose 188 H 98 Calcium 9.5 D 8.8 D Total Bilirubin 0.5 Direct Bilirubin 0.2 AST 10 ALT 16 Alkaline Phosphatase 97 Total Protein 8.0 Albumin 4.4 Lipase 19 Urine Opiates Screen Not Detected Urine Fentanyl Screen Not Detected Ur Barbiturates Screen Not Detected Ur Phencyclidine Scrn Not Detected Ur Amphetamines Screen Not Detected U Benzodiazepines Scrn Not Detected Urine Cocaine Screen POSITIVE H U Marijuana (THC) Screen POSITIVE H C. difficile Tox B Gene NEGATIVE Procedures Date of Service Date of Service: 10/17/23 Progress Note: A&P Assessment and plan (1) SBO (small bowel obstruction): Status: Acute Assessment and Plan: CT scan yesterday showing dilated small bowel loops with possible distal collapse Abdomen soft and benign He has had no vomiting Passing flatus Minimal pain today Small bowel series ordered No NG tube for now labs ok Time Spent With Patient Time: Total time managing care of this patient today ____ minutes. Quality Stroke Does the patient have a stroke diagnosis?: No VTE Prior VTE?: No VTE Risk Level:: Medical - low VTE Device Contraindication: N/A - Device Ordered VTE Drug Contraindication: Treatment Not Indicated
[2023-10-13] MEDS: lisinopriL 10 MG TABLET PO (08:41)
[2023-10-13] MEDS: Omeprazole 20 MG CAPSULE.DR PO (08:41)
[2023-10-13 10:02] LABS: Adenovirus F 40/41 Not Detected (Not Detect.); Astrovirus Not Detected (Not Detect.); Campylobacter Not Detected (Not Detect.); Cryptosporidium Not Detected (Not Detect.); Cyclospora cayetanensis Not Detected (Not Detect.); E. coli EAEC Not Detected (Not Detect.); E. coli EPEC Not Detected (Not Detect.); E. coli ETEC Not Detected (Not Detect.); E. coli STEC Not Detected (Not Detect.); Entamoeba histolytica Not Detected (Not Detect.); Giardia lamblia Not Detected (Not Detect.); Norovirus GI/GII Not Detected (Not Detect.); Plesiomonas shigelloides Not Detected (Not Detect.); Rotavirus A Not Detected (Not Detect.); Salmonella Not Detected (Not Detect.); Sapovirus Not Detected (Not Detect.); Shigella sp./EIEC Not Detected (Not Detect.); Vibrio Not Detected (Not Detect.); Vibrio Cholerae Not Detected (Not Detect.); Yersinia enterocolitica Not Detected (Not Detect.)
--- NOTE | 2023-10-13 14:05 | MHC.CM.PN ---
Patient states that he lives alone. He named his mother as HCP. A copy has been scanned into EMR. He is independent with all functional mobility. His PCP is from [facility]. A task has been sent to update. DP home self care. Patient will take the shuttle home or walk.
--- NOTE | 2023-10-13 14:26 | P.PNIM_ITS ---
Subjective Subjective Date of Service: 10/13/23 Interval History: seen and examined this morning follow up for medical consultation still reporting abdominal pain, was having diarrhea, improving no fever or chills Review of Systems Review of Systems: Yes all other systems are reviewed and are negative Constitutional Constitutional: Denies chills and Denies fever(s) Cardiovascular Cardiovascular: Denies chest pain, Denies palpitations and Denies dyspnea Respiratory Respiratory: Denies cough and Denies dyspnea Gastrointestinal Gastrointestinal: Reports abdominal pain, Reports diarrhea and Reports nausea Endocrine Endocrine: Denies palpitations Physical Exam 2 Vital Signs: Vital Signs: Last Vital Signs Temp 97.0 F 10/13/23 11:17 Pulse 63 10/13/23 11:17 Resp 18 10/13/23 11:17 BP 169/83 H 10/13/23 11:17 Pulse Ox 97 10/13/23 11:17 O2 Del Method Room Air 10/13/23 11:17 BMI result Body Mass Index 32.9 Const: General: comfortable, no acute distress, alert and awake O rientation/consciousness: patient oriented x3 Neck: Neck: Yes no lymphadenopathy Resp: Effort & Inspection: normal respiratory effort, able to speak in complete sentences, no respiratory distress and no use of accessory muscles A uscultation: clear to auscultation bilaterally Cardio: Rhythm: regular rhythm GI: Other: mild diffuse tenderness; soft, no guarding Palpation (GI): Soft to palpation, Tenderness to palpation present (GI) and no guarding Neuro: General: patient oriented x3, moves all extremities and CN's II-XI intact bilaterally Extrem: General: Yes no pedal edema Objective Data Active Medications Famotidine (Famotidine/Pf 20 Mg/2 Ml Vial) 20 mg IVPUSH DAILY [facility] Lactated Ringer's (Lr) 1,000 mls @ 100 mls/hr IVCONT .Q10H [facility] Last Admin: 10/13/23 13:51 Dose: 100 mls/hr Documented By: COTANTONIETTA Lisinopril (Lisinopril 10 Mg Tablet) 10 mg PO DAILY [facility]; Protocol Last Admin: 10/13/23 08:41 Dose: 10 mg Documented By: JOSE Morphine Sulfate (Morphine Sulfate 4 Mg/Ml Cartridge) 2 mg IVPUSH Q3H PRN; Protocol PRN Reason: Pain, Severe (Pain Scale 7-10) Last Admin: 10/13/23 11:47 Dose: 2 mg Documented By: BRENDANM Ondansetron HCl (Ondansetron Hcl 4 Mg/2 Ml Vial) 4 mg IVPUSH Q6H PRN PRN Reason: nausea Sodium Chloride (0.9 % Sodium Chloride Flush 3 Ml Syringe) 3 ml IVFLUSH QSHIFT [facility] Last Admin: 10/13/23 14:17 Dose: Not Given Documented By: COTEMA Non-Admin Reason: IV Running Labs 10/13/23 05:14 10/13/23 05:14 Labs: Laboratory Results - last 24 hr 10/12/23 10/13/23 18:43 05:14 MCV 88.0 MCH 29.9 MCHC 34.0 RDW 11.7 Plt Count 263 MPV 10.0 Immature Gran % (Auto) 0.2 Neut % (Auto) 46.2 Lymph % (Auto) 42.5 H [place] % (Auto) 8.4 Eos % (Auto) 2.1 Baso % (Auto) 0.6 Lymph # (Auto) 3.7 [place] # (Auto) 0.7 Eos # (Auto) 0.2 Baso # (Auto) 0.1 Abs Immat Gran (auto) 0.02 Absolute Neuts (auto) 4.0 Absolute Nucleated RBC 0.000 Nucleated RBC % (auto) 0.0 Anion Gap 11 L Estim Creat Clear Calc 160.5 Estimated GFR > 60 Random Glucose 98 Calcium 8.8 D Stl C. cayetanensis PCR Not Detected Stool Rotavirus A PCR Not Detected Stl Adenov F 40/41 PCR Not Detected Stool Astrovirus (PCR) Not Detected Stool Campylobacter PCR Not Detected Stool Cryptosporidium PCR Not Detected Stl Sh Tox Pr E STEC PCR Not Detected Stool E coli O157 PCR Not applicable Stl Enterotoxigenic E PCR Not Detected Stool EPEC (PCR) Not Detected Stool EAEC (PCR) Not Detected Stl E. histolytica PCR Not Detected Stool Giardia Lamblia PCR Not Detected Stl P. shigelloides PCR Not Detected Stool Salmonella PCR Not Detected Stool Sapovirus (PCR) Not Detected Stl Shigella/EIEC PCR Not Detected St Y.enterocolitica PCR Not Detected Stool Vibrio (PCR) Not Detected Stl Vibrio cholerae PCR Not Detected Stl Norovirus GI/GII PCR Not Detected Urine Opiates Screen Not Detected Urine Fentanyl Screen Not Detected Ur Barbiturates Screen Not Detected Ur Phencyclidine Scrn Not Detected Ur Amphetamines Screen Not Detected U Benzodiazepines Scrn Not Detected Urine Cocaine Screen POSITIVE H U Marijuana (THC) Screen POSITIVE H C. difficile Tox B Gene NEGATIVE Assessment and Plan (1) Abdominal pain: Status: Acute Plan This is a 38-year-old male with a PMH significant for nnw-fzxcvge-gvhkqbgjz type 2 diabetes and HTN and recent admission for SBO who returns to the ED with recurrent abdominal pain found to have dilated bowel loops on imaging and concern for recurrent SBO Abdominal pain Question of small-bowel obstruction on imaging; small bowel follow through showing contrast passing through arguing against obstruction C diff negative and GI panel negative again GI consult for other causes of symptoms ?inflammatory bowel disease symptomatic support for now Oau-kthyrel-nhjxdcixj type 2 diabetes Has been noncompliant with metformin for several years A1c 7.1 on 10/06/2023 Patient NPO, will hold on sliding scale insulin for now Follow POC, cover with SSI sugars remain elevated once diet resumes HTN Continue lisinopril Tobacco dependence Smoking cessation counseled NRT Thank you for allowing us to participate in the care of this patient. Will continue following along with you. Quality Stroke Does the patient have a stroke diagnosis?: No VTE Prior VTE?: No VTE Risk Level:: Medical - low VTE Device Contraindication: N/A - Device Ordered VTE Drug Contraindication: Treatment Not Indicated
--- NOTE | 2023-10-13 16:15 | PM.EVENT ---
Event Note Date of Service: 10/17/23 Event Note: passing a lot of diarrhea says oral contrast seems to have gone through no official report yet but SB study shows good amount of air in colon, contrast diluted abd soft, benign, minimal pain GI consulted uncertain at this time of this is obstructive process he is passing flatus and BMs, no vomitting appreciate hospitalist ffup Time Spent With Patient Time: Total time managing care of this patient today ____ minutes.
[2023-10-13 16:29] LABS: Glucose, Whole Blood 105 mg/dL (60-115)
[2023-10-13 20:00] LABS: Glucose, Whole Blood 230 mg/dL (60-115)
[2023-10-13] MEDS: Nicotine 7 MG PATCH.TD24 TRANSDERMA (21:41)
[2023-10-13] MEDS: Melatonin 3 MG TABLET 6 MG PO (22:14)
--- NOTE | 2023-10-13 22:38 | PM.EVENT ---
Event Note Date of Service: 10/13/23 Event Note: GI Consult-Full note dictated. History from patient and EMR Imp: Resolving recurrent SBO of unclear etiology. He presently seems to be improved with passage of gas and stools, less abdominal distention, and a much improved abdominal xray. Other than the acute changes of SBO on his presentations, the imaging studies do not show any other abnormalities such as Crohn's disease, mass, intussusception, volvulus, etc. He may have a congenital adhesion. Rec: Advance diet as tolerated, await final report of the UGI/Small bowel series, and observe. I advised him that if the SBO recurs he would most likely need exploration by Dr. Jones. I don't think any type of endoscopic evaluation would be helpful at this time. D/W patient in detail and he is comfortable with this plan. Thanks Time Spent With Patient Time: Total time managing care of this patient today ____ minutes.
[2023-10-14] MEDS: Morphine Sulfate 4 MG/ML CARTRIDGE 2 MG IVPUSH ×7 (00:40→20:51)
[2023-10-14 03:26] VITALS: BP 147/71; PULSE 60; RESP 16; TEMP 36.1; O2SAT 95
--- NOTE | 2023-10-14 04:36 | CONS_ITS ---
DATE OF SERVICE: 10/13/2023 REASON FOR CONSULTATION: Small-bowel obstruction. HISTORY OF PRESENT ILLNESS: This is a 38-year-old generally healthy male who was admitted for a recurrent small bowel obstruction. The patient had been admitted earlier this month for a similar problem. He was admitted initially on October 04 with what appeared to be a small bowel obstruction based on his imaging studies. This resolved with conservative measures and did not require any type of surgery. However, he did require a nasogastric tube. The patient did improve and was discharged, but returned again yesterday with recurrent symptoms of abdominal distention, abdominal pain, belching, and nausea. Imaging studies again revealed findings consistent with a small bowel obstruction. Over the course of his hospital stay thus far, he has been improving without needing a nasogastric tube. Today, he does feel better with less abdominal distention, passing flatus and some stools, and less nausea and belching. His imaging studies were again consistent with a small bowel obstruction. The patient did have a similar episode back in July with what he thought was food poisoning and for which he did not come to the hospital. That did resolve at home and it has not been bothered since that time up until this month. The patient denies any history of abdominal surgeries nor any other surgery in general. He denies a family history of colorectal cancer. Patient does not use any chronic NSAIDs. MEDICATIONS: At home; lisinopril, omeprazole. PAST MEDICAL HISTORY: He has a history of small-bowel obstruction as above. Avm-ssqdfdt-qxymufewj diabetes mellitus, gastroesophageal reflux. He denies any history of heart disease, stroke, nor lung disease. He denies any surgeries. SOCIAL HISTORY: He is single. He does smoke. He drinks only occasional beer, but described that he has been a heavy drinker in the past. He uses occasional cocaine. FAMILY HISTORY: Noncontributory. REVIEW OF SYSTEMS: CONSTITUTIONAL: He had been feeling well up until the past week or so when he was hospitalized twice for his small bowel obstructions. He describes a previously good appetite. CARDIAC: No chest pain. PULMONARY: No cough or hemoptysis. GI: As above. URINARY: No dysuria, no hematuria. NEUROLOGIC: No headache or seizures. PHYSICAL EXAMINATION: GENERAL: The patient is a pleasant, alert, comfortable appearing male. SKIN: Warm and dry. EYES: Anicteric sclerae. NECK: Supple. CHEST: Clear. CARDIAC: Normal S1, S2. ABDOMEN: Soft, nondistended. Bowel sounds are present. There is some mild tenderness diffusely. There is no mass, rebound, or guarding. LABORATORY DATA: White blood cell count 8.6, hemoglobin 14.2, MCV 88, platelets 162,000. Normal electrolytes. BUN 19, creatinine 0.95. Normal liver profile. Albumin 4.4. Lipase 19. His CT scan of the abdomen and pelvis on this admission again describes findings consistent with a small bowel obstruction with multiple dilated loops of small bowel. The transition point appears to be localized in the jejunum on this occasion. There is no free air. He did have an upper GI small-bowel series today, which appears to show no obstruction of barium to my reading of the film. However, I am still waiting for the official radiology report. IMPRESSION: The etiology of the patient's intermittent small-bowel obstruction is not clear. At the present time, he does appear to have improved again without needing surgery nor even a nasogastric tube on this occasion. He has had no surgeries in regard to possible adhesions, although he may have a congenital adhesion contributing to his symptoms. There is nothing by his history nor imaging studies to suggest something such as Crohn disease, intraabdominal mass, or intussusception. At this point since he is again improving rapidly and without needing any surgery or nasogastric tube, I would continue to observe him and advance his diet as tolerated. The final report of the upper GI and small-bowel series will be checked. If he continues to do well, I would advance his diet as tolerated and then simply observe things as an outpatient. Depending on the final reading of the small bowel series, if there is a suspicion of small bowel pathology, we could then obtain either a magnetic resonance enterography or a small bowel video capsule study. However, if the small-bowel series is described as normal, I would then simply observe him. If this does not occur again, then I do not think he would need any other type of investigation. On the other hand, if he has another small bowel obstruction requiring hospitalization, I would then definitively consider recommending a diagnostic laparoscopy to at least further assess the source of the small bowel obstruction. I do not think any type of endoscopic evaluation would be helpful at this time. This has been discussed in detail with the patient and he is comfortable with the plan. Thank you for the consultation. MD MICHELET Whitaker/EPI / [id number] ANABEL
--- NOTE | 2023-10-14 07:16 | P.PNIM_ITS ---
Subjective Subjective Date of Service: 10/14/23 Interval History: seen and examined this morning follow up for medical consultation still reporting abdominal pain. Passing gas. No n/v. Still NPO no fever or chills Review of Systems Review of Systems: Yes all other systems are reviewed and are negative Constitutional Constitutional: Denies chills and Denies fever(s) Cardiovascular Cardiovascular: Denies chest pain, Denies palpitations and Denies dyspnea Respiratory Respiratory: Denies cough and Denies dyspnea Gastrointestinal Gastrointestinal: Reports abdominal pain, Reports diarrhea and Reports nausea Endocrine Endocrine: Denies palpitations Physical Exam 2 Vital Signs: Vital Signs: Last Vital Signs Temp 96.9 F 10/14/23 03:26 Pulse 60 10/14/23 03:26 Resp 16 10/14/23 03:26 BP 147/71 H 10/14/23 03:26 Pulse Ox 95 10/14/23 03:26 O2 Del Method Room Air 10/14/23 03:26 BMI result Body Mass Index 32.9 Constitutional - Awake and Alert, No apparent distress Eyes - PERRLA, EOMI Cardiovascular - S1S2, RRR, No edema Respiratory - Normal lung expansion, Normal respiratory effort, No respiratory distress, CTA bilaterally Gastrointestinal - diffuse abd pain with guarding. ND; +BS; No rebound Extremities - no calf tenderness bilaterally, no swelling Skin - Warm/Dry Neurological - Alert & oriented x3 Psychological - Appropriate affect Objective Data Active Medications Famotidine (Famotidine/Pf 20 Mg/2 Ml Vial) 20 mg IVPUSH DAILY [facility] Glucose (Glucose Gel 15 Gm Gel..Gram.) 15 gm PO Q15M PRN; Protocol PRN Reason: per Hypoglycemia Standing Ord. Lactated Ringer's (Lr) 1,000 mls @ 100 mls/hr IVCONT .Q10H [facility] Last Admin: 10/13/23 22:17 Dose: 100 mls/hr Documented By: SPARKLE Dextrose (D10) 250 mls @ 750 mls/hr IV Q15M PRN; Protocol PRN Reason: per Hypoglycemia Standing Ord. Lisinopril (Lisinopril 10 Mg Tablet) 10 mg PO DAILY [facility]; Protocol Last Admin: 10/13/23 08:41 Dose: 10 mg Documented By: JOSE Melatonin (Melatonin 3 Mg Tablet) 6 mg PO BEDTIME PRN PRN Reason: Insomnia Last Admin: 10/13/23 22:14 Dose: 6 mg Documented By: SPARKLE Morphine Sulfate (Morphine Sulfate 4 Mg/Ml Cartridge) 2 mg IVPUSH Q3H PRN; Protocol PRN Reason: Pain, Severe (Pain Scale 7-10) Last Admin: 10/14/23 04:02 Dose: 2 mg Documented By: SPARKLE Ondansetron HCl (Ondansetron Hcl 4 Mg/2 Ml Vial) 4 mg IVPUSH Q6H PRN PRN Reason: nausea Sodium Chloride (0.9 % Sodium Chloride Flush 3 Ml Syringe) 3 ml IVFLUSH QSHIFT [facility] Last Admin: 10/14/23 00:16 Dose: Not Given Documented By: SPARKLE Non-Admin Reason: IV Running Labs 10/13/23 05:14 10/13/23 05:14 Labs: Laboratory Results - last 24 hr 10/12/23 10/13/23 10/13/23 18:43 16:21 19:43 POC Glucose 105 230 H Stl C. cayetanensis PCR Not Detected Stool Rotavirus A PCR Not Detected Stl Adenov F 40/41 PCR Not Detected Stool Astrovirus (PCR) Not Detected Stool Campylobacter PCR Not Detected Stool Cryptosporidium PCR Not Detected Stl Sh Tox Pr E STEC PCR Not Detected Stool E coli O157 PCR Not applicable Stl Enterotoxigenic E PCR Not Detected Stool EPEC (PCR) Not Detected Stool EAEC (PCR) Not Detected Stl E. histolytica PCR Not Detected Stool Giardia Lamblia PCR Not Detected Stl P. shigelloides PCR Not Detected Stool Salmonella PCR Not Detected Stool Sapovirus (PCR) Not Detected Stl Shigella/EIEC PCR Not Detected St Y.enterocolitica PCR Not Detected Stool Vibrio (PCR) Not Detected Stl Vibrio cholerae PCR Not Detected Stl Norovirus GI/GII PCR Not Detected Assessment and Plan (1) Abdominal pain: Status: Acute Plan This is a 38-year-old male with a PMH significant for vvd-vxcmonu-quzisjsxo type 2 diabetes and HTN and recent admission for SBO who returns to the ED with recurrent abdominal pain found to have dilated bowel loops on imaging and concern for recurrent SBO Abdominal pain Question of small-bowel obstruction on imaging; small bowel follow through showing contrast passing through arguing against obstruction C diff negative and GI panel negative again GI consult for other causes of symptoms ?inflammatory bowel disease. Has FH IBD on maternal side symptomatic support for now Bko-lrbusxb-hvmlrgper type 2 diabetes Has been noncompliant with metformin for several years A1c 7.1 on 10/06/2023 Patient NPO, will hold on sliding scale insulin for now Follow POC, cover with SSI sugars remain elevated once diet resumes HTN Continue lisinopril Tobacco dependence Smoking cessation counseled NRT Thank you for allowing us to participate in the care of this patient. Will continue following along with you. Quality Stroke Does the patient have a stroke diagnosis?: No VTE Prior VTE?: No VTE Risk Level:: Medical - low VTE Device Contraindication: N/A - Device Ordered VTE Drug Contraindication: Treatment Not Indicated
[2023-10-14 07:34] LABS: Glucose, Whole Blood 97 mg/dL (60-115)
[2023-10-14 07:45] VITALS: BP 148/76; PULSE 59; RESP 18; TEMP 36.3; O2SAT 95
[2023-10-14] MEDS: Lactated Ringers 1,000 ML 100 ML IVCONT (07:54)
[2023-10-14] MEDS: Famotidine/PF 20 MG/2 ML VIAL IVPUSH (07:54)
[2023-10-14] MEDS: lisinopriL 10 MG TABLET PO (07:55)
[2023-10-14] MEDS: 0.9 % Sodium Chloride Flush 3 ML SYRINGE IVFLUSH ×2 (07:57→20:51)
[2023-10-14 11:36] LABS: Glucose, Whole Blood 116 mg/dL (60-115)
--- NOTE | 2023-10-14 15:16 | PM.PNGS ---
Subjective Subjective Date of Service: 10/14/23 Interval history: Upper abdominal symptoms improving. Patient tolerating liquid diet. Passing some flatus. He is up ambulating. Physical Exam Vital Signs: Vital Signs: Last Vital Signs Temp 97.4 F 10/14/23 07:45 Pulse 59 10/14/23 07:45 Resp 18 10/14/23 07:45 BP 148/76 H 10/14/23 07:45 Pulse Ox 95 10/14/23 07:45 O2 Del Method Room Air 10/14/23 07:45 BMI result Body Mass Index 32.9 GI: Other: Abdomen very corpulent, soft, mild epigastric tenderness but no evidence of any guarding, rebound, or rigidity. Objective Data Active Medications Famotidine (Famotidine/Pf 20 Mg/2 Ml Vial) 20 mg IVPUSH DAILY [facility] Last Admin: 10/14/23 07:54 Dose: 20 mg Documented By: KURTIS Glucose (Glucose Gel 15 Gm Gel..Gram.) 15 gm PO Q15M PRN; Protocol PRN Reason: per Hypoglycemia Standing Ord. Lactated Ringer's (Lr) 1,000 mls @ 100 mls/hr IVCONT .Q10H [facility] Last Admin: 10/14/23 07:54 Dose: 100 mls/hr Documented By: KURTIS Dextrose (D10) 250 mls @ 750 mls/hr IV Q15M PRN; Protocol PRN Reason: per Hypoglycemia Standing Ord. Insulin Human Lispro (Insulin Lispro 100 Unit/Ml 3 Ml Vial) 0 unit SUBCUT QIDACHS [facility]; Protocol Lisinopril (Lisinopril 10 Mg Tablet) 10 mg PO DAILY [facility]; Protocol Last Admin: 10/14/23 07:55 Dose: 10 mg Documented By: KURTIS Melatonin (Melatonin 3 Mg Tablet) 6 mg PO BEDTIME PRN PRN Reason: Insomnia Last Admin: 10/13/23 22:14 Dose: 6 mg Documented By: SPARKLE Morphine Sulfate (Morphine Sulfate 4 Mg/Ml Cartridge) 2 mg IVPUSH Q3H PRN; Protocol PRN Reason: Pain, Severe (Pain Scale 7-10) Last Admin: 10/14/23 14:18 Dose: 2 mg Documented By: KURTIS Ondansetron HCl (Ondansetron Hcl 4 Mg/2 Ml Vial) 4 mg IVPUSH Q6H PRN PRN Reason: nausea Sodium Chloride (0.9 % Sodium Chloride Flush 3 Ml Syringe) 3 ml IVFLUSH QSHIFT [facility] Last Admin: 10/14/23 14:50 Dose: Not Given Documented By: KURTIS Non-Admin Reason: IV Running Labs 10/13/23 05:14 10/13/23 05:14 Labs: Laboratory Results - last 24 hr 10/13/23 10/13/23 10/14/23 16:21 19:43 07:27 POC Glucose 105 230 H 97 10/14/23 11:28 POC Glucose 116 H Procedures Date of Service Date of Service: 10/14/23 Progress Note: A&P Assessment and plan (1) Nausea & vomiting: Status: Acute (2) Abdominal pain: Status: Acute Plan Slowly advance diet, out of bed, encourage incentive spirometry. Patient will consider discharge home tomorrow if symptoms continue to improve. All questions answered. Time Spent With Patient Time: Total time managing care of this patient today ____ minutes. Quality Stroke Does the patient have a stroke diagnosis?: No VTE Prior VTE?: No VTE Risk Level:: Medical - low VTE Device Contraindication: N/A - Device Ordered VTE Drug Contraindication: Treatment Not Indicated
[2023-10-14 15:25] VITALS: BP 161/75; PULSE 56; RESP 16; TEMP 36.3; O2SAT 95
[2023-10-14 16:09] LABS: Glucose, Whole Blood 167 mg/dL (60-115)
[2023-10-14] MEDS: Insulin Lispro 100 UNIT/ML 3 ML VIAL SUBCUT ×2 (16:15→20:54)
[2023-10-14 20:00] VITALS: BP 158/77; PULSE 64; RESP 18; TEMP 36.3; O2SAT 96
[2023-10-14 20:21] LABS: Glucose, Whole Blood 152 mg/dL (60-115)
[2023-10-14] MEDS: Nicotine 7 MG PATCH.TD24 TRANSDERMA (20:57)
[2023-10-15 00:17] VITALS: BP 166/83; PULSE 61; RESP 16; TEMP 36.4; O2SAT 97
[2023-10-15] MEDS: Morphine Sulfate 4 MG/ML CARTRIDGE 2 MG IVPUSH ×4 (00:34→11:59)
[2023-10-15] MEDS: Melatonin 3 MG TABLET 6 MG PO (00:35)
[2023-10-15 07:09] VITALS: BP 140/75; PULSE 54; RESP 16; TEMP 36.2; O2SAT 94
--- NOTE | 2023-10-15 07:16 | P.PNIM_ITS ---
Subjective Subjective Date of Service: 10/15/23 Interval History: seen and examined this morning follow up for medical consultation still reporting abdominal pain. Passing gas. No n/v. Tolerating diet advancement no fever or chills Review of Systems Review of Systems: Yes all other systems are reviewed and are negative Constitutional Constitutional: Denies chills and Denies fever(s) Cardiovascular Cardiovascular: Denies chest pain, Denies palpitations and Denies dyspnea Respiratory Respiratory: Denies cough and Denies dyspnea Gastrointestinal Gastrointestinal: Reports abdominal pain, Reports diarrhea and Reports nausea Endocrine Endocrine: Denies palpitations Physical Exam 2 Vital Signs: Vital Signs: Last Vital Signs Temp 97.1 F 10/15/23 07:09 Pulse 54 10/15/23 07:09 Resp 16 10/15/23 07:09 BP 140/75 H 10/15/23 07:09 Pulse Ox 94 10/15/23 07:09 O2 Del Method Room Air 10/15/23 07:09 BMI result Body Mass Index 32.9 Constitutional - Awake and Alert, No apparent distress Eyes - PERRLA, EOMI Cardiovascular - S1S2, RRR, No edema Respiratory - Normal lung expansion, Normal respiratory effort, No respiratory distress, CTA bilaterally Gastrointestinal - mild diffuse abd pain without guarding. ND; +BS; No rebound Extremities - no calf tenderness bilaterally, no swelling Skin - Warm/Dry Neurological - Alert & oriented x3 Psychological - Appropriate affect Objective Data Active Medications Famotidine (Famotidine/Pf 20 Mg/2 Ml Vial) 20 mg IVPUSH DAILY [facility] Last Admin: 10/14/23 07:54 Dose: 20 mg Documented By: KURTIS Glucose (Glucose Gel 15 Gm Gel..Gram.) 15 gm PO Q15M PRN; Protocol PRN Reason: per Hypoglycemia Standing Ord. Dextrose (D10) 250 mls @ 750 mls/hr IV Q15M PRN; Protocol PRN Reason: per Hypoglycemia Standing Ord. Insulin Human Lispro (Insulin Lispro 100 Unit/Ml 3 Ml Vial) 0 unit SUBCUT QIDACHS [facility]; Protocol Last Admin: 10/14/23 20:54 Dose: 2 unit Documented By: SPARKLE Lisinopril (Lisinopril 10 Mg Tablet) 10 mg PO DAILY [facility]; Protocol Last Admin: 10/14/23 07:55 Dose: 10 mg Documented By: KURTIS Melatonin (Melatonin 3 Mg Tablet) 6 mg PO BEDTIME PRN PRN Reason: Insomnia Last Admin: 10/15/23 00:35 Dose: 6 mg Documented By: SPARKLE Morphine Sulfate (Morphine Sulfate 4 Mg/Ml Cartridge) 2 mg IVPUSH Q3H PRN; Protocol PRN Reason: Pain, Severe (Pain Scale 7-10) Last Admin: 10/15/23 03:38 Dose: 2 mg Documented By: SPARKLE Nicotine (Nicotine 7 Mg Patch.Td24) 7 mg TRANSDERMA DAILY [facility] Last Admin: 10/14/23 20:57 Dose: 7 mg Documented By: SPARKLE Ondansetron HCl (Ondansetron Hcl 4 Mg/2 Ml Vial) 4 mg IVPUSH Q6H PRN PRN Reason: nausea Sodium Chloride (0.9 % Sodium Chloride Flush 3 Ml Syringe) 3 ml IVFLUSH QSHIFT [facility] Last Admin: 10/14/23 20:51 Dose: 3 ml Documented By: SPARKLE Labs 10/13/23 05:14 10/13/23 05:14 Labs: Laboratory Results - last 24 hr 10/14/23 10/14/23 10/14/23 07:27 11:28 16:04 POC Glucose 97 116 H 167 H 10/14/23 19:53 POC Glucose 152 H Assessment and Plan (1) Abdominal pain: Status: Acute Plan This is a 38-year-old male with a PMH significant for xqk-[id number]-gowebsqqr type 2 diabetes and HTN and recent admission for SBO who returns to the ED with recurrent abdominal pain found to have dilated bowel loops on imaging and concern for recurrent SBO Abdominal pain Question of small-bowel obstruction on imaging; small bowel follow through showing contrast passing through arguing against obstruction C diff negative and GI panel negative again GI consult for other causes of symptoms ?inflammatory bowel disease. Has FH IBD on maternal side symptomatic support for now Uta-jslljzp-zruapeubn type 2 diabetes Has been noncompliant with metformin for several years A1c 7.1 on 10/06/2023 Diet advanced. Admelog on SSI Follow POC, advance to diabetic diet resume metformin on discahrge HTN Continue lisinopril Tobacco dependence Smoking cessation counseled NRT Thank you for allowing me to participate in this consult. Signing off at this time. Please do not hesitate to call for further questions. Quality Stroke Does the patient have a stroke diagnosis?: No VTE Prior VTE?: No VTE Risk Level:: Medical - low VTE Device Contraindication: N/A - Device Ordered VTE Drug Contraindication: Treatment Not Indicated
[2023-10-15 07:35] LABS: Glucose, Whole Blood 111 mg/dL (60-115)
[2023-10-15] MEDS: Nicotine 7 MG PATCH.TD24 TRANSDERMA (07:51)
[2023-10-15] MEDS: lisinopriL 10 MG TABLET PO (07:51)
[2023-10-15] MEDS: Famotidine/PF 20 MG/2 ML VIAL IVPUSH (07:51)
[2023-10-15] MEDS: 0.9 % Sodium Chloride Flush 3 ML SYRINGE IVFLUSH (07:52)
[2023-10-15 12:00] LABS: Glucose, Whole Blood 110 mg/dL (60-115)
--- NOTE | 2023-10-15 15:02 | PM.PNGS ---
Subjective Subjective Date of Service: 10/15/23 Interval history: Patient's abdominal symptoms have markedly improved. He is tolerating his diet. He is having some loose stool which is expected. Physical Exam Vital Signs: Vital Signs: Last Vital Signs Temp 97.1 F 10/15/23 07:09 Pulse 54 10/15/23 07:09 Resp 16 10/15/23 07:09 BP 140/75 H 10/15/23 07:09 Pulse Ox 94 10/15/23 07:09 O2 Del Method Room Air 10/15/23 07:09 BMI result Body Mass Index 32.9 GI: Other: Abdomen corpulent, soft, very mild upper abdominal tenderness but without guarding, rebound, rigidity. Objective Data Active Medications Famotidine (Famotidine/Pf 20 Mg/2 Ml Vial) 20 mg IVPUSH DAILY [facility] Last Admin: 10/15/23 07:51 Dose: 20 mg Documented By: KURTIS Glucose (Glucose Gel 15 Gm Gel..Gram.) 15 gm PO Q15M PRN; Protocol PRN Reason: per Hypoglycemia Standing Ord. Dextrose (D10) 250 mls @ 750 mls/hr IV Q15M PRN; Protocol PRN Reason: per Hypoglycemia Standing Ord. Insulin Human Lispro (Insulin Lispro 100 Unit/Ml 3 Ml Vial) 0 unit SUBCUT QIDACHS [facility]; Protocol Last Admin: 10/15/23 11:56 Dose: Not Given Documented By: KURTIS Non-Admin Reason: No Insulin Coverage Lisinopril (Lisinopril 10 Mg Tablet) 10 mg PO DAILY [facility]; Protocol Last Admin: 10/15/23 07:51 Dose: 10 mg Documented By: KURTIS Melatonin (Melatonin 3 Mg Tablet) 6 mg PO BEDTIME PRN PRN Reason: Insomnia Last Admin: 10/15/23 00:35 Dose: 6 mg Documented By: SPARKLE Morphine Sulfate (Morphine Sulfate 4 Mg/Ml Cartridge) 2 mg IVPUSH Q3H PRN; Protocol PRN Reason: Pain, Severe (Pain Scale 7-10) Last Admin: 10/15/23 11:59 Dose: 2 mg Documented By: KURTIS Nicotine (Nicotine 7 Mg Patch.Td24) 7 mg TRANSDERMA DAILY [facility] Last Admin: 10/15/23 07:51 Dose: 7 mg Documented By: KURTIS Ondansetron HCl (Ondansetron Hcl 4 Mg/2 Ml Vial) 4 mg IVPUSH Q6H PRN PRN Reason: nausea Sodium Chloride (0.9 % Sodium Chloride Flush 3 Ml Syringe) 3 ml IVFLUSH QSHIFT [facility] Last Admin: 10/15/23 07:52 Dose: 3 ml Documented By: KURTIS Labs 10/13/23 05:14 10/13/23 05:14 Labs: Laboratory Results - last 24 hr 10/14/23 10/14/23 10/15/23 16:04 19:53 07:15 POC Glucose 167 H 152 H 111 10/15/23 11:54 POC Glucose 110 Procedures Date of Service Date of Service: 10/15/23 Progress Note: A&P Assessment and plan (1) Nausea & vomiting: Status: Acute (2) Abdominal pain: Status: Acute Plan Current plan is discharge patient home with follow-up as directed. All questions answered. Arrangements made for this. Time Spent With Patient Time: Total time managing care of this patient today ____ minutes. Quality Stroke Does the patient have a stroke diagnosis?: No VTE Prior VTE?: No VTE Risk Level:: Medical - low VTE Device Contraindication: N/A - Device Ordered VTE Drug Contraindication: Treatment Not Indicated
--- NOTE | 2023-10-15 16:02 | MHC.CM.PN ---
PT WILL DC HOME TODAY WITH NO SERVICES VIA SELF-ARRANGED TRANSPORT
--- NOTE | 2023-11-13 13:08 | PM.DS ---
DS: Providers Provider Date of Service: 10/15/23 Date of admission: 10/12/23 18:11 Date of discharge: 10/15/23 Primary care physician: Christopher Arguello MD Admitting clinician: Kanu Jones Consults: 10/12/23 18:19 Consult to Hospitalist Routine Comment: Consulting Provider: Hospitalist Reason For Exam: DM, HTN 10/13/23 14:23 Consult to Gastroenterology Routine Consulting Provider: Grabiel Rod Reason for consultation: recurrent pSBO, no previous surgery ?gastroenertitis ?inflammatory bowel dz Has provider been notified: No DS: Diagnosis Discharge Diagnosis (1) Abdominal pain: Status: Resolved (2) E coli enteritis: Status: Acute DS: Summary Hospital Course Hospital Course: 38F admitted because of abdominal pain and nausea. He was just discharged from the hospital 2 days prior for the same complaints. He had a recurrence of his sympotms at home. He had a repeat CT scan in the ED showing dilated small bowel loops with distal collapse but not transition point. Admitting impression was partial small bowel obstruction versus gastroenteritis. He was started on IV fluids and kept on bowel rest. He had diarrhea on presentation and stool studies showed enteropathogenic E coli which explained his symptoms. He was seen by Dr. Rod of Gastroenterology. He continued to improve and his symptoms evetuall resolved. He was discharged much improved and was given instructions including a ffup with Gastroeneterology. Time Attestation Total time managing care of this patient today: 0 mintues. Discharge Coordination Time (in mins): 30 min Quality: Safe Use of Opioids Does Pt have an Active Cancer Diagnosis on the Problem List?: No Quality: Stroke Does the patient have a stroke diagnosis?: No Physical Exam Vital Signs: Vital Signs: Last Vital Signs Temp 97.1 F 10/15/23 07:09 Pulse 54 10/15/23 07:09 Resp 16 10/15/23 07:09 BP 140/75 H 10/15/23 07:09 Pulse Ox 94 10/15/23 07:09 O2 Del Method Room Air 10/15/23 07:09 BMI result Body Mass Index 32.9 Const: General: comfortable and no acute distress Orientation/consciousness: patient oriented x3 Neck: Neck: Yes no lymphadenopathy Resp: Auscultation: clear to auscultation bilaterally Cardio: Rhythm: regular rhythm GI: Palpation (GI): Soft to palpation, nontender and no guarding Neuro: General: patient oriented x3 Discharge Plan Discharge Anticipated Discharge Date/Time: 10/15/23 15:03 Patient Disposition: Home, Self-Care Discharge Diagnosis: Gastroenteritis/partial small bowel obstruction Referrals: Physician,Unknown J [Physician] - 1 Week (Dr. Kanu Jones call for follow-up) Discharge Medications: Continued lisinopril 10 mg Tablet 10 mg PO DAILY Qty: 30 1RF Protocol: Hold for SBP< HOLD for SBP < : 90 No Action metformin 500 mg Tablet 500 mg PO BID amlodipine 5 mg Tablet 5 mg PO BEDTIME Qty: 30 0RF Protocol: Hold for SBP< HOLD for SBP < : 90 oxycodone 10 mg tablet 10 mg PO Q6H PRN (Reason: pain) Qty: 20 0RF Rx Instructions: Partial Fill upon patient request. omeprazole 40 mg capsule,delayed release(DR/EC) 40 mg PO DAILY Qty: 30 0RF Discharge Orders: Discharge Order (Routine); Ordered 10/15/23 Ordered By: Jacinto Che Diet: Advance to usual diet Activity on Discharge: No heavy lifting Stand Alone Forms: Patient Portal Discharge page Print Language: Kiswahili Activity Restrictions/Additional Instructions: Called Dr. Kanu Jones office for follow-up in approximate 1 week Care Plan Goals: Returned to baseline Health Concerns: No new concerns Plan of Treatment: Stable Assessment: DC home Discharge Date/Time: 10/15/23 15:18
== END 2023-10-15 15:18 | disposition home or self-care (01) | DRG 248 ==
LOC: HO.ED 15:25 → HO.EDOVER 18:27 → HO.S3 10-13 09:25
PROVIDERS: Admitting Provider Surgery; Emergency Provider Emergency Medicine; PCP Family Medicine; Visit Provider Surgery
DX: A04.1 Enterotoxigenic Escherichia coli infection (principal); E11.9 Type 2 diabetes mellitus without complications; F17.210 Nicotine dependence, cigarettes, uncomplicated; F43.10 Post-traumatic stress disorder, unspecified; Z71.6 Tobacco abuse counseling; I10 Essential (primary) hypertension; Z91.148 Patient's other noncompliance with medication regimen for other reason; Z79.899 Other long term (current) drug therapy
CPT/HCPCS: 36415; 74177; 74250; 80048; 80076; 80307; 82947; 83690; 85025; 87493; 87507; 99285; J1170; J2270; J2405; J7120; Q9967

== ENCOUNTER 2023-10-12 18:11 | Outpatient (BNV) | payer MEDICAID, SELFPAY | END 2023-10-13 09:30 | PROVIDERS: Admitting Provider Surgery; Emergency Provider Emergency Medicine; PCP Family Medicine; Visit Provider Radiology Diagnostic Radiology | DX: K56.609 Unspecified intestinal obstruction, unspecified as to partial versus complete obstruction (principal) | CPT/HCPCS: 74250 ==

== ENCOUNTER → 2023-10-12 18:11 | Outpatient (BNV) | payer MEDICAID, SELFPAY | PROVIDERS: Admitting Provider Surgery; Emergency Provider Emergency Medicine; Visit Provider Student in an Organized Health Care Education/Training Program | DX: R10.84 Generalized abdominal pain (principal) | CPT/HCPCS: 99222; 99232 ==

== ENCOUNTER → 2023-10-12 18:11 | Outpatient (BNV) | payer MEDICAID, SELFPAY | PROVIDERS: Admitting Provider Surgery; Emergency Provider Emergency Medicine; Visit Provider Surgery | DX: R11.2 Nausea with vomiting, unspecified (principal); R10.84 Generalized abdominal pain | CPT/HCPCS: 99222; 99232; 99238; 99499 ==

== ENCOUNTER 2023-11-01 23:37 | Inpatient (IN) | payer MEDICAID, SELFPAY ==
--- NOTE | ~2023-11-01 | CT_ITS ---
EXAMINATION: CT ABDOMEN AND PELVIS WITH CONTRAST CLINICAL INFORMATION: Abdominal pain. COMPARISON: 10/12/2023 TECHNIQUE: Multidetector volumetric images were obtained from the superior aspect of the liver through the pubic symphysis following administration 85 mL of Omnipaque 350 intravenous contrast. Sagittal and coronal reformatted images were obtained on the technologist's workstation. Oral contrast: No This CT examination was performed using dose optimization techniques as appropriate, variously including the following: *Automated exposure control *Adjustment of mA and/or kV according to patient size (this includes techniques or standardized protocols for targeted exams where dose is matched to indication/reason for exam; i.e. extremities or head) *Use of iterative reconstruction technique DLP: 1016 mGy-cm FINDINGS: LUNG BASES: The visualized lung bases are unremarkable. LIVER, GALLBLADDER, AND BILIARY TREE: The liver is decreased in attenuation. No suspicious hepatic lesion or biliary ductal dilatation is present. The gallbladder is contracted. PANCREAS: Unremarkable. SPLEEN: Unremarkable. ADRENAL GLANDS: Unremarkable. KIDNEYS AND URETERS: New ill-defined area of hypoattenuation in the interpolar region of the right kidney. No hydronephrosis. No perinephric stranding. BLADDER: Unremarkable. GASTROINTESTINAL TRACT: Mild diffuse pericolonic stranding and colonic wall thickening with prominence of the vasa recta. No small bowel obstruction. Appendix is within normal limits. ABDOMINAL WALL: No significant hernia is appreciated. LYMPH NODES: Nonspecific mesenteric lymph nodes. VASCULAR: Normal caliber abdominal aorta. PELVIC VISCERA: Unremarkable. OSSEOUS STRUCTURES: No destructive bone lesions. CT/CT abdomen pelvis w IV con IMPRESSION: Mild diffuse pericolonic stranding and colonic wall thickening with prominence of the vasa recta. This likely represents colitis. Infectious etiologies should be considered. Ill-defined region of hypoattenuation in the interpolar region of the right kidney. This was not present/conspicuous on the 10/12/2023 examination. The possibility of focal infection or inflammation cannot be excluded.
[2023-11-01 23:47] VITALS: BP 174/104; PULSE 98; O2SAT 98
[2023-11-02] VITALS (13 sets, daily range): BP systolic 156–180; BP diastolic 63–102; PULSE 54–88; RESP 16–20; TEMP 36–36.7; O2SAT 95–98; BMI 33.7; BMI 40.9
[2023-11-02 00:38] LABS: MANUAL DIFF FLAG NO
[2023-11-02 00:40] LABS: Basophils Percent Auto 0.3 % (0-2); Eosinophils Absolute Auto 0.2 X10*3/uL (0.0-0.4); Eosinophils Percent Auto 1.3 % (0-4); Hemoglobin 14.4 g/dl (14.0-18.0); Imm Gran Abs Auto 0.14 X10*3/uL (0.00-0.03); Lymphocytes Percent Auto 14.3 % (20-40); Mean Corpuscular HGB Conc 34.3 g/dl (31.0-36.0); Mean Corpuscular Hemoglobin 29.9 pg (27.0-33.0); Mean Corpuscular Volume 87.3 fL (80.0-98.0); Mean Platelet Volume 9.7 fL (9.4-12.4); Monocytes Absolute Auto 0.9 X10*3/uL (0.1-1.2); Monocytes Percent Auto 6.3 % (2-11); Neutrophils Absolute Auto 10.6 x10*3/uL (2.0-8.3); Neutrophils Percent Auto 76.8 % (45-73); Platelet Count 275 X10*3/uL (160-400); Red Blood Count 4.81 X10*6/uL (4.60-5.80); Red Cell Distribution Width 11.8 % (11.0-16.0); White Blood Count 13.7 X10*3/uL (4.8-10.8)
[2023-11-02 00:54] LABS: Alanine Aminotransferase 15 U/L (0-40); Albumin Level 4.1 g/dL (3.5-5.0); Alkaline Phosphatase 129 U/L (39-117); Anion Gap 14 (12-20); Aspartate Amino Transferase 15 U/L (5-37); Bilirubin Total 0.4 mg/dL (0.0-1.0); Blood Urea Nitrogen 8 mg/dL (9-16); Calcium 9.6 mg/dL (8.4-10.2); Carbon Dioxide 23 mmol/L (22-29); Chloride 107 mmol/L (96-108); Creatinine Clr Calc Pharmacy 126.3; Estimated Glomerular Filt Rate > 60; Glucose Random 223 mg/dL (60-115); Potassium 4.4 mmol/L (3.3-5.1); Sodium 140 mmol/L (135-145); Total Protein 7.5 g/dL (6.5-8.0)
--- NOTE | 2023-11-02 07:33 | PC.NURSE ---
this RN resumed care of pt at 0700. a&ox4. vss and up to date aside from being hypertensive. pt currently c/o 01/09 upper abd pain. pt states sx started monday. pt also verbalizes some nausea and diarrhea. denies vomiting. abd tender upon palpation. labs obtained/sent to lab. urine obtained/sent to lab. pt waiting to go to CT at this time. no sob/wob noted. respirations even adn unlabored. plan of care ongoing. call blanc placed within reach.
[2023-11-02 07:34] LABS: MANUAL DIFF FLAG NO
[2023-11-02 07:36] LABS: Basophils Absolute Auto 0.1 X10*3/uL (0.0-0.2); Basophils Percent Auto 0.5 % (0-2); Eosinophils Absolute Auto 0.3 X10*3/uL (0.0-0.4); Eosinophils Percent Auto 2.3 % (0-4); Hematocrit 39.5 % (42.0-52.0); Hemoglobin 13.7 g/dl (14.0-18.0); Imm Gran Abs Auto 0.02 X10*3/uL (0.00-0.03); Imm Gran Pct Auto 0.2 % (0.0-0.4); Lymphocytes Absolute Auto 3.2 X10*3/uL (1.2-4.9); Lymphocytes Percent Auto 30.1 % (20-40); Mean Corpuscular HGB Conc 34.7 g/dl (31.0-36.0); Mean Corpuscular Hemoglobin 30.1 pg (27.0-33.0); Mean Corpuscular Volume 86.8 fL (80.0-98.0); Mean Platelet Volume 9.7 fL (9.4-12.4); Monocytes Percent Auto 9.5 % (2-11); Neutrophils Absolute Auto 6.2 x10*3/uL (2.0-8.3); Neutrophils Percent Auto 57.4 % (45-73); Platelet Count 252 X10*3/uL (160-400); Red Blood Count 4.55 X10*6/uL (4.60-5.80); Red Cell Distribution Width 11.9 % (11.0-16.0); White Blood Count 10.8 X10*3/uL (4.8-10.8)
[2023-11-02 07:37] LABS: Appearance Urine Clear; Color Urine Yellow; Glucose Urine UA 250 mg/dL (Negative); Leukocyte Esterase Urine Trace (Negative); Nitrite Urine Negative (Negative); PH 5.5 (5.0-9.0); UMIC TRIGGER UACC YES; Urine Blood Negative (Negative); Urine Ketones Negative (Negative); Urine Protein Negative (Neg-Trace)
[2023-11-02 07:39] LABS: Bacteria Urine None Seen (None Seen); Hyaline Casts Urine 0-2 /LPF (0-2); RBC Urine 0-2 /HPF (0-2); UACC Culture Trigger YES
--- NOTE | 2023-11-02 07:47 | PC.NURSE ---
pt to CT at this time.
[2023-11-02 07:53] LABS: Lipase 30 U/L (8-78)
--- NOTE | 2023-11-02 08:06 | ED_ITS ---
HPI - General Adult General Chief complaint: Abdominal Pain Stated complaint: abdominal pain Time Seen by Provider: 11/02/23 06:42 Source: patient Mode of arrival: ambulatory Limitations: no limitations History of Present Illness HPI narrative: 38 yo m with pmhx HTN, DM, PTSD, diverticulitis presents with b/l upper quadrant since yesterday. States he has felt this pain in the past with previous diverticulitis. He took ibuprofen before coming to the ED last night. He reports associated diarrhea, and states the nausea came later in previous episode. Denies cp, sob, fevers, chills, constipation, headaches, dizziness. Related Data Home Medications ?Medication ?Instructions ?Recorded ?Confirmed omeprazole 20 mg capsule,delayed 20 mg PO DAILY PRN Acid Reflux 10/05/23 10/12/23 release Previous Rx's ?Medication ?Instructions ?Recorded lisinopril 10 mg tablet 10 mg PO DAILY #30 tabs 10/10/23 Allergies Allergy/AdvReac Type Severity Reaction Status Date / Time amoxicillin [AMOXICILLIN] Allergy Unknown ANAPHYLAXIS Verified 11/02/23 00:04 bee pollen [BEE STINGS] Allergy Unknown ANAPHYLAXIS Verified 11/02/23 00:04 tizanidine Allergy Hives Verified 11/02/23 00:04 Review of Systems 2 Review of Systems: Yes all other systems are reviewed and are negative PMFSH Past Medical History Attestation statement: The following information was validated with the patient. Source: old records reviewed and nursing notes reviewed Medical History Diabetes type 2, controlled Family History Family History Other CAD (coronary artery disease) Social History Social History Household Members: None Housing: Apartment Do you presently have visiting nurse or other home services: No Alcohol intake: current Alcohol intake frequency: a few times a month Alcohol type: beer Patient Tobacco Use Status: Current everyday Tobacco user Cigarette Packs Per Day: 1.5 Cigarettes Per Day: 30.0 Smoked in Last 30 Days: Yes Second Hand Smoke Exposure: No Use of substances other than those prescribed or required for medical reasons: No Substance Use Type: Crack/Cocaine and Marijuana Advance Directives: No Advance Directives Information Provided: No Do you have a plan to hurt others: No Plan service: No Physical Exam ED Vital Signs: Vital Signs - 24 hr 11/02/23 00:00 11/02/23 02:47 11/02/23 06:24 Temperature 97.8 F 97.7 F 97.8 F Pulse Rate 88 80 75 Respiratory Rate 19 18 16 Blood Pressure 164/63 H 162/73 H 174/86 H Pulse Oximetry 95 96 97 Oxygen Delivery Method Room Air Room Air Room Air 11/02/23 09:52 11/02/23 12:45 Temperature 97.8 F 98.0 F Pulse Rate 54 68 Respiratory Rate 18 18 Blood Pressure 168/69 H 156/78 H Pulse Oximetry 97 95 Oxygen Delivery Method Room Air Room Air BMI result Body Mass Index 33.7 Appearance: Alert.? Oriented X3.? No acute distress.? Head: Normocephalic, atraumatic, no step-offs or deformities Eyes: Pupils equal, round and reactive to light.? Neck: Normal inspection.? Neck supple.? CVS: Normal heart rate and rhythm.? Pulses normal.? Respiratory: No respiratory distress.? Breath sounds normal.? Abdomen: Soft, tenderness to palpation in b/l upper quadrants of abdomen. Skin: Skin warm and dry.? Normal skin color.? Normal skin turgor.? Extremities: No lower extremity edema.? No calf ttp. 5/5 strength to bilateral upper and lower extremities Back: No midline tenderness, no C-spine tenderness, full range of motion, no CVA tenderness bilaterally Neuro: Oriented X 3.? No motor deficit.? No sensory deficit. CN 2-12 intact Course Reevaluation(s) Reevaluation #1: CBC with slight leukocytosis. Chemistry no acute findings requiring intervention. Normal lipase. Normal lactic acid. UA without infection. CT abdomen pelvis mild diffuse pericolonic stranding and colonic wall thickening within the prominence of the vasa recta this is likely representing colitis. Ill-defined region of hypoattenuation in the interpolar region of the right kidney this was not present or seen on 10/12/2023, no CVA tenderness no back pain no urinary symptoms. Patient will be treated with Flagyl and Levaquin as he does have an anaphylactic reaction to penicillin/amoxicillin. Plan is to admit for intractable abdominal pain, nausea, diarrhea. Hospitalist aware. Time: 12:05 Reevaluation #2: Discussed this case with GI Dr. Rod, recommends clear liquids and likely colonoscopy tomorrow. Time: 13:12 Medications Administered Discontinued Medications Generic Name Dose Route Start Last Admin Trade Name Clarkeq PRN Reason Stop Dose Admin Hydromorphone HCl 0.5 mg 11/02/23 10:57 11/02/23 11:04 Hydromorphone Hcl 0.5 Mg/0.5 Ml Syringe IVPUSH 11/02/23 10:58 0.5 mg ONCE ONE Administration Protocol Sodium Chloride 3,197.82 mls @ 3,197.82 mls/hr 11/02/23 08:30 11/02/23 10:15 Ns 30 ml/kg infuse over 1 hr (3197.82 ml) 11/02/23 09:29 Infused IV Infusion .Q1H STA Metronidazole 500 mg in 100 mls @ 100 mls/hr 11/02/23 11:58 11/02/23 12:17 Flagyl IV 11/02/23 12:57 100 mls/hr ONCE ONE Administration Levofloxacin 500 mg in 100 mls @ 100 mls/hr 11/02/23 11:58 11/02/23 12:17 Levaquin IV 11/02/23 12:57 100 mls/hr ONCE ONE Administration Iohexol 100 ml 11/02/23 08:23 11/02/23 08:23 Iohexol 350 Mg/Ml 100 Ml Infus..Btl IV 11/02/23 08:24 85 ml ONCE ONE Administration Ketorolac Tromethamine 30 mg 11/02/23 08:02 11/02/23 08:10 Ketorolac Tromethamine 15 Mg/Ml Vial IVPUSH 11/02/23 08:03 30 mg ONCE ONE Administration Morphine Sulfate 4 mg 11/02/23 08:33 11/02/23 09:06 Morphine Sulfate 4 Mg/Ml Cartridge IVPUSH 11/02/23 08:34 4 mg ONCE ONE Administration Protocol Medical Decision Making Medical Decision Making MDM Narrative: 38 yo m presents with upper quadrant abdominal pain since last night with associated diarrhea. States it is the same feeling as his recent diverticulitis episode. Pe benign- b/l upper quadrant abdominal tenderness Hx and pe concerning for viral illness vs diverticulitis vs colitis vs pancreatitis. Unlikley cholecystitis, obstriction, appendicitis, perf, acute abdomen, AAA. Will rule out electrolyte abnormaliteis. Plan- labs, imaging, urine. Differential Diagnosis Differential Diagnoses: The differential diagnosis associated with the presentation includes Hx and pe concerning for viral illness vs diverticulitis vs colitis vs pancreatitis. Unlikley cholecystitis, obstriction, appendicitis, perf, acute abdomen, AAA. Will rule out electrolyte abnormaliteis. Admission/Observation Consideration of admission/observation: Escalation of care including admission/observation considered Consult Healthcare Provider Management of the patient was discussed with: Hospitalist Lab Data [facility] Lab Attestation statement: I reviewed the patient's lab results. 11/02/23 07:29 11/02/23 00:33 Labs: Lab Results 11/02/23 11/02/23 11/02/23 Range/Units 00:33 07:29 09:06 WBC 13.7 H 10.8 (4.8-10.8) X10*3/uL RBC 4.81 4.55 L (4.60-5.80) X10*6/uL Hgb 14.4 13.7 L (14.0-18.0) g/dl Hct 42.0 39.5 L (42.0-52.0) % MCV 87.3 86.8 (80.0-98.0) fL MCH 29.9 30.1 (27.0-33.0) pg MCHC 34.3 34.7 (31.0-36.0) g/dl RDW 11.8 11.9 (11.0-16.0) % Plt Count 275 252 (160-400) X10*3/uL MPV 9.7 9.7 (9.4-12.4) fL Immature Gran % (Auto) 1.0 H 0.2 (0.0-0.4) % Neut % (Auto) 76.8 H 57.4 (45-73) % Lymph % (Auto) 14.3 L 30.1 (20-40) % [place] % (Auto) 6.3 9.5 (2-11) % Eos % (Auto) 1.3 2.3 (0-4) % Baso % (Auto) 0.3 0.5 (0-2) % Lymph # (Auto) 2.0 3.2 (1.2-4.9) X10*3/uL [place] # (Auto) 0.9 1.0 (0.1-1.2) X10*3/uL Eos # (Auto) 0.2 0.3 (0.0-0.4) X10*3/uL Baso # (Auto) 0.0 0.1 (0.0-0.2) X10*3/uL Abs Immat Gran (auto) 0.14 H 0.02 (0.00-0.03) X10*3/uL Absolute Neuts (auto) 10.6 H 6.2 (2.0-8.3) x10*3/uL Absolute Nucleated RBC 0.000 0.000 (0.0-0.012) X10*3/uL Nucleated RBC % (auto) 0.0 0.0 (0.0-0.2) /100WBC Sodium 140 (135-145) mmol/L Potassium 4.4 (3.3-5.1) mmol/L Chloride 107 (96-108) mmol/L Carbon Dioxide 23 (22-29) mmol/L Anion Gap 14 (12-20) BUN 8 L (9-16) mg/dL Creatinine 0.95 (0.5-1.4) mg/dL Estim Creat Clear Calc 126.3 Estimated GFR > 60 Random Glucose 223 H (60-115) mg/dL Lactic Acid 1.5 (0.5-2.0) mmol/L Calcium 9.6 D (8.4-10.2) mg/dL Total Bilirubin 0.4 (0.0-1.0) mg/dL AST 15 (5-37) U/L ALT 15 (0-40) U/L Alkaline Phosphatase 129 H (39-117) U/L Total Protein 7.5 (6.5-8.0) g/dL Albumin 4.1 (3.5-5.0) g/dL Lipase 30 (8-78) U/L Urine Color Yellow Urine Appearance Clear Urine pH 5.5 (5.0-9.0) Ur Specific [place] 1.020 (1.005-1.025) Urine Protein Negative (Neg-Trace) mg/dL Urine Glucose (UA) 250 H (Negative) mg/dL Urine Ketones Negative (Negative) mg/dL Urine Blood Negative (Negative) Urine Nitrite Negative (Negative) Ur Leukocyte Esterase Trace H (Negative) Urine RBC 0-2 (0-2) /HPF Urine WBC 6-10 H (0-5) /HPF Ur Squamous Epith Cells 6-10 (0-2) /HPF Urine Bacteria None Seen (None Seen) Hyaline Casts 0-2 (0-2) /LPF Independent Interpretation I performed an independent interpretation of an: CT Scan (CT/CT abdomen pelvis w IV con IMPRESSION: Mild diffuse pericolonic stranding and colonic wall thickening with prominence of the vasa recta. This likely represents colitis. Infectious etiologies should be considered. Ill-defined region of hypoattenuation in the interpolar region of the right kidney) Radiology Impression Discussion of test interpretation with radiology: I have reviewed the radiologist's reading. External Record Review External record reviewed: Inpatient record, Office record, Outpatient record, Prior outpatient labs, Prior outpatient radiology, Primary care record and Outside ED record Critical Care Time Critical Care Time Critical Care Time: Yes Total Critical Care Time: 35 Attestation: I attest to this time spent taking care of the patient, obtaining history, physical, reviewing labs, imaging, speaking to my attending, specialist or hospitalist. Discharge Plan Discharge Clinical Impression: Colitis, Diarrhea, Nausea Patient Disposition: Admitted As Inpatient Print Language: Mexican
[2023-11-02] MEDS: Ketorolac Tromethamine 15 MG/ML VIAL 30 MG IVPUSH (08:10)
--- NOTE | 2023-11-02 08:12 | PC.NURSE ---
pt c/o 01/09 abd pain. medication administered per provider order. effectiveness pending. pt waiting for CT results at this time. plan of care ongoing.
[2023-11-02] MEDS: iohexoL 350 MG/ML 100 ML INFUS..BTL IV (08:23)
[2023-11-02] MEDS: Morphine Sulfate 4 MG/ML CARTRIDGE IVPUSH (09:06)
--- NOTE | 2023-11-02 09:12 | PC.NURSE ---
20gIV placed in the left forearm - IVF/medication administered per provider order.
[2023-11-02 09:33] LABS: Lactic Acid 1.5 mmol/L (0.5-2.0)
--- NOTE | 2023-11-02 10:27 | PC.NURSE ---
pt verbalizing pain level slightly decreased to a 5/10 post medication administration. pt continues to rest comfortably in bed. respirations remain even and unlabored. plan of care ongoing.
[2023-11-02] MEDS: HYDROmorphone HCl 0.5 MG/0.5 ML SYRINGE IVPUSH (11:04)
--- NOTE | 2023-11-02 11:06 | PC.NURSE ---
pt verbalizing pain level increased - medication administered per provider order.
--- NOTE | 2023-11-02 12:15 | P.HPHOSP_ITS ---
History of Present Illness Date of Service: 11/02/23 Attending physician on admission: Jerri Solis Chief Complaint: Abdominal pain, N/V/D Pt is a 38-year-old male with a PMH significant for iwm-laowyyj-vovsypnvf type 2 diabetes, HTN, and GERD?who presents to the ED for evaluation of severe abdominal pain with diarrhea x2 days. Patient has had multiple presentations for similar symptoms in the past month: Was initially hospitalized from 10/03-10/09 for question of SBO where he had NGT placed and was treated conservatively. Symptoms returned one day after discharge and he was re-hospitalized from 10/11-10/15 where he was again treated conservatively for nonspecific gastroenteritis. Pt states his stomach felt weird for the past 3-4 days but did not become painful until 2 days ago. Last night pain worsened until pt was doubled over in agony and came to ED for further evaluation. Has also been experiencing non-bloody, painless diarrhea for the past week+, up to 10 episodes per day depending on intake. No chest pain but states has had a couple of 1-minute episodes of chest pressure during the past few weeks. Currently denies any chest pain/pressure. No SOB. Denies fever, chills, nausea, or vomiting. In the ED pt was hypertensive up to 174/86, otherwise vitals WNL. Labs were significant for initial leukocytosis of 13.6 with repeat WNL at 10.8 and random glucose 233, otherwise grossly unremarkable. Stable H& H. No significant electrolyte abnormalities. Renal and hepatic function WNL. Lactic acid WNL at 1.5. Lipase WNL at 30. CT?of abdomen and pelvis found mild diffuse pericolonic stranding and colonic wall thickening likely representing colitis. Also found ill-defined region of hypoattenuation on interpolar region of right kidney. Pt was treated with ketorolac, IVF, morphine, Dilaudid, levofloxacin, and metronidazole. Pt will be admitted to the hospital for treatment and further evaluation of intractable abdominal pain in the setting of colitis suspicious for IBD. Review of Systems 2 Review of Systems: Diffuse abdominal pain x2 days Diarrhea x1 week 2 1-bjihlg-rtny episodes of intermittent chest pressure/tightness Denies fever, chills, nausea, vomiting No shortness of breath PMFSH Medical History Diabetes type 2, controlled Family History Other CAD (coronary artery disease) Social History Household Members: None Housing: Apartment Do you presently have visiting nurse or other home services: No Alcohol intake: current Alcohol intake frequency: a few times a month Alcohol type: beer Patient Tobacco Use Status: Current everyday Tobacco user Cigarette Packs Per Day: 1.5 Cigarettes Per Day: 30.0 Second Hand Smoke Exposure: No Substance Use Type: Crack/Cocaine and Marijuana service: No Meds Allergies Allergy/AdvReac Type Severity Reaction Status Date / Time amoxicillin [AMOXICILLIN] Allergy Unknown ANAPHYLAXIS Verified 11/02/23 00:04 bee pollen [BEE STINGS] Allergy Unknown ANAPHYLAXIS Verified 11/02/23 00:04 tizanidine Allergy Hives Verified 11/02/23 00:04 Active Medications: Current Medications Metronidazole (Flagyl) 500 mg in 100 mls @ 100 mls/hr IV ONCE ONE Stop: 11/02/23 12:57 Levofloxacin (Levaquin) 500 mg in 100 mls @ 100 mls/hr IV ONCE ONE Stop: 11/02/23 12:57 Home Medications ?Medication ?Instructions ?Recorded ?Confirmed ?Last Taken ?Type metformin 500 mg tablet 500 mg PO BID 11/02/23 11/02/23 11/01/23 History Physical Exam 2 Vital Signs and Narrative: Vital Signs: Last Vital Signs Temp 97.8 F 11/02/23 09:52 Pulse 54 11/02/23 09:52 Resp 18 11/02/23 09:52 BP 168/69 H 11/02/23 09:52 Pulse Ox 97 11/02/23 09:52 O2 Del Method Room Air 11/02/23 09:52 BMI result Body Mass Index 33.7 Constitutional: Alert, in no acute distress. Mental Status: Oriented to person, place and time. Eyes: Pupils are equal, round, and reactive to light. Ear, Nose, and Throat: Oropharynx clear, mucous membranes moist. Ears and nose without deformities. Trachea midline. Respiratory: Clear to auscultation bilaterally. No wheezing, rales, or rhonchi. Cardiovascular: S1, S2 regular. No murmurs, rubs, or gallops. Gastrointestinal: Abdomen soft, non-distended, with diffuse tenderness. Normal bowel sounds. Neurologic: Cranial nerves II-XII are grossly intact bilaterally. No focal neurological deficits. Moves all extremities spontaneously. Skin: Warm, dry. Extremities: No edema. Psychiatric: Normal mood and affect. Results Labs 11/02/23 07:29 11/02/23 00:33 Labs: Laboratory Results - last 24 hr 11/02/23 11/02/23 11/02/23 00:33 07:29 09:06 MCV 87.3 86.8 MCH 29.9 30.1 MCHC 34.3 34.7 RDW 11.8 11.9 Plt Count 275 252 MPV 9.7 9.7 Immature Gran % (Auto) 1.0 H 0.2 Neut % (Auto) 76.8 H 57.4 Lymph % (Auto) 14.3 L 30.1 [place] % (Auto) 6.3 9.5 Eos % (Auto) 1.3 2.3 Baso % (Auto) 0.3 0.5 Lymph # (Auto) 2.0 3.2 [place] # (Auto) 0.9 1.0 Eos # (Auto) 0.2 0.3 Baso # (Auto) 0.0 0.1 Abs Immat Gran (auto) 0.14 H 0.02 Absolute Neuts (auto) 10.6 H 6.2 Absolute Nucleated RBC 0.000 0.000 Nucleated RBC % (auto) 0.0 0.0 Anion Gap 14 Estim Creat Clear Calc 126.3 Estimated GFR > 60 Random Glucose 223 H Lactic Acid 1.5 Calcium 9.6 D Total Bilirubin 0.4 AST 15 ALT 15 Alkaline Phosphatase 129 H Total Protein 7.5 Albumin 4.1 Lipase 30 Urine Color Yellow Urine Appearance Clear Urine pH 5.5 Ur Specific [employer] 1.020 Urine Protein Negative Urine Glucose (UA) 250 H Urine Ketones Negative Urine Blood Negative Urine Nitrite Negative Ur Leukocyte Esterase Trace H Urine RBC 0-2 Urine WBC 6-10 H Ur Squamous Epith Cells 6-10 Urine Bacteria None Seen Hyaline Casts 0-2 Imaging Radiologist's Impressions: Impressions Abdomen/Pelvis CT 11/02/23 08:24 IMPRESSION: Mild diffuse pericolonic stranding and colonic wall thickening with prominence of the vasa recta. This likely represents colitis. Infectious etiologies should be considered. Ill-defined region of hypoattenuation in the interpolar region of the right kidney. This was not present/conspicuous on the 10/12/2023 examination. The possibility of focal infection or inflammation cannot be excluded. Assessment and Plan (1) Colitis: Status: Acute Plan Pt is a 38-year-old male with a PMH significant for mmt-zypqtry-zewkryanj type 2 diabetes, HTN, and GERD?who presents to the ED for evaluation of severe abdominal pain with diarrhea x2 days. Pt will be admitted to the hospital for treatment and further evaluation of intractable abdominal pain in the setting of colitis suspicious for IBD. Intractable abdominal pain Patient with diffuse abdominal pain x2 days, diarrhea times week CT of abdomen/pelvis with mild diffuse pericolonic stranding suggestive of colitis Pt with two previous hospitalizations last month for similar symptoms Concerning for possible IBD Pt does not meet sepsis criteria: Leukocytosis, but no tachycardia, tachypnea, or fever; lactic acid WNL at 1.5 Patient given IVF and started on broad-spectrum antibiotics in the ED Will empirically cover with levofloxacin and Flagyl, started 11/02/2023 Analgesics for pain management Clear liquid diet for now, NPO after midnight GI consult, likely colonoscopy tomorrow HTN Continue lisinopril Onh-nyosigm-vybjbwkwr type 2 diabetes Hold metformin SSI, diabetic diet once diet advanced Nicotine dependence NRT Full Code Attending:?Dr. Solis DVT Prophylaxis: Pneumatic boots Pt will require a hospitalization of at least two nights for treatment of?intractable abdominal pain with diarrhea concerning for IBD. Given patient's multiple presentations to the hospital in the past 4 weeks and the intractable nature of his abdominal pain, patient will require hospitalization for administration of IV antibiotics, IV analgesics, and specialist consultation with Gastroenterology with likely additional workup with colonoscopy tomorrow. Quality Stroke Does the patient have a stroke diagnosis?: No VTE Prior VTE?: No VTE Risk Level:: Medical - moderate - high VTE Device Contraindication: N/A - Device Ordered VTE Drug Contraindication: Treatment Not Indicated
[2023-11-02] MEDS: levoFLOXacin/D5W 500 MG/100 ML PIGGYBACK 100 MG IV (12:17)
[2023-11-02] MEDS: metroNIDAZOLE/NS 500 MG/100 ML PIGGYBACK 100 MG IV (12:17)
--- NOTE | 2023-11-02 12:21 | PC.NURSE ---
abx administered per provider order.
--- NOTE | 2023-11-02 13:16 | PC.NURSE ---
pt speaking w/ admitting provider in regards to plan of care at this time.
--- NOTE | 2023-11-02 14:23 | PHA.MEDREC ---
Pharmacy Consult ? Medication Reconciliation Pharmacy has completed the medication reconciliation. Spoke to patient and confirmed medication list. He said he's on lisinopril 10 mg qd and metformin 500 mg bid, no longer taking omeprazole 20 mg.
[2023-11-02] MEDS: Nicotine 21 MG PATCH.TD24 TRANSDERMA (14:34)
[2023-11-02] MEDS: lisinopriL 10 MG TABLET PO (15:16)
[2023-11-02] MEDS: HYDROmorphone HCl 1 MG/ML SYRINGE 0.5 MG IVPUSH ×3 (15:16→23:48)
--- NOTE | 2023-11-02 15:20 | PC.NURSE ---
THIS RN ASSUMED CARE OF PT @ 1500. PT MEDICATE ACCORDING TO MAR
[2023-11-02 16:40] LABS: Glucose, Whole Blood 115 mg/dL (60-115)
--- NOTE | 2023-11-02 17:44 | PM.EVENT ---
Event Note Date of Service: 11/02/23 Event Note: GI Consult-Full note dictated. History from patient and EMR Imp 38 yo male with a history of recent SBO's of unclear etiology now presenting with relatively acute symptoms of a colitis based on his history and CT scan findings. He also describes longstanding GERD for which he is on daily omeprazole. Denies any recent travel, ill contacts, nor antibiotic use. He does have a history of smoking, as well as previous self-reported heavy drinking . Diff dx: IBD-ulcerative or Crohn's colitis vs. infectious colitis Rec: Check stool specimens. Colonoscopy and EGD with MAC on 11/02. Full consent obtained for both procedure, including risks of bleeding and perforation. F/U labs in the AM. D/W patient in detail and he is comfortable with this plan. Thanks Time Spent With Patient Time: Total time managing care of this patient today ____ minutes.
--- NOTE | 2023-11-02 17:53 | MHC.SHP ---
Pre-Procedural Eval Section A - 24 Hr Update-Section A only Date of Service: 11/03/23 The patient is an INPATIENT: Yes The patient has been examined within 24 hours of the surgical procedure. The History & Physical has been completed within 30 days and I have reviewed it.: Yes Section B - Complete if H&P > 30 days Chief Complaint: Intractable abd malissa n Allergies: Allergies Allergy/AdvReac Type Severity Reaction Status Date / Time amoxicillin [AMOXICILLIN] Allergy Unknown ANAPHYLAXIS Verified 11/02/23 00:04 bee pollen [BEE STINGS] Allergy Unknown ANAPHYLAXIS Verified 11/02/23 00:04 tizanidine Allergy Hives Verified 11/02/23 00:04 Plan I have reviewed the history and physical and performed a pertinent physical examination on my patient. No changes have occurred unless specified. Time Spent With Patient Time: Total time managing care of this patient today ____ minutes.
[2023-11-02] MEDS: PEG 3350/Na Sulf,Bicarb,Cl/KCL 4,000 ML SOLN.RECON 4000 ML PO (18:37)
[2023-11-02] MEDS: 0.9 % Sodium Chloride Flush 3 ML SYRINGE IVFLUSH ×2 (18:37→21:43)
[2023-11-02 20:58] LABS: Glucose, Whole Blood 117 mg/dL (60-115)
[2023-11-02 21:31] LABS: Glucose, Whole Blood 114 mg/dL (60-115)
[2023-11-02] MEDS: amLODIPine Besylate 5 MG TABLET PO (21:39)
--- NOTE | 2023-11-02 22:02 | CONS_ITS ---
DATE OF SERVICE: 11/02/2023 REASON FOR CONSULTATION: Abdominal pain, diarrhea, and abnormal CT scan of colon. HISTORY OF PRESENT ILLNESS: The patient is a 38-year-old male who I met during a previous hospitalization in mid October. At that time, he was admitted with a small bowel obstruction of unclear etiology. He had been admitted earlier in October for the same problem. He had no previous abdominal surgeries and therefore was not clear as to why he was having these small bowel obstructions. He did require an NG tube to help with decompression. He went home from the hospital in mid October and since that time, reports he had been doing fairly well. He was not having any issues with abdominal distention nor vomiting. However, about 4 days ago, began having diarrhea with abdominal cramping and pain. He did not notice any sign of bleeding. He had not been on any preceding antibiotics nor does use any significant amounts of NSAIDs. He has been on omeprazole for a long time in regard to reflux. He describes an upper endoscopy over 10 years ago at [facility] and was told of possibly some ulcers. He has been using omeprazole with good relief of heartburn. He denies any anorexia, dysphagia, early satiety, nor any persistent nausea or vomiting. Generally, his bowels are usually regular and without any history of diarrhea nor colitis, up until the past several days. He does have a family history notable on his mother's side of at least 2 or 3 relatives with inflammatory bowel disease of either Crohn disease or ulcerative colitis. MEDICATIONS: Current medications at home included omeprazole, lisinopril, and metformin. Medications here included acetaminophen, Tessalon p.r.n., Dilaudid p.r.n., insulin, Toradol, IV Levaquin, IV Flagyl, nicotine patch, Zofran p.r.n. PAST MEDICAL HISTORY: Small bowel obstructions in October. Hln-drwfnqt-cdyxtopni diabetes mellitus. Hypertension. Gastroesophageal reflux, which has been long-standing. He denies history of heart disease, stroke, nor lung disease. SOCIAL HISTORY: He is presently not working. He does smoke. He describes a history of previous heavy alcohol use but currently describes only occasional use of alcohol and not on a heavy basis by his report. PHYSICAL EXAMINATION: GENERAL: The patient is a pleasant, alert, fairly comfortable appearing male. SKIN: Warm and dry. HEENT: Anicteric sclerae. Moist mucous membranes. NECK: Supple. CHEST: Clear. CARDIAC: Normal S1, S2. ABDOMEN: Soft with normal bowel sounds. He does have some mild diffuse tenderness but without mass, rebound, or guarding. The abdomen is nondistended and non tympanitic. EXTREMITIES: Without edema. LABORATORY DATA: White blood cell count 10.8, hemoglobin 13.7, platelets 252,000. Normal electrolytes. BUN 8, creatinine 0.95. Normal LFTs except for an alkaline phosphatase of 129. Albumin 4.1. Lipase 30. He did have a CT scan of his abdomen describing some mild diffuse pericolonic stranding and colonic wall thickening. The small bowel appeared normal, and there was no sign of any obstruction. IMPRESSION: Given the patient's clinical history of the acute onset of the symptoms, this could certainly speak for an acute infectious colitis. However, he has had no bleeding and no documented fevers. The other possibility would be that of some underlying chronic inflammatory bowel disease with an exacerbation. If indeed he has Crohn disease, he may have some involvement of the ileocecal valve, which may have contributed to his couple of small bowel obstructions last month. I would order stool specimens as you have done to rule out any pathogens. In the meantime, I would hold antibiotics as he does not look toxic, and it may be best to avoid antibiotics unless there is a definitive indication in this regard. I did recommend a colonoscopy for evaluation to inspect for any underlying chronic inflammatory bowel disease as opposed to an acute infectious colitis. I have also recommended an upper endoscopy on the same day due to his long-standing reflux and risk factors of smoking and alcohol use. Full consent has been obtained from him for both procedures, including risks of bleeding and perforation. The procedure will be done with monitored anesthesia care. He will have followup laboratories in the morning. Stool specimens will be checked for the bacterial pathogens and C diff once they have been collected. This has all been discussed in detail with the patient, and he is comfortable with the plan. Thank you for the consultation. MD MICHELET Whitaker/EPI / [id number]
[2023-11-02] MEDS: Melatonin 3 MG TABLET 6 MG PO (23:48)
[2023-11-03] VITALS (8 sets, daily range): BP systolic 172–176; BP diastolic 77–98; PULSE 61–82; RESP 16–18; TEMP 36.3–37.1; O2SAT 95–97
[2023-11-03] MEDS: HYDROmorphone HCl 1 MG/ML SYRINGE 0.5 MG IVPUSH ×3 (04:15→12:54)
[2023-11-03 05:18] LABS: CDiff Gene PCR NEGATIVE (Negative)
--- NOTE | 2023-11-03 05:38 | PC.NURSE ---
pt came up around 2044 bp was 170/100 HR 58. notified. received new order amlodipine 5mg. given by this nurse. rechecked later nothing much changed bp 174/100, HR 58. pt told me he's been high 160 systolic. provided pain meds by eMar. lowest bp 173/77, HR 61. . aware of this BP. pt colonoscopy prep goes slowly 1/3 of solution is done. able to collect stool sample. will cont. monitor
[2023-11-03 07:38] LABS: Glucose, Whole Blood 115 mg/dL (60-115)
[2023-11-03] MEDS: levoFLOXacin/D5W 500 MG/100 ML PIGGYBACK 100 MG IV (08:20)
[2023-11-03] MEDS: Nicotine 21 MG PATCH.TD24 TRANSDERMA (08:20)
[2023-11-03] MEDS: metroNIDAZOLE/NS 500 MG/100 ML PIGGYBACK 100 MG IV (08:20)
[2023-11-03] MEDS: lisinopriL 10 MG TABLET PO (08:21)
[2023-11-03] MEDS: 0.9 % Sodium Chloride Flush 3 ML SYRINGE IVFLUSH ×2 (08:21→21:09)
[2023-11-03 09:06] LABS: MANUAL DIFF FLAG NO
[2023-11-03 09:19] LABS: Basophils Percent Auto 0.4 % (0-2); Eosinophils Absolute Auto 0.2 X10*3/uL (0.0-0.4); Eosinophils Percent Auto 2.2 % (0-4); Hematocrit 35.2 % (42.0-52.0); Hemoglobin 12.2 g/dl (14.0-18.0); Imm Gran Abs Auto 0.02 X10*3/uL (0.00-0.03); Imm Gran Pct Auto 0.3 % (0.0-0.4); Lymphocytes Absolute Auto 2.5 X10*3/uL (1.2-4.9); Lymphocytes Percent Auto 33.2 % (20-40); Mean Corpuscular HGB Conc 34.7 g/dl (31.0-36.0); Mean Corpuscular Hemoglobin 29.8 pg (27.0-33.0); Mean Corpuscular Volume 85.9 fL (80.0-98.0); Mean Platelet Volume 10.4 fL (9.4-12.4); Monocytes Absolute Auto 0.6 X10*3/uL (0.1-1.2); Neutrophils Absolute Auto 4.3 x10*3/uL (2.0-8.3); Neutrophils Percent Auto 55.9 % (45-73); Platelet Count 205 X10*3/uL (160-400); Prothrombin Time 12.4 SEC (11.1-13.3); Red Cell Distribution Width 11.5 % (11.0-16.0); White Blood Count 7.7 X10*3/uL (4.8-10.8)
[2023-11-03] MEDS: Acetaminophen 325 MG TABLET 650 MG PO ×2 (09:24→23:36)
[2023-11-03 09:25] LABS: Adenovirus F 40/41 Not Detected (Not Detect.); Astrovirus Not Detected (Not Detect.); Campylobacter Not Detected (Not Detect.); Cryptosporidium Not Detected (Not Detect.); Cyclospora cayetanensis Not Detected (Not Detect.); E. coli EAEC Not Detected (Not Detect.); E. coli EPEC Detected (Not Detect.); E. coli ETEC Not Detected (Not Detect.); E. coli STEC Not Detected (Not Detect.); Entamoeba histolytica Not Detected (Not Detect.); Giardia lamblia Not Detected (Not Detect.); Plesiomonas shigelloides Not Detected (Not Detect.); Rotavirus A Not Detected (Not Detect.); Salmonella Not Detected (Not Detect.); Sapovirus Not Detected (Not Detect.); Shigella sp./EIEC Not Detected (Not Detect.); Vibrio Not Detected (Not Detect.); Vibrio Cholerae Not Detected (Not Detect.); Yersinia enterocolitica Not Detected (Not Detect.)
[2023-11-03 09:34] LABS: Anion Gap 14 (12-20); Blood Urea Nitrogen 6 mg/dL (9-16); Carbon Dioxide 22 mmol/L (22-29); Chloride 103 mmol/L (96-108); Creatinine Clr Calc Pharmacy 192.2; Estimated Glomerular Filt Rate > 60; Glucose Fasting 101 mg/dL (60-99); Sodium 135 mmol/L (135-145)
[2023-11-03 09:47] LABS: Potassium 3.6 mmol/L (3.3-5.1)
--- NOTE | 2023-11-03 10:44 | MHC.IC ---
NOROVIRUS preliminary positive result. Please maintain strict contact precautions, handwashing w soap and water, and cleaning w bleach.
--- NOTE | 2023-11-03 10:44 | PM.EVENT ---
Event Note Date of Service: 11/03/23 Event Note: GI Follow up Patient's stool specimen is + for an Enteropathogenic E.coli. As this would explain his acute diarrhea and abnormal CT scan, I will hold off on his planned GI procedures. I would recommend supportive care and advancing his diet as tolerated. Thanks Time Spent With Patient Time: Total time managing care of this patient today ____ minutes.
[2023-11-03 11:37] LABS: Glucose, Whole Blood 124 mg/dL (60-115)
--- NOTE | 2023-11-03 12:27 | P.PNIM_ITS ---
Subjective Subjective Date of Service: 11/07/23 Interval History: Feeling better this morning, less abdominal pain, no fevers, no chills, no recurrent diarrhea this morning, was NPO for colonoscopy but since stool is positive for E coli containing the 0157 antigen that are a subset of Shiga- like toxin producing E coli specimen sent to reference lab for further testing. Denies headache, no lightheadedness, no dizziness. Review of Systems All other system reviewed and negative Physical Exam 2 Vital Signs: Vital Signs: Last Vital Signs Temp 97.4 F 11/03/23 07:10 Pulse 65 11/03/23 07:10 Resp 16 11/03/23 07:10 BP 173/77 H 11/03/23 08:21 Pulse Ox 95 11/03/23 07:10 O2 Del Method Room Air 11/03/23 07:10 BMI result Body Mass Index 40.9 Const: Other: General resting comfortably in no acute distress. Neck supple no JVD. CVS regular rate rhythm, Respiratory lungs clear to auscultation, no respiratory distress, no wheeze, no rhonchi. Gastrointestinal abdomen soft, left lower quadrant tenderness with palpation, bowel sounds audible no rigidity no guarding Extremities no edema. Neuro non focal Skin no rash Psych appropriate affect Objective Data Active Medications Acetaminophen (Acetaminophen 325 Mg Tablet) 650 mg PO Q6H PRN PRN Reason: Pain, Mild (Pain Scale 1-3) Last Admin: 11/03/23 09:24 Dose: 650 mg Documented By: YANELIS Amlodipine Besylate (Amlodipine Besylate 5 Mg Tablet) 5 mg PO BEDTIME MARY; Protocol Last Admin: 11/02/23 21:39 Dose: 5 mg Documented By: CAMILLE Benzonatate (Benzonatate 100 Mg Capsule) 100 mg PO TID PRN PRN Reason: Cough Glucose (Glucose Gel 15 Gm Gel..Gram.) 15 gm PO Q15M PRN; Protocol PRN Reason: per Hypoglycemia Standing Ord. Hydromorphone HCl (Hydromorphone Hcl 1 Mg/Ml Syringe) 0.5 mg IVPUSH Q4H PRN; Protocol PRN Reason: Pain, Severe (Pain Scale 7-10) Last Admin: 11/03/23 08:19 Dose: 0.5 mg Documented By: YANELIS Dextrose (D10) 250 mls @ 750 mls/hr IV Q15M PRN; Protocol PRN Reason: per Hypoglycemia Standing Ord. Insulin Human Lispro (Insulin Lispro 100 Unit/Ml 3 Ml Vial) 0 unit SUBCUT QIDACHS [facility]; Protocol Last Admin: 11/03/23 11:58 Dose: Not Given Documented By: YANELIS Non-Admin Reason: No Insulin Coverage Lisinopril (Lisinopril 10 Mg Tablet) 10 mg PO DAILY [facility]; Protocol Last Admin: 11/03/23 08:21 Dose: 10 mg Documented By: YANELIS Melatonin (Melatonin 3 Mg Tablet) 6 mg PO BEDTIME PRN PRN Reason: Insomnia Last Admin: 11/02/23 23:48 Dose: 6 mg Documented By: CAMILLE Nicotine (Nicotine 21 Mg Patch.Td24) 21 mg TRANSDERMA DAILY [facility] Last Admin: 11/03/23 08:20 Dose: 21 mg Documented By: YANELIS Ondansetron HCl (Ondansetron Hcl 4 Mg/2 Ml Vial) 4 mg IVPUSH Q8H PRN PRN Reason: Nausea and Vomiting Sodium Chloride (0.9 % Sodium Chloride Flush 3 Ml Syringe) 3 ml IVFLUSH QSHIFT [facility] Last Admin: 11/03/23 08:21 Dose: 3 ml Documented By: YANELIS Labs 11/03/23 07:21 11/03/23 07:21 Labs: Laboratory Results - last 24 hr 11/02/23 11/02/23 11/02/23 16:35 20:48 21:27 MCV MCH MCHC RDW Plt Count MPV Immature Gran % (Auto) Neut % (Auto) Lymph % (Auto) [place] % (Auto) Eos % (Auto) Baso % (Auto) Lymph # (Auto) [place] # (Auto) Eos # (Auto) Baso # (Auto) Abs Immat Gran (auto) Absolute Neuts (auto) Absolute Nucleated RBC Nucleated RBC % (auto) PT INR Anion Gap Estim Creat Clear Calc Estimated GFR POC Glucose 115 117 H 114 Fasting Glucose Calcium Stl C. cayetanensis PCR Stool Rotavirus A PCR Stl Adenov F 40/41 PCR Stool Astrovirus (PCR) Stool Campylobacter PCR Stool Cryptosporidium PCR Stl Sh Tox Pr E STEC PCR Stool E coli O157 PCR Stl Enterotoxigenic E PCR Stool EPEC (PCR) Stool EAEC (PCR) Stl E. histolytica PCR Stool Giardia Lamblia PCR Stl P. shigelloides PCR Stool Salmonella PCR Stool Sapovirus (PCR) Stl Shigella/EIEC PCR St Y.enterocolitica PCR Stool Vibrio (PCR) Stl Vibrio cholerae PCR Stl Norovirus GI/GII PCR C. difficile Tox B Gene 11/03/23 11/03/23 11/03/23 07:17 07:21 11:31 MCV 85.9 MCH 29.8 MCHC 34.7 RDW 11.5 Plt Count 205 MPV 10.4 Immature Gran % (Auto) 0.3 Neut % (Auto) 55.9 Lymph % (Auto) 33.2 [place] % (Auto) 8.0 Eos % (Auto) 2.2 Baso % (Auto) 0.4 Lymph # (Auto) 2.5 [place] # (Auto) 0.6 Eos # (Auto) 0.2 Baso # (Auto) 0.0 Abs Immat Gran (auto) 0.02 Absolute Neuts (auto) 4.3 Absolute Nucleated RBC 0.000 Nucleated RBC % (auto) 0.0 PT 12.4 INR 1.0 Anion Gap 14 Estim Creat Clear Calc 192.2 Estimated GFR > 60 POC Glucose 115 124 H Fasting Glucose 101 H Calcium 9.0 D Stl C. cayetanensis PCR Stool Rotavirus A PCR Stl Adenov F 40/41 PCR Stool Astrovirus (PCR) Stool Campylobacter PCR Stool Cryptosporidium PCR Stl Sh Tox Pr E STEC PCR Stool E coli O157 PCR Stl Enterotoxigenic E PCR Stool EPEC (PCR) Stool EAEC (PCR) Stl E. histolytica PCR Stool Giardia Lamblia PCR Stl P. shigelloides PCR Stool Salmonella PCR Stool Sapovirus (PCR) Stl Shigella/EIEC PCR St Y.enterocolitica PCR Stool Vibrio (PCR) Stl Vibrio cholerae PCR Stl Norovirus GI/GII PCR C. difficile Tox B Gene 11/03/23 Unknown MCV MCH MCHC RDW Plt Count MPV Immature Gran % (Auto) Neut % (Auto) Lymph % (Auto) [place] % (Auto) Eos % (Auto) Baso % (Auto) Lymph # (Auto) [place] # (Auto) Eos # (Auto) Baso # (Auto) Abs Immat Gran (auto) Absolute Neuts (auto) Absolute Nucleated RBC Nucleated RBC % (auto) PT INR Anion Gap Estim Creat Clear Calc Estimated GFR POC Glucose Fasting Glucose Calcium Stl C. cayetanensis PCR Not Detected Stool Rotavirus A PCR Not Detected Stl Adenov F 40/41 PCR Not Detected Stool Astrovirus (PCR) Not Detected Stool Campylobacter PCR Not Detected Stool Cryptosporidium PCR Not Detected Stl Sh Tox Pr E STEC PCR Not Detected Stool E coli O157 PCR Not applicable Stl Enterotoxigenic E PCR Not Detected Stool EPEC (PCR) Detected A Stool EAEC (PCR) Not Detected Stl E. histolytica PCR Not Detected Stool Giardia Lamblia PCR Not Detected Stl P. shigelloides PCR Not Detected Stool Salmonella PCR Not Detected Stool Sapovirus (PCR) Not Detected Stl Shigella/EIEC PCR Not Detected St Y.enterocolitica PCR Not Detected Stool Vibrio (PCR) Not Detected Stl Vibrio cholerae PCR Not Detected Stl Norovirus GI/GII PCR See Comment C. difficile Tox B Gene NEGATIVE Microbiology Microbiology Results: Microbiology 11/02/23 09:06 Blood Culture - Preliminary Blood - Venous No growth after 24 hours. 11/02/23 09:06 Blood Culture - Preliminary Blood - Venous No growth after 24 hours. 11/02/23 Unknown Urine Culture - Final Urine clean catch - Urine reyes top Assessment and Plan (1) E coli enteritis: Status: Acute Plan 38-year-old male with a PMH significant for xse-azjnryc-dflssedlg type 2 diabetes, HTN, and GERD?who presents to the ED for evaluation of severe abdominal pain with diarrhea x2 days. Pt will be admitted to the hospital for treatment and further evaluation of intractable abdominal pain in the setting of colitis suspicious for IBD. Intractable abdominal pain Patient with diffuse abdominal pain x2 days, diarrhea for [address] of abdomen/pelvis with mild diffuse pericolonic stranding suggestive of colitis/no sepsis. Due to recurrent episodes of abdominal pain, he was evaluated by Dr. Rod and was scheduled for colonoscopy this morning however stool study came back positive for E coli , specimen sent to reference lab, likely cause of his symptoms Colonoscopy canceled IV antibiotics discontinued Patient placed on clear liquid diet will advance as tolerated HTN Noted to have elevated blood pressures, Continue lisinopril, resume home dose of Norvasc follow BP Arc-rwqnelj-mndzqzwow type 2 diabetes Stable blood sugars, Hold metformin SSI, diabetic diet once diet advanced Nicotine dependence continue nicotine patch 21 mg daily counseling done. Full Code DVT Prophylaxis: Pneumatic boots Pt will require continued inpatient hospitalization for persistent abdominal pain likely due to E coli infection, will advance diet as tolerated, follow final stool culture result. Quality Stroke Does the patient have a stroke diagnosis?: No VTE Prior VTE?: No VTE Risk Level:: Medical - moderate - high VTE Device Contraindication: N/A - Device Ordered VTE Drug Contraindication: Treatment Not Indicated
--- NOTE | 2023-11-03 13:26 | MHC.CM.PN ---
pt lives alone had no previous servies .has transport home report livivng alone
[2023-11-03 16:29] LABS: Glucose, Whole Blood 126 mg/dL (60-115)
[2023-11-03] MEDS: HYDROmorphone HCl 0.5 MG/0.5 ML SYRINGE IVPUSH ×2 (16:55→21:09)
[2023-11-03 20:31] LABS: Glucose, Whole Blood 118 mg/dL (60-115)
[2023-11-03] MEDS: amLODIPine Besylate 5 MG TABLET PO (21:08)
[2023-11-04] MEDS: Melatonin 3 MG TABLET 6 MG PO ×2 (00:12→20:09)
[2023-11-04] MEDS: HYDROmorphone HCl 0.5 MG/0.5 ML SYRINGE IVPUSH ×5 (00:47→20:06)
[2023-11-04 03:47] VITALS: BP 162/84; PULSE 60; RESP 16; TEMP 36.6; O2SAT 96
[2023-11-04 05:30] VITALS: BP 162/82
[2023-11-04 07:28] LABS: Glucose, Whole Blood 116 mg/dL (60-115)
[2023-11-04 07:31] VITALS: BP 150/79; PULSE 56; RESP 18; TEMP 36.4; O2SAT 96
[2023-11-04] MEDS: lisinopriL 10 MG TABLET PO (07:53)
[2023-11-04] MEDS: Nicotine 21 MG PATCH.TD24 TRANSDERMA (07:53)
[2023-11-04] MEDS: 0.9 % Sodium Chloride Flush 3 ML SYRINGE IVFLUSH ×3 (07:54→20:09)
[2023-11-04 11:20] LABS: Glucose, Whole Blood 163 mg/dL (60-115)
--- NOTE | 2023-11-04 11:24 | HO.PM.IMPN ---
Subjective Subjective Date of Service: 11/04/23 Interval History: Slowly improving per patient. Stools lessening. Still with abdominal discomfort. Review of Systems Denies chest pain Denies shortness of breath Denies nausea vomiting Admits diarrhea Denies fever chills Physical Exam Vital Signs: Vital Signs: Last Vital Signs Temp 97.5 F 11/04/23 07:31 Pulse 56 11/04/23 07:31 Resp 18 11/04/23 07:31 BP 150/79 H 11/04/23 07:31 Pulse Ox 96 11/04/23 07:31 O2 Del Method Room Air 11/04/23 07:31 BMI result Body Mass Index 40.9 Const: Other: Awake alert oriented x3 no acute distress Resp: Other: Clear to auscultation bilaterally no rales rhonchi or wheezes Cardio: Other: No S4; positive S1-S2; no S3 murmurs rubs or gallops GI: Other: Soft nontender nondistended normoactive bowel sounds Extrem: Other: No edema bilaterally Objective Data Active Medications Acetaminophen (Acetaminophen 325 Mg Tablet) 650 mg PO Q6H PRN PRN Reason: Pain, Mild (Pain Scale 1-3) Last Admin: 11/03/23 23:36 Dose: 650 mg Documented By: YONG Amlodipine Besylate (Amlodipine Besylate 5 Mg Tablet) 5 mg PO BEDTIME [facility]; Protocol Last Admin: 11/03/23 21:08 Dose: 5 mg Documented By: CAMILLE Benzonatate (Benzonatate 100 Mg Capsule) 100 mg PO TID PRN PRN Reason: Cough Glucose (Glucose Gel 15 Gm Gel..Gram.) 15 gm PO Q15M PRN; Protocol PRN Reason: per Hypoglycemia Standing Ord. Hydromorphone HCl (Hydromorphone Hcl 0.5 Mg/0.5 Ml Syringe) 0.5 mg IVPUSH Q4H PRN; Protocol PRN Reason: Pain, Severe (Pain Scale 7-10) Last Admin: 11/04/23 09:54 Dose: 0.5 mg Documented By: BETHEL Dextrose (D10) 250 mls @ 750 mls/hr IV Q15M PRN; Protocol PRN Reason: per Hypoglycemia Standing Ord. Insulin Human Lispro (Insulin Lispro 100 Unit/Ml 3 Ml Vial) 0 unit SUBCUT QIDACHS [facility]; Protocol Last Admin: 11/04/23 07:36 Dose: Not Given Documented By: BETHEL Non-Admin Reason: No Insulin Coverage Lisinopril (Lisinopril 10 Mg Tablet) 10 mg PO DAILY [facility]; Protocol Last Admin: 11/04/23 07:53 Dose: 10 mg Documented By: BETHEL Melatonin (Melatonin 3 Mg Tablet) 6 mg PO BEDTIME PRN PRN Reason: Insomnia Last Admin: 11/04/23 00:12 Dose: 6 mg Documented By: YONG Nicotine (Nicotine 21 Mg Patch.Td24) 21 mg TRANSDERMA DAILY [facility] Last Admin: 11/04/23 07:53 Dose: 21 mg Documented By: BETHEL Ondansetron HCl (Ondansetron Hcl 4 Mg/2 Ml Vial) 4 mg IVPUSH Q8H PRN PRN Reason: Nausea and Vomiting Sodium Chloride (0.9 % Sodium Chloride Flush 3 Ml Syringe) 3 ml IVFLUSH QSHIFT [facility] Last Admin: 11/04/23 07:54 Dose: 3 ml Documented By: BETHEL Labs 11/03/23 07:21 11/03/23 07:21 Labs: Laboratory Results - last 24 hr 11/03/23 11/03/23 11/03/23 11:31 16:23 20:24 POC Glucose 124 H 126 H 118 H 11/04/23 11/04/23 07:12 11:14 POC Glucose 116 H 163 H Microbiology Microbiology Results: Microbiology 11/02/23 09:06 Blood Culture - Preliminary Blood - Venous No growth after 48 hours. 11/02/23 09:06 Blood Culture - Preliminary Blood - Venous No growth after 48 hours. 11/02/23 Unknown Urine Culture - Final Urine clean catch - Urine reyes top Assessment and Plan (1) E coli enteritis: Status: Acute (2) HTN (hypertension): Status: Acute (3) Diabetes type 2, controlled: Status: Acute Plan 38-year-old male with a PMH significant for wwe-xvwbyhl-xfwgbglri type 2 diabetes, HTN, and GERD?who presents to the ED for evaluation of severe abdominal pain with diarrhea x2 days. Culture ultimately positive for E coli 1.Intractable abdominal pain secondary to EPEC -supplemental IV fluids until taking adequate p.o. -advance diet as tolerated 2.HTN -acceptable control on current therapies -adjust as indicated 3.Nap-wbaccjr-mxhcqkcad type 2 diabetes -acceptable control off metformin-lispro correctional scale -adfjust as indicated 3.Nicotine dependence -continue nicotine patch 21 mg daily counseling done. Full Code Pneumatic boots Pt will require continued inpatient hospitalization for persistent abdominal pain due to E coli infection, will advance diet as tolerated, follow final stool culture result. Quality Stroke Does the patient have a stroke diagnosis?: No VTE Prior VTE?: No VTE Risk Level:: Medical - moderate - high VTE Device Contraindication: N/A - Device Ordered VTE Drug Contraindication: Treatment Not Indicated
[2023-11-04] MEDS: Insulin Lispro 100 UNIT/ML 3 ML VIAL SUBCUT ×3 (12:27→21:00)
[2023-11-04 14:59] VITALS: BP 150/78; PULSE 65; RESP 18; TEMP 36.7; O2SAT 95
[2023-11-04 15:58] LABS: Glucose, Whole Blood 166 mg/dL (60-115)
[2023-11-04] MEDS: oxyCODONE HCl Immed Release 5 MG TABLET 10 MG PO (18:13)
[2023-11-04 19:24] VITALS: BP 178/87; PULSE 65; RESP 18; TEMP 36.6; O2SAT 96
[2023-11-04 20:06] VITALS: BP 178/87
[2023-11-04] MEDS: amLODIPine Besylate 5 MG TABLET PO (20:06)
[2023-11-04 20:17] LABS: Glucose, Whole Blood 168 mg/dL (60-115)
[2023-11-05] MEDS: HYDROmorphone HCl 0.5 MG/0.5 ML SYRINGE IVPUSH ×3 (00:09→10:30)
[2023-11-05] MEDS: oxyCODONE HCl Immed Release 5 MG TABLET 10 MG PO ×2 (02:25→08:10)
[2023-11-05 04:00] VITALS: BP 152/85; PULSE 68; RESP 17; TEMP 36.4; O2SAT 99
[2023-11-05 07:44] VITALS: BP 152/70; PULSE 52; RESP 18; TEMP 36.2; O2SAT 94
[2023-11-05 08:10] LABS: Glucose, Whole Blood 106 mg/dL (60-115)
[2023-11-05] MEDS: lisinopriL 10 MG TABLET PO (08:11)
[2023-11-05] MEDS: Nicotine 21 MG PATCH.TD24 TRANSDERMA (08:11)
[2023-11-05] MEDS: 0.9 % Sodium Chloride Flush 3 ML SYRINGE IVFLUSH (08:16)
[2023-11-05] MEDS: Magnesium Hydrox/Alum Hydrox 30 ML ORAL.SUSP PO (10:30)
[2023-11-05 11:08] LABS: Glucose, Whole Blood 141 mg/dL (60-115)
--- NOTE | 2023-11-05 11:30 | PM.DS ---
DS: Providers Provider Date of Service: 11/05/23 Date of admission: 11/02/23 13:58 Date of discharge: 11/05/23 Primary care physician: Unknown Physician Consults: 11/02/23 14:05 Consult to Gastroenterology Routine Consulting Provider: Grabiel Rod Reason for consultation: Intractable abdominal pain, ?IBD DS: Diagnosis Discharge Diagnosis (1) E coli enteritis: Status: Acute (2) HTN (hypertension): Status: Acute (3) Diabetes type 2, controlled: Status: Acute DS: Summary Hospital Course Hospital Course: 38-year-old male with a PMH significant for foe-jylmsqk-kpqhtbiro type 2 diabetes, HTN, and GERD?who presents to the ED for evaluation of severe abdominal pain with diarrhea x2 days. Patient has had multiple presentations for similar symptoms in the past month: Was initially hospitalized from 10/03-10/09 for question of SBO where he had NGT placed and was treated conservatively. Symptoms returned one day after discharge and he was re-hospitalized from 10/11-10/15 where he was again treated conservatively for nonspecific gastroenteritis. Pt states his stomach felt weird for the past 3-4 days but did not become painful until 2 days ago. Last night pain worsened until pt was doubled over in agony and came to ED for further evaluation. Has also been experiencing non-bloody, painless diarrhea for the past week+, up to 10 episodes per day depending on intake. No chest pain but states has had a couple of 1-minute episodes of chest pressure during the past few weeks. Currently denies any chest pain/pressure. No SOB. Denies fever, chills, nausea, or vomiting. In the ED pt was hypertensive up to 174/86, otherwise vitals WNL. Labs were significant for initial leukocytosis of 13.6 with repeat WNL at 10.8 and random glucose 233, otherwise grossly unremarkable. Stable H& H. No significant electrolyte abnormalities. Renal and hepatic function WNL. Lactic acid WNL at 1.5. Lipase WNL at 30. CT?of abdomen and pelvis found mild diffuse pericolonic stranding and colonic wall thickening likely representing colitis. Also found ill-defined region of hypoattenuation on interpolar region of right kidney. Pt was treated with ketorolac, IVF, morphine, Dilaudid, levofloxacin, and metronidazole. Pt will be admitted to the hospital for treatment and further evaluation of intractable abdominal pain in the setting of colitis suspicious for IBD. Hospital Course Patient was admitted to general medical floor and started on Levaquin and Flagyl. He was maintained on clear liquids. Ultimately stool was positive for EPEC. Antibiotics were DC; seen by ID who recommended conservative therapies. Over the course next 48 hours diet was advanced without issue. At this point time he will be discharged to home and follow-up with his PCP. Amlodipine has been added to his hypertensive regimen and omeprazole has been added for mild dyspepsia. Time Attestation Discharge Coordination Time (in mins): 35 Quality: Safe Use of Opioids Does Pt have an Active Cancer Diagnosis on the Problem List?: No Quality: Stroke Does the patient have a stroke diagnosis?: No Physical Exam Vital Signs: Vital Signs: Last Vital Signs Temp 97.1 F 11/05/23 07:44 Pulse 52 11/05/23 07:44 Resp 18 11/05/23 07:44 BP 152/70 H 11/05/23 07:44 Pulse Ox 94 11/05/23 07:44 O2 Del Method Room Air 11/05/23 07:44 BMI result Body Mass Index 40.9 Const: Other: Awake alert oriented x3 no acute distress Resp: Other: Clear to auscultation bilaterally no rales rhonchi or wheezes Cardio: Other: No S4; positive S1-S2; no S3 murmurs rubs or gallops GI: Other: Soft nontender nondistended normoactive bowel sounds Extrem: Other: No edema bilaterally DS: Data Data Completed and Pending Labs on day of discharge: Laboratory Results - last 24 hr 11/04/23 11/04/23 11/05/23 15:54 20:14 08:06 POC Glucose 166 H 168 H 106 11/05/23 10:54 POC Glucose 141 H Preliminary micro results at discharge 11/02/23 09:06 Blood Culture - Preliminary Blood - Venous No growth after 48 hours. 11/02/23 09:06 Blood Culture - Preliminary Blood - Venous No growth after 48 hours. Discharge Plan Discharge Anticipated Discharge Date/Time: 11/05/23 11:25 Patient Disposition: Home, Self-Care Discharge Diagnosis: EColi enteritis Referrals: [facility] [Other] - 1 Week Physician,Unknown J [Primary Care Provider] - 1 Week Discharge Medications: New amlodipine 5 mg Tablet 5 mg PO BEDTIME Qty: 30 0RF Protocol: Hold for SBP< HOLD for SBP < : 90 oxycodone 10 mg tablet 10 mg PO Q6H PRN (Reason: pain) Qty: 20 0RF Rx Instructions: Partial Fill upon patient request. omeprazole 40 mg capsule,delayed release(DR/EC) 40 mg PO DAILY Qty: 30 0RF Continued lisinopril 10 mg Tablet 10 mg PO DAILY Qty: 30 1RF Protocol: Hold for SBP< HOLD for SBP < : 90 metformin 500 mg Tablet 500 mg PO BID Discharge Orders: Discharge Order (Routine); Ordered 11/05/23 Ordered By: Zach Art Diet: Advance to usual diet Activity on Discharge: As tolerated Stand Alone Forms: Patient Portal Discharge page Print Language: [place] Care Plan Goals: Follow-up with PCP next available appointment Health Concerns: Utilize oxycodone for belly pain as needed Plan of Treatment: Amlodipine 5 mg has been added to your blood pressure medicine. Assessment: See discharge summary
--- NOTE | 2023-11-05 11:35 | MHC.CM.PN ---
EMR reviewed. Patient is medically cleared for dc home self care. [place] [facility] [place]. RN aware.
[2023-11-07 14:53] LABS: Norovirus Stool PCR NOT DETECTED
== END 2023-11-05 12:43 | disposition home or self-care (01) | DRG 248 ==
LOC: HO.ED 11-02 13:41 → HO.EDOVER 11-02 14:06 → HO.S3 11-02 19:22
PROVIDERS: Hospitalist; Internal Medicine; Physician Assistant; Admitting Provider Student in an Organized Health Care Education/Training Program; Emergency Provider Emergency Medicine; Visit Provider Hospitalist
DX: A04.0 Enteropathogenic Escherichia coli infection (principal); E11.9 Type 2 diabetes mellitus without complications; F17.210 Nicotine dependence, cigarettes, uncomplicated; I10 Essential (primary) hypertension; K21.9 Gastro-esophageal reflux disease without esophagitis; Z71.6 Tobacco abuse counseling; Z79.84 Long term (current) use of oral hypoglycemic drugs; Z79.899 Other long term (current) drug therapy
CPT/HCPCS: 36415; 74177; 80048; 80053; 81001; 82947; 83605; 83690; 85025; 85610; 87040; 87086; 87493; 87507; 99285; J1170; J1836; J1885; J1956; J2270; Q9967

== ENCOUNTER → 2023-11-02 13:58 | Outpatient (BNV) | payer MEDICAID, SELFPAY | PROVIDERS: Admitting Provider Student in an Organized Health Care Education/Training Program; Emergency Provider Emergency Medicine; Visit Provider Student in an Organized Health Care Education/Training Program | DX: K52.9 Noninfective gastroenteritis and colitis, unspecified (principal) | CPT/HCPCS: 99223; 99232; 99239 ==